=== PATIENT | female | born 1995 | race Caucasian/White ===

== ENCOUNTER 2018-03-23 11:48 | Emergency (ER) | payer BC ==
[2018-03-23] MEDS ORDERED: Sodium Chloride 0.9% 1,000 ML IV ONE (12:13)
[2018-03-23] MEDS ORDERED: Ondansetron 4 MG/2 ML SDV IVPUSH ONE (12:13)
[2018-03-23] MEDS ORDERED: Loperamide 2 MG Cap PO STA (12:13)
--- NOTE | 2018-03-23 12:15 | EDM.PDOC ---
ED HPI GENERAL MEDICAL PROBLEM - General Chief Complaint: Gastrointestinal Problem Stated Complaint: DIARRHEA/VOMITING Time Seen by Provider: 03/23/18 12:00 Source of Information: Reports: Patient, Family (Sister) History Limitations: Reports: No Limitations - History of Present Illness INITIAL COMMENTS - FREE TEXT/NARRATIVE: The patient states that she has had watery diarrhea since , 03/21/2018, had nausea with emesis since last night. No recent fever. She feels generally weak. She has had abdominal cramps. No urinary symptoms. No recent spoiled food, however, several family members had similar gastric intestinal symptoms last week. No recent antibiotics. No recent travel. The patient states that she took NyQuil, with no relief of her symptoms. The patient does not have a PCP. - Related Data Allergies Allergy/AdvReac Type Severity Reaction Status Date / Time Penicillins Allergy Hives Verified 03/23/18 12:01 Home Meds: Home Meds Albuterol [Ventolin HFA] 2 puff INH Q6H 03/23/18 [History] Ondansetron [Zofran ODT] 1 tab PO Q8H PRN #10 tab.dis 03/23/18 [Rx] Past Medical History Respiratory History: Reports: Asthma (possible - never tested) Endocrine/Metabolic History: Reports: Obesity/BMI 30+ - Past Surgical History HEENT Surgical History: Reports: Myringotomy w Tube(s) (bilateral), Tonsillectomy Social & Family History - Tobacco Use Smoking Status *Q: Never Smoker - Alcohol Use Alcohol Use History: Yes Alcohol Use Frequency: Rarely - Recreational Drug Use Recreational Drug Use: Yes Drug Use in Last 12 Months: Yes Recreational Drug Type: Reports: Marijuana/Hashish (smokes on occasion) - Living Situation & Occupation Living situation: Reports: Single, Alone Occupation: Employed ([employer]) ED ROS GENERAL - Review of Systems Review Of Systems: ROS reveals no pertinent complaints other than HPI. ED EXAM, GI/ABD - Physical Exam Exam: See Below Exam Limited By: No Limitations General Appearance: Alert, WD/WN, No Apparent Distress Eyes: Bilateral: Normal Appearance, EOMI Ears: Normal External Exam, Hearing Grossly Normal Nose: Normal Inspection, No Blood Throat/Mouth: Normal Inspection, Normal Lips, Normal Voice, No Airway Compromise Head: Atraumatic, Normocephalic Neck: Normal Inspection, Full Range of Motion Respiratory/Chest: No Respiratory Distress, Lungs Clear, Normal Breath Sounds, No Accessory Muscle Use Cardiovascular: Normal Peripheral Pulses, Regular Rate, Rhythm, No Gallop, No JVD, No Murmur, No Rub GI/Abdominal Exam: Normal Bowel Sounds, Soft, No Organomegaly, No Distention, No Abnormal Bruit, No Mass, Pelvis Stable, Tender (mild, epigastric. Minimal discomfort with palpation elsewhere.), Other (Obese) (Female) Exam: Deferred Rectal (Female) Exam: Deferred Back Exam: Normal Inspection, Full Range of Motion, NT Extremities: Normal Inspection, Normal Range of Motion, No Pedal Edema, Normal Capillary Refill Neurological: Alert, Oriented, Normal Cognition, No Motor/Sensory Deficits Psychiatric: Normal Affect Skin Exam: Warm, Dry, Intact, Normal Color, No Rash Course - Vital Signs Last Recorded V/S: Last Vital Signs Temp 36.7 C 03/23/18 11:57 Pulse 92 03/23/18 11:57 Resp 18 03/23/18 11:57 BP 141/94 H 03/23/18 11:57 Pulse Ox 97 03/23/18 11:57 Orthostatic Blood Pressure [ 127/77 Standing] Orthostatic Blood Pressure [ 131/105 Sitting] Orthostatic Blood Pressure [ 131/81 Supine] - Orders/Labs/Meds Orders: Active Orders 24 hr Category Date Time Status Orthostatic Vital Signs [RC] STAT Care 03/23/18 12:02 Active CULTURE STOOL + SHIGATOX [RM] Stat Lab 03/23/18 13:03 Ordered NOROVIRUS, RT-PCR Stat Lab 03/23/18 13:03 Received ROTAVIRUS DIRECT ANTIGEN STOOL [OP] Stat Lab 03/23/18 13:03 COMP WBC, STOOL [OP] Stat Lab 03/23/18 13:03 COMP Labs: Laboratory Tests 03/23/18 03/23/18 Range/Units 12:00 12:00 WBC 6.43 (3.98-10.04) K/mm3 RBC 4.99 (3.98-5.22) M/mm3 Hgb 13.1 (11.2-15.7) gm/L Hct 39.9 (34.1-44.9) % MCV 80.0 (79.4-94.8) fl MCH 26.3 (25.6-32.2) pg MCHC 32.8 (32.2-35.5) g/dl RDW Std Deviation 45.0 (36.4-46.3) fL Plt Count 222 (182-369) K/mm3 MPV 10.5 (9.4-12.3) fl Neutrophils % (Manual) 69 H (40-60) % Band Neutrophils % 0 (0-10) % Lymphocytes % (Manual) 24 (20-40) % Atypical Lymphs % 0 % Monocytes % (Manual) 3 (2-10) % Eosinophils % (Manual) 4 (0.7-5.8) % Basophils % (Manual) 0 L (0.1-1.2) Platelet Estimate Decreased RBC Morph Comment Normal Sodium 137 (136-145) mEq/L Potassium 3.6 (3.5-5.1) mEq/L Chloride 102 (98-107) mEq/L Carbon Dioxide 23 (21-32) mEq/L Anion Gap 15.6 H (5-15) BUN 9 (7-18) mg/dL Creatinine 0.9 (0.55-1.02) mg/dL Est Cr Clr Drug Dosing 94.54 mL/min Estimated GFR (MDRD) > 60 (>60) mL/min BUN/Creatinine Ratio 10.0 L (14-18) Glucose 109 H (74-106) mg/dL Calcium 9.4 (8.5-10.1) mg/dL Magnesium 2.2 (1.8-2.4) mg/dl Total Bilirubin 0.4 (0.2-1.0) mg/dL AST 31 (15-37) U/L ALT 28 (14-59) U/L Alkaline Phosphatase 65 (46-116) U/L Total Protein 8.3 H (6.4-8.2) g/dl Albumin 4.2 (3.4-5.0) g/dl Globulin 4.1 gm/dL Albumin/Globulin Ratio 1.0 (1-2) Lipase 52 L (73-393) U/L Meds: Medications Discontinued Medications Generic Name Dose Route Start Last Admin Trade Name Freq PRN Reason Stop Dose Admin Sodium Chloride 1,000 mls @ 999 mls/hr 03/23/18 12:13 03/23/18 12:28 Normal Saline IV 03/23/18 13:13 999 mls/hr ONETIME ONE Administration Loperamide HCl 4 mg 03/23/18 12:13 03/23/18 12:30 Imodium PO 03/23/18 12:14 4 mg ONETIME STA Administration Ondansetron HCl 4 mg 03/23/18 12:13 03/23/18 12:30 Zofran IVPUSH 03/23/18 12:14 4 mg ONETIME ONE Administration - Re-Assessments/Exams Free Text/Narrative Re-Assessment/Exam: 03/23/18 12:31 The patient is not orthostatic. 03/23/18 14:26 Test results discussed with the patient and her sister. The stool rotavirus has not returned, but the ED is very busy, and I don't suspect that it will return for several hours, and will not change the patient's management either way. Today's workup is consistent with the patient having viral gastroenteritis. She was started on Imodium and Zofran here in the ED, and I will discharge her home with a prescription for Zofran. I will refer her to the clinic for follow-up, if needed. Departure - Departure Time of Disposition: 14:27 Disposition: Home, Self-Care 01 Condition: Good Clinical Impression: Viral gastroenteritis - Discharge Information *PRESCRIPTION DRUG MONITORING PROGRAM REVIEWED*: Not Applicable *COPY OF PRESCRIPTION DRUG MONITORING REPORT IN PATIENT MARIBELL: Not Applicable Prescriptions: Ondansetron [Zofran ODT] 1 tab PO Q8H PRN #10 tab.dis PRN Reason: Nausea/Vomiting Instructions: Viral Gastroenteritis, Adult, [id number] Referrals: PCP,None [Primary Care Provider] - Bailey Yung, [employer] [ED Midlevel Provider] - Forms: ED Department Discharge Additional Instructions: You were seen in the emergency room for nausea, vomiting, and watery diarrhea. Workup in the ER included blood work, positional blood pressure checks, and several stool studies. You are MOST LIKELY suffering from viral gastroenteritis. Unfortunately, there are no medicines to get rid of the virus - it will have to run its course, however, there are medicines to help treat your symptoms. You have been started on the anti-nausea medicine Zofran. A prescription for Zofran has been sent to the [facility], [address] [facility], located just south and across the [address] from [facility]. Dissolve 1 tablet on your tongue up to every 8 hours, as needed for nausea/vomiting. You have been started on the anti-diarrhea medicine loperamide (Imodium). Take 1 tablet after each loose bowel movement, for total of 8 tablets within a 24- hour period. Be aware that you were given 2 tablets in the ER. Stay well hydrated. Gatorade or Powerade are best. Follow-up with Bailey Yung in the clinic, to establish a primary care provider. - My Orders Last 24 Hours: My Active Orders 03/23/18 12:02 Orthostatic Vital Signs [RC] STAT 03/23/18 13:03 CULTURE STOOL + SHIGATOX [RM] Stat NOROVIRUS, RT-PCR Stat ROTAVIRUS DIRECT ANTIGEN STOOL [OP] Stat WBC, STOOL [OP] Stat - Assessment/Plan Last 24 Hours: My Active Orders 03/23/18 12:02 Orthostatic Vital Signs [RC] STAT 03/23/18 13:03 CULTURE STOOL + SHIGATOX [RM] Stat NOROVIRUS, RT-PCR Stat ROTAVIRUS DIRECT ANTIGEN STOOL [OP] Stat WBC, STOOL [OP] Stat
== END 2018-03-23 14:45 | disposition home or self-care (01) ==
LOC: JD.ED 11:48
DX: A08.4 Viral intestinal infection, unspecified (principal); E66.9 Obesity, unspecified; Z88.0 Allergy status to penicillin
CPT/HCPCS: 36415; 80053; 83690; 83735; 85007; 85027; 87046; 87425; 87798; 89055; 96361; 96374; 99284; A9270; J2405; J7040; 87427

== ENCOUNTER 2018-12-12 11:12 | Emergency (ER) | payer BC | END 2018-12-12 12:41 | disposition left against medical advice (07) | LOC: JD.ED 11:12 | DX: Z53.21 Procedure and treatment not carried out due to patient leaving prior to being seen by health care provider (principal) ==

== ENCOUNTER 2018-12-14 09:01 | Emergency (ER) | payer BC ==
[2018-12-14] MEDS ORDERED: Metoclopramide 10 MG/2 ML SDV IVPUSH STA (09:33)
[2018-12-14] MEDS ORDERED: Sodium Chloride 0.9% 1,000 ML IV ONE (09:33)
[2018-12-14] MEDS ORDERED: Dicyclomine 20 MG/2 ML SDV IM ONE (09:50)
--- NOTE | 2018-12-14 09:50 | EDM.PDOC ---
ED HPI GENERAL MEDICAL PROBLEM - General Chief Complaint: Abdominal Pain Stated Complaint: VOMITTING/CHEST PAIN Time Seen by Provider: 12/14/18 09:20 Source of Information: Reports: Patient, RN Notes Reviewed History Limitations: Reports: No Limitations - History of Present Illness INITIAL COMMENTS - FREE TEXT/NARRATIVE: The patient presents for symptoms of nausea, vomiting, and watery diarrhea since 12/11/2018. Medical records indicates that the patient came to this ED on 12/12/2018, but left without being seen. The patient tells me that because of a long ER wait time, she instead went to [facility] ED. Medical records obtained from [facility] ED from 12/12/2018 indicate that the patient presented with a history of nausea, vomiting, diarrhea, and diffuse abdominal cramping that began 12/11/2018. She reported that she smoked marijuana rarely. On examination, her abdomen had mild diffuse tenderness to palpation. Workup included a CBC, CMP, lipase level, urinalysis, urine test, and influenza swab. Her blood glucose was found to be elevated at 148, and her bicarbonate level depressed at 20. The remainder of her workup was unremarkable. She was diagnosed with gastroenteritis and discharged home with prescriptions for Bentyl 20 mg and Reglan 10 mg. She now presents to our ED stating that her symptoms have persisted. She states that her symptoms improved after she was seen in [place], but that they recurred. She states that she has been taking the Reglan every 4 hours, as prescribed, with her most recent dose around 07:30 this morning. The patient denies eating any spoiled food recently. No recent antibiotics. No recent travel. No similarly ill close contacts. The patient states that she had similar symptoms in the past, from March 2018 through May 2018. Her symptoms at that time were thought related to her gallbladder, and, indeed, she has not had any symptoms since she underwent a cholecystectomy in June 2018. The patient states that she has never undergone an EGD or colonoscopy. The patient's PCP is Dr. Jayla Figueroa, in [place]. Left Upper Abdomen Pain Score (Numeric/FACES): 8 - Related Data Allergies Allergy/AdvReac Type Severity Reaction Status Date / Time cheese Allergy unknown Verified 12/17/18 18:24 gluten Allergy unknown Verified 12/17/18 18:24 mold Allergy unknown Verified 12/17/18 18:24 Penicillins Allergy Hives Verified 12/17/18 18:24 Home Meds: Home Meds . [No Known Home Meds] 12/12/18 [History] Past Medical History Respiratory History: Reports: Asthma (suspected, not tested) Endocrine/Metabolic History: Reports: Obesity/BMI 30+ - Infectious Disease History Infectious Disease History: Reports: Chicken Pox - Past Surgical History HEENT Surgical History: Reports: Adenoidectomy, Myringotomy w Tube(s) (bilateral ), Tonsillectomy GI Surgical History: Reports: Cholecystectomy (jun 2018) Social & Family History - Family History Family Medical History: Noncontributory - Tobacco Use Smoking Status *Q: Never Smoker - Caffeine Use Caffeine Use: Reports: None - Alcohol Use Alcohol Use History: Yes Alcohol Use Frequency: Rarely - Recreational Drug Use Recreational Drug Use: Yes Drug Use in Last 12 Months: Yes Recreational Drug Type: Reports: Marijuana/Hashish (last smoked late November 2018) - Living Situation & Occupation Living situation: Reports: Single, with Significant Other (Boyfriend) Occupation: Employed ([employer]) ED ROS GENERAL - Review of Systems Review Of Systems: ROS reveals no pertinent complaints other than HPI. ED EXAM, GI/ABD - Physical Exam Exam: See Below Exam Limited By: No Limitations General Appearance: Alert, WD/WN, No Apparent Distress Eyes: Bilateral: Normal Appearance, EOMI Ears: Normal External Exam, Hearing Grossly Normal Nose: Normal Inspection Throat/Mouth: Normal Inspection, Normal Lips, Normal Voice, No Airway Compromise Head: Atraumatic, Normocephalic Neck: Normal Inspection, Full Range of Motion Respiratory/Chest: No Respiratory Distress, Lungs Clear, Normal Breath Sounds, No Accessory Muscle Use Cardiovascular: Normal Peripheral Pulses, Regular Rate, Rhythm, No Gallop, No JVD, No Murmur, No Rub GI/Abdominal Exam: Normal Bowel Sounds, Soft, No Organomegaly, No Distention, No Abnormal Bruit, No Mass, Tender (mild, generalized, non-focal), Other (Obese) (Female) Exam: Deferred Rectal (Female) Exam: Deferred Back Exam: Normal Inspection, Full Range of Motion. No: CVA Tenderness (L), CVA Tenderness (R) Extremities: Normal Inspection, Normal Range of Motion, No Pedal Edema, Normal Capillary Refill Neurological: Alert, Oriented, Normal Cognition, No Motor/Sensory Deficits Psychiatric: Normal Affect Skin Exam: Warm, Dry, Intact, Normal Color, No Rash Course - Vital Signs Last Recorded V/S: Last Vital Signs Temp 36.3 C 12/14/18 09:12 Pulse 60 12/14/18 09:12 Resp 20 12/14/18 09:12 BP 146/107 H 12/14/18 09:12 Pulse Ox 100 12/14/18 09:12 - Orders/Labs/Meds Labs: Laboratory Tests 12/14/18 12/14/18 12/14/18 Range/Units 09:26 09:26 11:35 WBC 9.30 (3.98-10.04) K/mm3 RBC 4.72 (3.98-5.22) M/mm3 Hgb 13.1 D (11.2-15.7) gm/L Hct 37.9 (34.1-44.9) % MCV 80.3 (79.4-94.8) fl MCH 27.8 (25.6-32.2) pg MCHC 34.6 (32.2-35.5) g/dl RDW Std Deviation 43.2 (36.4-46.3) fL Plt Count 293 (182-369) K/mm3 MPV 10.5 (9.4-12.3) fl Neutrophils % (Manual) 74 H (40-60) % Band Neutrophils % 0 (0-10) % Lymphocytes % (Manual) 17 L (20-40) % Atypical Lymphs % 0 % Monocytes % (Manual) 6 (2-10) % Eosinophils % (Manual) 2 (0.7-5.8) % Basophils % (Manual) 1 (0.1-1.2) Platelet Estimate Adequate RBC Morph Comment Normal Sodium 139 (136-145) mEq/L Potassium 2.9 L (3.5-5.1) mEq/L Chloride 104 (98-107) mEq/L Carbon Dioxide 18 L (21-32) mEq/L Anion Gap 19.9 H (5-15) BUN 13 (7-18) mg/dL Creatinine 0.9 (0.55-1.02) mg/dL Est Cr Clr Drug Dosing 94.54 mL/min Estimated GFR (MDRD) > 60 (>60) mL/min BUN/Creatinine Ratio 14.4 (14-18) Glucose 115 H (74-106) mg/dL Calcium 9.0 (8.5-10.1) mg/dL Magnesium 1.9 (1.8-2.4) mg/dl Total Bilirubin 0.5 (0.2-1.0) mg/dL AST 15 (15-37) U/L ALT 21 (14-59) U/L Alkaline Phosphatase 61 (46-116) U/L Total Protein 7.6 (6.4-8.2) g/dl Albumin 4.0 (3.4-5.0) g/dl Globulin 3.6 gm/dL Albumin/Globulin Ratio 1.1 (1-2) Lipase 89 (73-393) U/L Urine Color Yellow (Yellow) Urine Appearance Clear (Clear) Urine pH 7.0 (5.0-8.0) Ur Specific [place] 1.025 (1.005-1.030) Urine Protein Negative (Negative) Urine Glucose (UA) Negative (Negative) Urine Ketones 1+ H (Negative) Urine Occult Blood Negative (Negative) Urine Nitrite Negative (Negative) Urine Bilirubin Negative (Negative) Urine Urobilinogen 0.2 (0.2-1.0) Ur Leukocyte Esterase Negative (Negative) Urine RBC 0-5 (0-5) /hpf Urine WBC 0-5 (0-5) /hpf Ur Epithelial Cells 0-5 (0-5) /hpf Urine Bacteria Few (FEW) /hpf Urine Mucus Few (FEW) /hpf Urine HCG, Qual (NEGATIVE) Urine Opiates Screen (AEDPUM=075) Ur Buprenorphine Scrn (CUTOFF=10) Ur Oxycodone Screen (WIS8KI=094) Urine Methadone Screen (HRSDIZ=119) Ur Propoxyphene Screen (PNSQKT=034) Ur Barbiturates Screen (CRSIYR=659) Ur Tricyclics Screen (LBCTUF=867) Ur Phencyclidine Scrn (CUTOFF=25) Ur Amphetamine Screen (BRGBKB=633) U Methamphetamines Scrn (ADSKUM=617) U Benzodiazepines Scrn (ICRXMY=820) U Cocaine Metab Screen (ONYHTJ=071) U Marijuana (THC) Screen (CUTOFF=50) 12/14/18 12/14/18 Range/Units 11:42 11:42 WBC (3.98-10.04) K/mm3 RBC (3.98-5.22) M/mm3 Hgb (11.2-15.7) gm/L Hct (34.1-44.9) % MCV (79.4-94.8) fl MCH (25.6-32.2) pg MCHC (32.2-35.5) g/dl RDW Std Deviation (36.4-46.3) fL Plt Count (182-369) K/mm3 MPV (9.4-12.3) fl Neutrophils % (Manual) (40-60) % Band Neutrophils % (0-10) % Lymphocytes % (Manual) (20-40) % Atypical Lymphs % % Monocytes % (Manual) (2-10) % Eosinophils % (Manual) (0.7-5.8) % Basophils % (Manual) (0.1-1.2) Platelet Estimate RBC Morph Comment Sodium (136-145) mEq/L Potassium (3.5-5.1) mEq/L Chloride (98-107) mEq/L Carbon Dioxide (21-32) mEq/L Anion Gap (5-15) BUN (7-18) mg/dL Creatinine (0.55-1.02) mg/dL Est Cr Clr Drug Dosing mL/min Estimated GFR (MDRD) (>60) mL/min BUN/Creatinine Ratio (14-18) Glucose (74-106) mg/dL Calcium (8.5-10.1) mg/dL Magnesium (1.8-2.4) mg/dl Total Bilirubin (0.2-1.0) mg/dL AST (15-37) U/L ALT (14-59) U/L Alkaline Phosphatase (46-116) U/L Total Protein (6.4-8.2) g/dl Albumin (3.4-5.0) g/dl Globulin gm/dL Albumin/Globulin Ratio (1-2) Lipase (73-393) U/L Urine Color (Yellow) Urine Appearance (Clear) Urine pH (5.0-8.0) Ur Specific [place] (1.005-1.030) Urine Protein (Negative) Urine Glucose (UA) (Negative) Urine Ketones (Negative) Urine Occult Blood (Negative) Urine Nitrite (Negative) Urine Bilirubin (Negative) Urine Urobilinogen (0.2-1.0) Ur Leukocyte Esterase (Negative) Urine RBC (0-5) /hpf Urine WBC (0-5) /hpf Ur Epithelial Cells (0-5) /hpf Urine Bacteria (FEW) /hpf Urine Mucus (FEW) /hpf Urine HCG, Qual Negative (NEGATIVE) Urine Opiates Screen Negative (NXVCPQ=179) Ur Buprenorphine Scrn Negative (CUTOFF=10) Ur Oxycodone Screen Negative (YGU2FM=290) Urine Methadone Screen Negative (RLQQFZ=449) Ur Propoxyphene Screen Negative (VZDOXL=093) Ur Barbiturates Screen Negative (NRZIFI=496) Ur Tricyclics Screen Negative (CUZQJJ=673) Ur Phencyclidine Scrn Negative (CUTOFF=25) Ur Amphetamine Screen Negative (CSRFNY=796) U Methamphetamines Scrn Negative (OIDHNB=720) U Benzodiazepines Scrn Negative (KJXENF=001) U Cocaine Metab Screen Negative (ODMCYH=736) U Marijuana (THC) Screen Presumptive positive H (CUTOFF=50) Meds: Medications Discontinued Medications Generic Name Dose Route Start Last Admin Trade Name Freq PRN Reason Stop Dose Admin Dicyclomine HCl 20 mg 12/14/18 09:50 12/14/18 09:58 Bentyl IM 12/14/18 09:51 20 mg ONETIME ONE Administration Sodium Chloride 1,000 mls @ 999 mls/hr 12/14/18 09:33 12/14/18 09:53 Normal Saline IV 12/14/18 10:33 999 mls/hr ONETIME ONE Administration Promethazine HCl 25 mg/ Sodium 51 mls @ 100 mls/hr 12/14/18 10:53 12/14/18 11 :22 Chloride IV 12/14/18 11:23 100 mls/hr ONETIME ONE Administration Ketorolac Tromethamine 30 mg 12/14/18 11:05 12/14/18 11:25 Toradol IVPUSH 12/14/18 11:06 30 mg ONETIME STA Administration Metoclopramide HCl 10 mg 12/14/18 09:33 12/14/18 09:54 Reglan IVPUSH 12/14/18 09:34 10 mg ONETIME STA Administration Potassium Chloride 40 meq 12/14/18 10:31 12/14/18 11:58 Potassium Chloride Solution PO 12/14/18 10:32 40 meq ONETIME STA Administration - Re-Assessments/Exams Free Text/Narrative Re-Assessment/Exam: 12/14/18 09:45 The etiology of the patient's recurrent nausea and vomiting is unclear, but I am concerned that she may be suffering from cannabis hyperemesis syndrome. I note that her urine drug screen was positive for opioids and THC on 05/15/2018 - the opiates were likely secondary to opiates that she had been given in the ED. A drug screen was not performed when she was seen at [facility] on 12/12/2018. 12/14/18 10:32 The patient's CBC is normal. The patient's CMP is remarkable for potassium depressed at 2.9 and a bicarbonate depressed at 18. Her blood glucose is slightly elevated at 115. The remainder of her CMP is unremarkable. The patient's magnesium level is within normal limits. The patient's lipase is within normal limits. The patient has not yet provided a urine sample. I have ordered 40 mEq of oral potassium solution. 12/14/18 11:05 Notified by Aliya BUENO that the patient has continued to have emesis. I ordered Phenergan 25 mg IVP, but the patient just asked Aliya BUENO if she could take a hot shower. This is highly suggestive of cannabis hyperemesis syndrome, which I know has been considered as the cause for the patient's recurrent emesis in the past. The patient told me (and the ED Physician at [facility] on 12/12/2018) that she rarely uses marijuana, with her last use about 2 weeks ago. If that is true , then her urine drug screen today should be negative. 12/14/18 12:08 The patient's urinalysis is normal, without suggestion of a UTI, and her urine test is negative. Her urine drug screen is positive for THC, indicating that she either uses marijuana rarely but in large quantity, frequently in small quantity, or frequently in large quantity. In any case, I suspect that the patient is suffering from cannabis hyperemesis syndrome. Unfortunately, there are no tests for this condition; it is solely based on the history. The only treatment for cannabis hyperemesis syndrome is to discontinue using cannabis altogether, for once one acquires the condition, even small quantities of marijuana can trigger emesis. 12/14/18 12:47 Test results discussed with the patient. As above, the patient was found to have modest hypokalemia, treated with oral potassium. As above, the patient's urine drug screen was positive for marijuana. I discussed this with the patient. She maintains that while she has not smoked marijuana for about 2 weeks , she acknowledged that she smoked heavily up until then. I explained that I suspect that she is suffering from cannabis hyperemesis syndrome, and the patient did not object to that assessment. I recommended that she discontinue smoking marijuana entirely, but that if her symptoms persist despite quitting marijuana, that she talk to her PCP in [place] about getting an EGD. Departure - Departure Time of Disposition: 12:49 Disposition: Home, Self-Care 01 Condition: Good Clinical Impression: Cannabis hyperemesis syndrome concurrent with and due to cannabis abuse - Discharge Information *PRESCRIPTION DRUG MONITORING PROGRAM REVIEWED*: Not Applicable *COPY OF PRESCRIPTION DRUG MONITORING REPORT IN PATIENT MARIBELL: Not Applicable Instructions: Cannabinoid Hyperemesis Syndrome Referrals: Jayla Figueroa MD [Consulting Physician] - Forms: ED Department Discharge Additional Instructions: You were seen in the emergency room for recurrent nausea, vomiting, and watery diarrhea since , 12/12/2018. Workup in the ER included blood work, a urinalysis, a urine test, and a urine drug screen. Your chemistry panel found your potassium to be modestly low at 2.9. You were given oral potassium as a replacement. Your urine drug screen was positive for marijuana, indicating that you smoked marijuana fairly recently. Based on your history, physical exam, and ER test, we suspect that you're suffering from a condition called cannabis hyperemesis syndrome, where people who smoke a lot of marijuana can develop recurrent nausea and vomiting. Once one has cannabis hyperemesis syndrome, even a small amount of marijuana can trigger vomiting. The only treatment for cannabis hyperemesis syndrome is to quit using marijuana entirely. You may take your previously prescribed Reglan as needed for nausea and vomiting. Stay adequately hydrated. If you continue to have symptoms despite not taking any marijuana, please follow -up with your PCP, Dr. Jayla Figueroa, to discuss undergoing an EGD (scope of your stomach). If any other problems, please do not hesitate to return to the ER.
[2018-12-14] MEDS ORDERED: Potassium Chloride 10% 20 MEQ/15 ML Soln 15 ML UD Cup PO STA (10:31)
[2018-12-14] MEDS ORDERED: Promethazine 25 MG in Sodium Chloride 0.9% 50 ML IV ONE (10:53)
[2018-12-14] MEDS ORDERED: Ketorolac 30 MG/ML SDV IVPUSH STA (11:05)
== END 2018-12-14 13:04 | disposition home or self-care (01) ==
LOC: JD.ED 09:01
DX: F12.188 Cannabis abuse with other cannabis-induced disorder (principal); Z88.0 Allergy status to penicillin; Z88.8 Allergy status to other drugs, medicaments and biological substances; E66.9 Obesity, unspecified; Z90.49 Acquired absence of other specified parts of digestive tract; Z96.22 Myringotomy tube(s) status; Z98.890 Other specified postprocedural states
CPT/HCPCS: 36415; 80053; 80306; 81001; 81025; 83690; 83735; 85007; 85027; 96361; 96365; 96372; 96375; 99284; A9270; J0500; J1885; J2550; J2765; J7040; J7050

== ENCOUNTER 2018-12-17 17:58 | Inpatient (IN) | payer BC ==
[2018-12-17] MEDS ORDERED: Sodium Chloride 0.9% 10 ML Syringe FLUSH PRN (19:06)
[2018-12-17] MEDS ORDERED: diphenhydrAMINE 50 MG/ML SDV IVPUSH ONE (19:06)
[2018-12-17] MEDS ORDERED: Lactated Ringers 1,000 ML IV ONE ×2 (19:06→21:21)
[2018-12-17] MEDS ORDERED: Promethazine 25 MG in Sodium Chloride 0.9% 50 ML IV ONE (19:06)
[2018-12-17] MEDS ORDERED: Famotidine 20 MG/2 ML SDV IVPUSH ONE (19:13)
[2018-12-17] MEDS ORDERED: Potassium Chloride 10 MEQ in Premix Bag 1 BAG IV SCH (20:30)
--- NOTE | 2018-12-17 20:58 | EDM.PDOC ---
ED HPI GENERAL MEDICAL PROBLEM - General Chief Complaint: Abdominal Pain Stated Complaint: VOMITING Time Seen by Provider: 12/17/18 19:52 Source of Information: Reports: Patient, Old Records History Limitations: Reports: No Limitations - History of Present Illness INITIAL COMMENTS - FREE TEXT/NARRATIVE: 23-year-old female presents for evaluation and treatment of vomiting, abdominal pain and chest pain. Patient reports that she's been experiencing symptoms for the last 5 days. This is her fourth visit to an ER for this. She is reporting fevers, reports her temperature at its highest was 99. She states that she has been chilled and nauseated. Reports that she is vomiting about every hour. She is not appreciated any blood in her emesis. She's not had any diarrhea. She reports her last bowel movement was 2 days ago. She has not appreciated any blood in her stool. Reports abdominal pain in the left upper quadrant and chest pain. She denies any shortness of breath. she denies any urinary problems. Last menstrual period started on Sunday. Patient was seen in our ER 2 days ago and diagnosed with marijuana induced hyperemesis. She states that she used to be a heavy marijuana user several times a day but quit 2 weeks ago, states that she continues to have symptoms. She did see her primary care provider for this yesterday. She states that she had a CT done at [facility] in [place]. She has been referred to cardiology. She's not had an EGD done but states that her primary care provider felt that would be a good next step. Duration: Day(s): (5) Left Upper Abdomen Pain Score (Numeric/FACES): 7 - Related Data Allergies Allergy/AdvReac Type Severity Reaction Status Date / Time cheese Allergy unknown Verified 12/17/18 18:24 gluten Allergy unknown Verified 12/17/18 18:24 mold Allergy unknown Verified 12/17/18 18:24 Penicillins Allergy Hives Verified 12/17/18 18:24 Home Meds: Home Meds . 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 Musculoskeletal History: Reports: Back Pain, Chronic Neurological History: Reports: None Psychiatric History: Reports: None Endocrine/Metabolic History: Reports: Obesity/BMI 30+ Hematologic History: Reports: None Immunologic History: Reports: None Oncologic (Cancer) History: Reports: None Dermatologic History: Reports: None - Infectious Disease History Infectious Disease History: Reports: Chicken Pox - Past Surgical History HEENT Surgical History: Reports: Adenoidectomy, Myringotomy w Tube(s), Tonsillectomy Social & Family History - Family History Family Medical History: Noncontributory - Tobacco Use Smoking Status *Q: Never Smoker Second Hand Smoke Exposure: No - Caffeine Use Caffeine Use: Reports: None - Recreational Drug Use Recreational Drug Use: Yes Drug Use in Last 12 Months: Yes Recreational Drug Type: Reports: Marijuana/Hashish - Living Situation & Occupation Living situation: Reports: Single, Alone Occupation: Employed ([employer] ED ROS GENERAL - Review of Systems Review Of Systems: See Below Constitutional: Reports: Chills, Decreased Appetite. Denies: Fever (reports a fever of "99") Respiratory: Denies: Shortness of Breath Cardiovascular: Reports: Chest Pain GI/Abdominal: Reports: Abdominal Pain (LUQ), Nausea, Vomiting. Denies: Diarrhea , Hematemesis, Hematochezia, Melena : Reports: No Symptoms. Denies: Dysuria ED EXAM, GI/ABD - Physical Exam Exam: See Below Exam Limited By: No Limitations General Appearance: Alert, WD/WN, No Apparent Distress, Obese Ears: Normal External Exam Nose: Normal Inspection Throat/Mouth: Normal Inspection, Normal Lips, Normal Oropharynx, Normal Voice, No Airway Compromise, Other (dry mucus membranes) Respiratory/Chest: No Respiratory Distress, Lungs Clear, Normal Breath Sounds Cardiovascular: Normal Peripheral Pulses, Regular Rate, Rhythm, No Murmur GI/Abdominal Exam: Normal Bowel Sounds, Soft, Tender (minor tenderness to palpation to the LUQ) Neurological: Alert, Oriented, Normal Cognition Psychiatric: Normal Affect, Normal Mood Skin Exam: Warm, Dry, Normal Color EKG INTERPRETATION EKG Date: 12/17/18 Time: 19:41 Rhythm: NSR Rate (Beats/Min): 68 [place]: Normal P-Wave: Present QRS: Normal ST-T: Normal QT: Prolonged (QTc is 585) EKG Interpretation Comments: NSR at 68 bpm. Borderline short p-r intercal. QTc is moderately prolonged with a QTc of 585. Tall ""R" wave I - suggest LVH, likely normal for age. Reviewed by myself and Dr. Mohr. Course - Vital Signs Last Recorded V/S: Last Vital Signs Temp 97.7 F 12/17/18 18:22 Pulse 65 12/17/18 18:22 Resp 16 12/17/18 18:22 BP 159/95 H 12/17/18 18:22 Pulse Ox 99 12/17/18 18:22 - Orders/Labs/Meds Orders: Active Orders 24 hr Category Date Time Status Cardiac Monitoring [RC] . DIRECTED Care 12/17/18 21:01 Active EKG 12 Lead [EKG Documentation Completion] [RC] STAT Care 12/17/18 19:12 Active Peripheral IV Care [RC] . DIRECTED Care 12/17/18 19:06 Active Chest 2V [CR] Stat Exams 12/17/18 19:12 Taken Lactated Ringers [Ringers, Lactated] 1,000 ml Med 12/17/18 21:21 Ordered IV .BOLUS Potassium Chloride [KCl 10 MEQ in Water 100 ML] 10 meq Med 12/17/18 20:30 Active Premix Bag 1 bag IV ASDIRECTED Sodium Chloride 0.9% [Saline Flush] Med 12/17/18 19:06 Active 10 ml FLUSH ASDIRECTED PRN Peripheral IV Insertion Adult [OM.PC] Routine Oth 12/17/18 19:06 Ordered Medication Orders Potassium Chloride 10 meq/ (Premix) 100 mls @ 100 mls/hr IV ASDIRECTED MARIBELL Last Admin: 12/17/18 20:39 Dose: 100 mls/hr Lactated Ringer's (Ringers, Lactated) 1,000 mls @ 999 mls/hr IV .BOLUS ONE Stop: 12/17/18 22:21 Sodium Chloride (Saline Flush) 10 ml FLUSH ASDIRECTED PRN PRN Reason: Keep Vein Open Last Admin: 12/17/18 19:23 Dose: 10 ml Labs: Laboratory Tests 12/17/18 12/17/18 12/17/18 Range/Units 19:23 19:23 19:32 WBC 10.94 H (3.98-10.04) K/mm3 RBC 5.18 (3.98-5.22) M/mm3 Hgb 13.9 (11.2-15.7) gm/L Hct 40.7 (34.1-44.9) % MCV 78.6 L (79.4-94.8) fl MCH 26.8 (25.6-32.2) pg MCHC 34.2 (32.2-35.5) g/dl RDW Std Deviation 40.6 (36.4-46.3) fL Plt Count 331 (182-369) K/mm3 MPV 10.4 (9.4-12.3) fl Neutrophils % (Manual) 70 H (40-60) % Band Neutrophils % 0 (0-10) % Lymphocytes % (Manual) 23 (20-40) % Atypical Lymphs % 0 % Monocytes % (Manual) 7 (2-10) % Eosinophils % (Manual) 0 L (0.7-5.8) % Basophils % (Manual) 0 L (0.1-1.2) Platelet Estimate Adequate RBC Morph Comment Normal Sodium 135 L (136-145) mEq/L Potassium 2.5 L (3.5-5.1) mEq/L Chloride 96 L (98-107) mEq/L Carbon Dioxide 23 (21-32) mEq/L Anion Gap 18.5 H (5-15) BUN 10 (7-18) mg/dL Creatinine 0.9 (0.55-1.02) mg/dL Est Cr Clr Drug Dosing 94.54 mL/min Estimated GFR (MDRD) > 60 (>60) mL/min BUN/Creatinine Ratio 11.1 L (14-18) Glucose 116 H (74-106) mg/dL Calcium 9.4 (8.5-10.1) mg/dL Magnesium 2.2 (1.8-2.4) mg/dl Total Bilirubin 0.8 (0.2-1.0) mg/dL AST 14 L (15-37) U/L ALT 23 (14-59) U/L Alkaline Phosphatase 61 (46-116) U/L C-Reactive Protein 0.2 (<1.0) mg/dL Total Protein 8.1 (6.4-8.2) g/dl Albumin 4.4 (3.4-5.0) g/dl Globulin 3.7 gm/dL Albumin/Globulin Ratio 1.2 (1-2) Lipase 70 L (73-393) U/L TSH 3rd Generation 0.811 (0.358-3.74) uIU/mL Urine Color Dark yellow (Yellow) Urine Appearance Clear (Clear) Urine pH 7.0 (5.0-8.0) Ur Specific Center 1.020 (1.005-1.030) Urine Protein 2+ H (Negative) Urine Glucose (UA) Negative (Negative) Urine Ketones 3+ H (Negative) Urine Occult Blood Negative (Negative) Urine Nitrite Negative (Negative) Urine Bilirubin 1+ H (Negative) Urine Urobilinogen 1.0 (0.2-1.0) Ur Leukocyte Esterase Negative (Negative) Urine RBC 0-5 (0-5) /hpf Urine WBC 0-5 (0-5) /hpf Ur Squamous Epith Cells 0-5 (0-5) /hpf Urine Bacteria Few (FEW) /hpf Urine Mucus Few (FEW) /hpf Urine Opiates Screen (USOCNT=553) Ur Buprenorphine Scrn (CUTOFF=10) Ur Oxycodone Screen (QBW1EP=286) Urine Methadone Screen (GUWAJY=261) Ur Propoxyphene Screen (SWGQHB=233) Ur Barbiturates Screen (MCLTUB=019) Ur Tricyclics Screen (YKDPDY=870) Ur Phencyclidine Scrn (CUTOFF=25) Ur Amphetamine Screen (RHMAOK=154) U Methamphetamines Scrn (QGQLCS=726) U Benzodiazepines Scrn (LLCPVK=121) U Cocaine Metab Screen (KNQYYA=402) U Marijuana (THC) Screen (CUTOFF=50) 12/17/18 Range/Units 19:32 WBC (3.98-10.04) K/mm3 RBC (3.98-5.22) M/mm3 Hgb (11.2-15.7) gm/L Hct (34.1-44.9) % MCV (79.4-94.8) fl MCH (25.6-32.2) pg MCHC (32.2-35.5) g/dl RDW Std Deviation (36.4-46.3) fL Plt Count (182-369) K/mm3 MPV (9.4-12.3) fl Neutrophils % (Manual) (40-60) % Band Neutrophils % (0-10) % Lymphocytes % (Manual) (20-40) % Atypical Lymphs % % Monocytes % (Manual) (2-10) % Eosinophils % (Manual) (0.7-5.8) % Basophils % (Manual) (0.1-1.2) Platelet Estimate RBC Morph Comment Sodium (136-145) mEq/L Potassium (3.5-5.1) mEq/L Chloride (98-107) mEq/L Carbon Dioxide (21-32) mEq/L Anion Gap (5-15) BUN (7-18) mg/dL Creatinine (0.55-1.02) mg/dL Est Cr Clr Drug Dosing mL/min Estimated GFR (MDRD) (>60) mL/min BUN/Creatinine Ratio (14-18) Glucose (74-106) mg/dL Calcium (8.5-10.1) mg/dL Magnesium (1.8-2.4) mg/dl Total Bilirubin (0.2-1.0) mg/dL AST (15-37) U/L ALT (14-59) U/L Alkaline Phosphatase (46-116) U/L C-Reactive Protein (<1.0) mg/dL Total Protein (6.4-8.2) g/dl Albumin (3.4-5.0) g/dl Globulin gm/dL Albumin/Globulin Ratio (1-2) Lipase (73-393) U/L TSH 3rd Generation (0.358-3.74) uIU/mL Urine Color (Yellow) Urine Appearance (Clear) Urine pH (5.0-8.0) Ur Specific Center (1.005-1.030) Urine Protein (Negative) Urine Glucose (UA) (Negative) Urine Ketones (Negative) Urine Occult Blood (Negative) Urine Nitrite (Negative) Urine Bilirubin (Negative) Urine Urobilinogen (0.2-1.0) Ur Leukocyte Esterase (Negative) Urine RBC (0-5) /hpf Urine WBC (0-5) /hpf Ur Squamous Epith Cells (0-5) /hpf Urine Bacteria (FEW) /hpf Urine Mucus (FEW) /hpf Urine Opiates Screen Negative (FSLSDC=211) Ur Buprenorphine Scrn Negative (CUTOFF=10) Ur Oxycodone Screen Negative (TMF2FE=443) Urine Methadone Screen Negative (XIQIFY=074) Ur Propoxyphene Screen Presumptive positive (VGWMLW=822) Ur Barbiturates Screen Negative (ZMPRCO=192) Ur Tricyclics Screen Negative (XTBLES=996) Ur Phencyclidine Scrn Negative (CUTOFF=25) Ur Amphetamine Screen Negative (SNNJTJ=218) U Methamphetamines Scrn Negative (HZYQBG=046) U Benzodiazepines Scrn Negative (BDZPGO=400) U Cocaine Metab Screen Negative (ODFGIJ=957) U Marijuana (THC) Screen Presumptive positive H (CUTOFF=50) Meds: Medications Generic Name Dose Route Start Last Admin Trade Name Freq PRN Reason Stop Dose Admin Potassium Chloride 10 meq/ 100 mls @ 100 mls/hr 12/17/18 20:30 12/17/18 20:39 Premix IV 100 mls/hr ASDIRECTED MARIBELL Administration Lactated Ringer's 1,000 mls @ 999 mls/hr 12/17/18 21:21 Ringers, Lactated IV 12/17/18 22:21 .BOLUS ONE Sodium Chloride 10 ml 12/17/18 19:06 12/17/18 19:23 Saline Flush FLUSH 10 ml ASDIRECTED PRN Administration Keep Vein Open Discontinued Medications Generic Name Dose Route Start Last Admin Trade Name Freq PRN Reason Stop Dose Admin Diphenhydramine HCl 50 mg 12/17/18 19:06 12/17/18 19:24 Benadryl IVPUSH 12/17/18 19:07 Not Given ONETIME ONE Famotidine 20 mg 12/17/18 19:13 12/17/18 19:23 Pepcid IVPUSH 12/17/18 19:14 20 mg ONETIME ONE Administration Lactated Ringer's 1,000 mls @ 999 mls/hr 12/17/18 19:06 12/17/18 19:20 Ringers, Lactated IV 12/17/18 20:06 999 mls/hr .BOLUS ONE Administration Promethazine HCl 25 mg/ Sodium 51 mls @ 100 mls/hr 12/17/18 19:06 12/17/18 19 :24 Chloride IV 12/17/18 19:36 100 mls/hr ONETIME ONE Administration - Radiology Interpretation Free Text/Narrative:: 2 view chest xray shows no acute intrathoracic process. formal radiology read pending. - Re-Assessments/Exams Free Text/Narrative Re-Assessment/Exam: 12/17/18 21:33 We were able to obtain the CT of the abdomen and pelvis report from [facility] in [place]. Impression is prior cholecystectomy. No acute CT findings abdomen and pelvis. Discussed lab results with the patient. I do feel this is likely hyperemesis induced by marijuana. However, with her potassium of 2.5 and her dehydration I do feel it would be a good idea he observed in the hospital overnight. Patient agrees. Discussed case with Dr. Fam. He agrees to the admission. Will put on telemetry with her low potassium and her long QT. She'll be admitted for observation. Departure - Departure Time of Disposition: 21:42 Disposition: Refer to Observation Condition: Fair Clinical Impression: Cannabis hyperemesis syndrome concurrent with and due to cannabis abuse Nausea and vomiting Qualifiers: Vomiting type: unspecified Vomiting Intractability: non-intractable Qualified Code(s): R11.2 - Nausea with vomiting, unspecified - Discharge Information *PRESCRIPTION DRUG MONITORING PROGRAM REVIEWED*: No *COPY OF PRESCRIPTION DRUG MONITORING REPORT IN PATIENT MARIBELL: No Referrals: Jayla Figueroa MD [Primary Care Provider] - Forms: ED Department Discharge Additional Instructions: Patient admitted for observation for hypokalemia and hyperemesis. - My Orders Last 24 Hours: My Active Orders 12/17/18 19:06 Peripheral IV Care [RC] . DIRECTED Sodium Chloride 0.9% [Saline Flush] 10 ml FLUSH ASDIRECTED PRN Peripheral IV Insertion Adult [OM.PC] Routine 12/17/18 19:12 EKG 12 Lead [EKG Documentation Completion] [RC] STAT Chest 2V [CR] Stat 12/17/18 20:30 Potassium Chloride [KCl 10 MEQ in Water 100 ML] 10 meq Premix Bag 1 bag IV ASDIRECTED 12/17/18 21:01 Cardiac Monitoring [RC] . DIRECTED 12/17/18 21:21 Lactated Ringers [Ringers, Lactated] 1,000 ml IV .BOLUS - Assessment/Plan Last 24 Hours: My Active Orders 12/17/18 19:06 Peripheral IV Care [RC] . DIRECTED Sodium Chloride 0.9% [Saline Flush] 10 ml FLUSH ASDIRECTED PRN Peripheral IV Insertion Adult [OM.PC] Routine 12/17/18 19:12 EKG 12 Lead [EKG Documentation Completion] [RC] STAT Chest 2V [CR] Stat 12/17/18 20:30 Potassium Chloride [KCl 10 MEQ in Water 100 ML] 10 meq Premix Bag 1 bag IV ASDIRECTED 12/17/18 21:01 Cardiac Monitoring [RC] . DIRECTED 12/17/18 21:21 Lactated Ringers [Ringers, Lactated] 1,000 ml IV .BOLUS
[2018-12-17] MEDS ORDERED: Metoclopramide 10 MG/2 ML SDV IVPUSH ONE (22:00)
[2018-12-17] MEDS ORDERED: Metoclopramide 10 MG/2 ML SDV IVPUSH PRN (23:24)
[2018-12-18] MEDS: Potassium Chloride 10 MEQ in Premix Bag 1 BAG IV SCH ×7 (00:03→15:39)
[2018-12-18] MEDS: Lactated Ringers 1,000 ML IV SCH ×3 (04:04→18:23)
[2018-12-18] MEDS ORDERED: Ondansetron 4 MG/2 ML SDV IVPUSH PRN ×2 (06:44→19:03)
[2018-12-18] MEDS ORDERED: Scopolamine 1.5 MG Transdermal Patch TRDERM PRN (06:44)
--- NOTE | 2018-12-18 06:53 | CR ---
Chest: Two views of the chest were obtained. Comparison: Prior [place] chest x-ray of 05/15/18. Heart size and mediastinum are normal. Lungs are clear. Bony structures appear within normal limits for the patient's age. Impression: 1. Nothing acute is appreciated on two-view chest x-ray. Diagnostic code #1
[2018-12-18] MEDS: Famotidine 20 MG/2 ML SDV IVPUSH SCH ×2 (08:31→21:14)
[2018-12-18] MEDS ORDERED: Ondansetron 4 MG/2 ML SDV IVPUSH SCH (10:15)
[2018-12-18] MEDS ORDERED: Dexamethasone 10 MG/ML SDV IVPUSH ONE (10:20)
[2018-12-18] MEDS: SODIUM CHLORIDE 0.9% IV SCH ×4 (10:57→22:29)
[2018-12-18] MEDS: ONDANSETRON IV SCH ×4 (10:57→22:29)
[2018-12-18] MEDS ORDERED: Potassium Chloride 10 MEQ/5 ML SDV IV ONE (11:30)
[2018-12-18] MEDS ORDERED: Potassium Chloride 10 MEQ in Premix Bag 1 BAG IV ONE (11:30)
--- NOTE | 2018-12-18 15:09 | PCM.HP ---
H&P History of Present Illness - General Date of Service: 12/18/18 Admit Problem/Dx: Admission Diagnosis/Problem Admission Diagnosis/Problem Hypokalemia 23 yo WF with frequent N/V, weight loss, poor PO intake since 12/12/18. States that similar symptoms 6 mo ago, underwent cholecystectomy. States that has been using THC for 4 years regularly. Quit using prior to onset of the latest bout of N/V. Similar presentation 6 mo ago. Restarted using THC after that. Admitted with hypokalemia for further treatment. Left Upper Abdomen Pain Score (Numeric/FACES): 5 - Related Data Allergies/Adverse Reactions: Allergies Allergy/AdvReac Type Severity Reaction Status Date / Time cheese Allergy unknown Verified 12/17/18 18:24 gluten Allergy unknown Verified 12/17/18 18:24 mold Allergy unknown Verified 12/17/18 18:24 Penicillins Allergy Hives Verified 12/17/18 18:24 Home Medications: Home Meds . [No Known Home Meds] 12/12/18 [History] Past Medical History - Past Health History Medical/Surgical History: Denies Medical/Surgical History HEENT History: Reports: None Cardiovascular History: Reports: None Respiratory History: Reports: Asthma Gastrointestinal History: Reports: None Genitourinary History: Reports: None SH[employer]CL[employer] INST[employer]ER History: Reports: None Musculoskeletal History: Reports: Back Pain, Chronic Neurological History: Reports: None Psychiatric History: Reports: None Endocrine/Metabolic History: Reports: Obesity/BMI 30+ Hematologic History: Reports: None Immunologic History: Reports: None Oncologic (Cancer) History: Reports: None Dermatologic History: Reports: None - Infectious Disease History Infectious Disease History: Reports: Chicken Pox - Past Surgical History HEENT Surgical History: Reports: Adenoidectomy, Myringotomy w Tube(s), Tonsillectomy Cardiovascular Surgical History: Reports: None Respiratory Surgical History: Reports: None GI Surgical History: Reports: None Endocrine Surgical History: Reports: None Musculoskeletal Surgical History: Reports: None Social & Family History - Family History Family Medical History: Noncontributory - Tobacco Use Smoking Status *Q: Never Smoker Second Hand Smoke Exposure: No - Caffeine Use Caffeine Use: Reports: Coffee - Recreational Drug Use Recreational Drug Use: Yes Drug Use in Last 12 Months: Yes Recreational Drug Type: Reports: Marijuana/Hashish Recreational Drug Use Frequency: Daily - Living Situation & Occupation Living situation: Reports: Single, Alone Occupation: Employed ([employer]) H&P Review of Systems - Review of Systems: Review Of Systems: See Below General: Reports: Fatigue, Weight Loss. Denies: Fever, Chills HEENT: Denies: Dysphasia, Sore Throat Pulmonary: Denies: Shortness of Breath, Wheezing, Cough Cardiovascular: Denies: Chest Pain, Palpitations, Dyspnea on Exertion Gastrointestinal: Reports: Nausea, Vomiting. Denies: Hematemesis, Hematochezia , Melena Genitourinary: Denies: Dysuria, Frequency Skin: Denies: Cyanosis, Jaundice Psychiatric: Denies: Depression, Anxiety, Suicidal Ideation Neurological: Denies: Confusion, Seizure, Syncope Hematologic/Lymphatic: Denies: Easy Bleeding, Easy Bruising Exam - Exam Exam: See Below - Vital Signs Vital Signs: Last Vital Signs Temp 97.9 F 12/18/18 12:38 Pulse 71 12/18/18 12:37 Resp 14 12/18/18 12:37 BP 128/80 12/18/18 12:37 Pulse Ox 99 12/18/18 12:37 Weight: 214 lb 4.8 oz - Exam General: Alert, Oriented, Cooperative HEENT: Conjunctiva Clear, Nares Patent Neck: Supple, Trachea Midline. No: Lymphadenopathy Lungs: Clear to Auscultation, Normal Respiratory Effort Cardiovascular: Regular Rate, Regular Rhythm, Normal S1, Normal S2 GI/Abdominal Exam: Normal Bowel Sounds, Soft, Non-Tender, No Organomegaly Extremities: No Pedal Edema, Normal Capillary Refill Peripheral Pulses: 2+: Dorsalis Pedis (L), Dorsalis Pedis (R) Skin: Warm, Dry, Intact Neurological: Cranial Nerves Intact, Reflexes Equal Bilateral, Strength Equal Bilateral, Normal Speech Neuro Extensive - Mental Status: Oriented x3, Memory Intact Psychiatric: No: Suicidal Ideation - Patient Data Lab Results Last 24 hrs: Laboratory Results - last 24 hr 12/17/18 12/17/18 12/17/18 Range/Units 19:23 19:23 19:32 WBC 10.94 H (3.98-10.04) K/mm3 RBC 5.18 (3.98-5.22) M/mm3 Hgb 13.9 (11.2-15.7) gm/L Hct 40.7 (34.1-44.9) % MCV 78.6 L (79.4-94.8) fl MCH 26.8 (25.6-32.2) pg MCHC 34.2 (32.2-35.5) g/dl RDW Std Deviation 40.6 (36.4-46.3) fL Plt Count 331 (182-369) K/mm3 MPV 10.4 (9.4-12.3) fl Neut % (Auto) (34.0-71.1) % Lymph % (Auto) (19.3-51.7) % [place] % (Auto) (4.7-12.5) % Eos % (Auto) (0.7-5.8) Baso % (Auto) (0.1-1.2) % Neut # (Auto) (1.56-6.13) K/mm3 Lymph # (Auto) (1.18-3.74) K/mm3 [place] # (Auto) (0.24-0.36) K/mm3 Eos # (Auto) (0.04-0.36) K/mm3 Baso # (Auto) (0.01-0.08) K/mm3 Neutrophils % (Manual) 70 H (40-60) % Band Neutrophils % 0 (0-10) % Lymphocytes % (Manual) 23 (20-40) % Atypical Lymphs % 0 % Monocytes % (Manual) 7 (2-10) % Eosinophils % (Manual) 0 L (0.7-5.8) % Basophils % (Manual) 0 L (0.1-1.2) Platelet Estimate Adequate RBC Morph Comment Normal Sodium 135 L (136-145) mEq/L Potassium 2.5 L (3.5-5.1) mEq/L Chloride 96 L (98-107) mEq/L Carbon Dioxide 23 (21-32) mEq/L Anion Gap 18.5 H (5-15) BUN 10 (7-18) mg/dL Creatinine 0.9 (0.55-1.02) mg/dL Est Cr Clr Drug Dosing 94.54 mL/min Estimated GFR (MDRD) > 60 (>60) mL/min BUN/Creatinine Ratio 11.1 L (14-18) Glucose 116 H (74-106) mg/dL Calcium 9.4 (8.5-10.1) mg/dL Magnesium 2.2 (1.8-2.4) mg/dl Total Bilirubin 0.8 (0.2-1.0) mg/dL AST 14 L (15-37) U/L ALT 23 (14-59) U/L Alkaline Phosphatase 61 (46-116) U/L C-Reactive Protein 0.2 (<1.0) mg/dL Total Protein 8.1 (6.4-8.2) g/dl Albumin 4.4 (3.4-5.0) g/dl Globulin 3.7 gm/dL Albumin/Globulin Ratio 1.2 (1-2) Lipase 70 L (73-393) U/L TSH 3rd Generation 0.811 (0.358-3.74) uIU/mL Urine Color Dark yellow (Yellow) Urine Appearance Clear (Clear) Urine pH 7.0 (5.0-8.0) Ur Specific [place] 1.020 (1.005-1.030) Urine Protein 2+ H (Negative) Urine Glucose (UA) Negative (Negative) Urine Ketones 3+ H (Negative) Urine Occult Blood Negative (Negative) Urine Nitrite Negative (Negative) Urine Bilirubin 1+ H (Negative) Urine Urobilinogen 1.0 (0.2-1.0) Ur Leukocyte Esterase Negative (Negative) Urine RBC 0-5 (0-5) /hpf Urine WBC 0-5 (0-5) /hpf Ur Squamous Epith Cells 0-5 (0-5) /hpf Urine Bacteria Few (FEW) /hpf Urine Mucus Few (FEW) /hpf Urine Opiates Screen (DVAASJ=698) Ur Buprenorphine Scrn (CUTOFF=10) Ur Oxycodone Screen (LOX3YT=507) Urine Methadone Screen (MCHXOE=208) Ur Propoxyphene Screen (BWRAYC=404) Ur Barbiturates Screen (WKEXNR=709) Ur Tricyclics Screen (OEWRFT=479) Ur Phencyclidine Scrn (CUTOFF=25) Ur Amphetamine Screen (KLGLHJ=401) U Methamphetamines Scrn (YNFAXR=489) U Benzodiazepines Scrn (UAIVBL=751) U Cocaine Metab Screen (IKPQCJ=323) U Marijuana (THC) Screen (CUTOFF=50) 12/17/18 12/18/18 12/18/18 Range/Units 19:32 08:40 08:40 WBC 9.48 (3.98-10.04) K/mm3 RBC 4.73 (3.98-5.22) M/mm3 Hgb 12.8 (11.2-15.7) gm/L Hct 38.1 (34.1-44.9) % MCV 80.5 (79.4-94.8) fl MCH 27.1 (25.6-32.2) pg MCHC 33.6 (32.2-35.5) g/dl RDW Std Deviation 41.7 (36.4-46.3) fL Plt Count 289 (182-369) K/mm3 MPV 10.4 (9.4-12.3) fl Neut % (Auto) 69.3 (34.0-71.1) % Lymph % (Auto) 21.2 (19.3-51.7) % [place] % (Auto) 8.9 (4.7-12.5) % Eos % (Auto) 0.3 L (0.7-5.8) Baso % (Auto) 0.1 (0.1-1.2) % Neut # (Auto) 6.57 H (1.56-6.13) K/mm3 Lymph # (Auto) 2.01 (1.18-3.74) K/mm3 [place] # (Auto) 0.84 H (0.24-0.36) K/mm3 Eos # (Auto) 0.03 L (0.04-0.36) K/mm3 Baso # (Auto) 0.01 (0.01-0.08) K/mm3 Neutrophils % (Manual) (40-60) % Band Neutrophils % (0-10) % Lymphocytes % (Manual) (20-40) % Atypical Lymphs % % Monocytes % (Manual) (2-10) % Eosinophils % (Manual) (0.7-5.8) % Basophils % (Manual) (0.1-1.2) Platelet Estimate RBC Morph Comment Sodium 136 (136-145) mEq/L Potassium 3.0 L (3.5-5.1) mEq/L Chloride 101 (98-107) mEq/L Carbon Dioxide 23 (21-32) mEq/L Anion Gap 15.0 (5-15) BUN 8 (7-18) mg/dL Creatinine 0.8 (0.55-1.02) mg/dL Est Cr Clr Drug Dosing 106.36 mL/min Estimated GFR (MDRD) > 60 (>60) mL/min BUN/Creatinine Ratio 10.0 L (14-18) Glucose 112 H (74-106) mg/dL Calcium 8.9 (8.5-10.1) mg/dL Magnesium 2.1 (1.8-2.4) mg/dl Total Bilirubin (0.2-1.0) mg/dL AST (15-37) U/L ALT (14-59) U/L Alkaline Phosphatase (46-116) U/L C-Reactive Protein (<1.0) mg/dL Total Protein (6.4-8.2) g/dl Albumin (3.4-5.0) g/dl Globulin gm/dL Albumin/Globulin Ratio (1-2) Lipase (73-393) U/L TSH 3rd Generation (0.358-3.74) uIU/mL Urine Color (Yellow) Urine Appearance (Clear) Urine pH (5.0-8.0) Ur Specific [place] (1.005-1.030) Urine Protein (Negative) Urine Glucose (UA) (Negative) Urine Ketones (Negative) Urine Occult Blood (Negative) Urine Nitrite (Negative) Urine Bilirubin (Negative) Urine Urobilinogen (0.2-1.0) Ur Leukocyte Esterase (Negative) Urine RBC (0-5) /hpf Urine WBC (0-5) /hpf Ur Squamous Epith Cells (0-5) /hpf Urine Bacteria (FEW) /hpf Urine Mucus (FEW) /hpf Urine Opiates Screen Negative (ERKNBL=335) Ur Buprenorphine Scrn Negative (CUTOFF=10) Ur Oxycodone Screen Negative (XXV7WN=254) Urine Methadone Screen Negative (XIXZHG=544) Ur Propoxyphene Screen Presumptive positive (XYFZND=285) Ur Barbiturates Screen Negative (RKGQDQ=322) Ur Tricyclics Screen Negative (BJRQCE=935) Ur Phencyclidine Scrn Negative (CUTOFF=25) Ur Amphetamine Screen Negative (ZGSYTE=512) U Methamphetamines Scrn Negative (DHTDHZ=772) U Benzodiazepines Scrn Negative (WHMHNR=573) U Cocaine Metab Screen Negative (JQEHHQ=548) U Marijuana (THC) Screen Presumptive positive H (CUTOFF=50) Result Diagrams: 12/18/18 08:40 12/18/18 08:40 - Problem List (1) Cannabis hyperemesis syndrome concurrent with and due to cannabis abuse SNOMED Code(s): 58811148914148241 ICD Code: F12.188 - CANNABIS ABUSE WITH OTHER CANNABIS-INDUCED DISORDER Status: Acute Priority: High Current Visit: Yes (2) Nausea and vomiting SNOMED Code(s): 41880834 ICD Code: R11.2 - NAUSEA WITH VOMITING, UNSPECIFIED Status: Acute Priority: High Current Visit: Yes Qualifiers: Vomiting type: unspecified Vomiting Intractability: non-intractable Qualified Code(s): R11.2 - Nausea with vomiting, unspecified (3) Hypokalemia SNOMED Code(s): 85770260 ICD Code: E87.6 - HYPOKALEMIA Status: Acute Priority: High Current Visit: Yes (4) Abdominal pain SNOMED Code(s): 45311072 ICD Code: R10.9 - UNSPECIFIED ABDOMINAL PAIN Status: Acute Priority: High Current Visit: No Qualifiers: Abdominal location: left upper quadrant Qualified Code(s): R10.12 - Left upper quadrant pain Problem List Initiated/Reviewed/Updated: Yes Orders Last 24hrs: Active Orders 24 hr Category Date Time Status Patient Status [ADT] Routine ADT 12/17/18 22:26 Active Cardiac Monitoring [RC] . DIRECTED Care 12/17/18 21:01 Active Communication Order [RC] DAILY Care 12/17/18 23:25 Active EKG 12 Lead [EKG Documentation Completion] [RC] STAT Care 12/17/18 19:12 Active Notify Provider Consults [RC] ASDIRECTED Care 12/18/18 11:14 Active Up ad Marisa [RC] BID Care 12/17/18 23:24 Active NPO [Nothing Per Oral Diet] [DIET] Diet 12/18/18 Breakfast Active Famotidine [Pepcid] Med 12/18/18 09:00 Active 20 mg IVPUSH BID Lactated Ringers [Ringers, Lactated] 1,000 ml Med 12/17/18 23:30 Active IV ASDIRECTED Ondansetron [Zofran] Med 12/18/18 06:44 Active 4 mg IVPUSH Q4H PRN Ondansetron [Zofran] 6 mg Med 12/18/18 10:30 Active Sodium Chloride 0.9% [Normal Saline] 50 ml IV Q4H Potassium Chloride [KCl 10 MEQ in Water 100 ML] 10 meq Med 12/18/18 12:45 Active Premix Bag 1 bag IV Q1H Remove Patch Med 12/21/18 07:00 Active 1 ea TRDERM Q72H Sodium Chloride 0.9% [Saline Flush] Med 12/17/18 19:06 Active 10 ml FLUSH ASDIRECTED PRN Peripheral IV Insertion Adult [OM.PC] Routine Oth 12/17/18 19:06 Ordered Resuscitation Status Routine Resus Stat 12/17/18 22:53 Ordered Medication Orders Famotidine (Pepcid) 20 mg IVPUSH BID MARIBELL Last Admin: 12/18/18 08:31 Dose: 20 mg Lactated Ringer's (Ringers, Lactated) 1,000 mls @ 150 mls/hr IV ASDIRECTED MARIBELL Last Admin: 12/18/18 11:24 Dose: 150 mls/hr Infusion: 12/18/18 10:45 Dose: 150 mls/hr Admin: 12/18/18 04:04 Dose: 150 mls/hr Ondansetron HCl 6 mg/ Sodium (Chloride) 53 mls @ 212 mls/hr IV Q4H MARIBELL Last Admin: 12/18/18 14:20 Dose: 212 mls/hr Infusion: 12/18/18 11:12 Dose: 212 mls/hr Admin: 12/18/18 10:57 Dose: 212 mls/hr Potassium Chloride 10 meq/ (Premix) 100 mls @ 100 mls/hr IV Q1H MARIBELL Stop: 12/18/18 15:44 Last Admin: 12/18/18 14:17 Dose: 100 mls/hr Infusion: 12/18/18 13:42 Dose: 100 mls/hr Admin: 12/18/18 12:42 Dose: 100 mls/hr Miscellaneous Information (Remove Patch) 1 ea TRDERM Q72H MARIBELL Ondansetron HCl (Zofran) 4 mg IVPUSH Q4H PRN PRN Reason: Nausea/Vomiting Last Admin: 12/18/18 06:52 Dose: 4 mg Sodium Chloride (Saline Flush) 10 ml FLUSH ASDIRECTED PRN PRN Reason: Keep Vein Open Last Admin: 12/17/18 19:23 Dose: 10 ml Assessment/Plan Comment:: 1. will increase ondansetron, will add Decadron. Likely related to withdrawal after prolonged use of THC. Discussed in details. 2. replace electrolytes. 3. pain most likely due to intractable vomiting, involved surgery for possible EGD, at mother's requets.
--- NOTE | 2018-12-18 15:30 | PCM.CONS ---
H&P History of Present Illness - General Date of Service: 12/18/18 Admit Problem/Dx: Admission Diagnosis/Problem Admission Diagnosis/Problem abdominal pain, nausea/emesis Source of Information: Patient, Family History Limitations: Reports: No Limitations - History of Present Illness Initial Comments - Free Text/Narative: 23 yo female, admitted to the hospitalist service last night due to abdominal pain, nausea/emesis, that has persisted for the past 6 days. The patient had 3 ER visits and an outpatient visit with her PCM in [place] for these recent complaints. Work-up included a CT scan, which was obtained two days ago in [place], and was reportedly normal. She was told by her PCM that she had an abnormal EKG, for which she is awaiting cardiology outpatient evaluation. Denies CP with exertion, and denies palpitations. Patient used to smoke marijuana, but denies use in the past two weeks. Denies relationship between symptoms and marijuana use. The patient does have a history of similar symptoms in Jul 2018, which eventually led to a laparoscopic cholecystectomy, performed in [place]. Her symptoms improved since surgery, until about 6 days ago. Denies headaches, visual changes, diarrhea, constipation, urinary symptoms, abnormal vaginal discharge. LMP was a week ago, normal. Left Upper Abdomen Pain Score (Numeric/FACES): 5 - Related Data Allergies/Adverse Reactions: Allergies Allergy/AdvReac Type Severity Reaction Status Date / Time cheese Allergy unknown Verified 12/17/18 18:24 gluten Allergy unknown Verified 12/17/18 18:24 mold Allergy unknown Verified 12/17/18 18:24 Penicillins Allergy Hives Verified 12/17/18 18:24 Home Medications: Home Meds . 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 Musculoskeletal History: Reports: Back Pain, Chronic Neurological History: Reports: None Psychiatric History: Reports: None Endocrine/Metabolic History: Reports: Obesity/BMI 30+ Hematologic History: Reports: None Immunologic History: Reports: None Oncologic (Cancer) History: Reports: None Dermatologic History: Reports: None - Infectious Disease History Infectious Disease History: Reports: Chicken Pox - Past Surgical History HEENT Surgical History: Reports: Adenoidectomy, Myringotomy w Tube(s), Tonsillectomy Cardiovascular Surgical History: Reports: None Respiratory Surgical History: Reports: None GI Surgical History: Reports: Cholecystectomy (Lap oh (Jul 2018).) Endocrine Surgical History: Reports: None Musculoskeletal Surgical History: Reports: None Social & Family History - Family History Family Medical History: Noncontributory - Tobacco Use Smoking Status *Q: Never Smoker Second Hand Smoke Exposure: No - Caffeine Use Caffeine Use: Reports: Coffee - Recreational Drug Use Recreational Drug Use: Yes Drug Use in Last 12 Months: Yes Recreational Drug Type: Reports: Marijuana/Hashish (Quit use 2 weeks ago.) Recreational Drug Use Frequency: Daily - Living Situation & Occupation Living situation: Reports: Single, Alone Occupation: Employed ([employer]) H&P Review of Systems - Review of Systems: Review Of Systems: ROS reveals no pertinent complaints other than HPI. Exam - Exam Exam: See Below - Vital Signs Vital Signs: Last Vital Signs Temp 36.6 C 12/18/18 12:38 Pulse 71 12/18/18 12:37 Resp 14 12/18/18 12:37 BP 128/80 12/18/18 12:37 Pulse Ox 99 12/18/18 12:37 Weight: 97.205 kg - Exam General: Alert, Oriented, Cooperative HEENT: Conjunctiva Clear. No: Scleral Icterus Neck: Supple, Trachea Midline GI/Abdominal Exam: Soft, No Distention, Tender (Tender to the epigastric region) , Other (Obese. well-healed laparoscopic surgical scars.) Extremities: Normal Inspection Neuro Extensive - Mental Status: Alert, Oriented x3, Normal Mood/Affect, Normal Cognition, Memory Intact Psychiatric: Alert, Normal Affect, Normal Mood - Patient Data Lab Results Last 24 hrs: Laboratory Results - last 24 hr 12/17/18 12/17/18 12/17/18 Range/Units 19:23 19:23 19:32 WBC 10.94 H (3.98-10.04) K/mm3 RBC 5.18 (3.98-5.22) M/mm3 Hgb 13.9 (11.2-15.7) gm/L Hct 40.7 (34.1-44.9) % MCV 78.6 L (79.4-94.8) fl MCH 26.8 (25.6-32.2) pg MCHC 34.2 (32.2-35.5) g/dl RDW Std Deviation 40.6 (36.4-46.3) fL Plt Count 331 (182-369) K/mm3 MPV 10.4 (9.4-12.3) fl Neut % (Auto) (34.0-71.1) % Lymph % (Auto) (19.3-51.7) % Kendall % (Auto) (4.7-12.5) % Eos % (Auto) (0.7-5.8) Baso % (Auto) (0.1-1.2) % Neut # (Auto) (1.56-6.13) K/mm3 Lymph # (Auto) (1.18-3.74) K/mm3 Kendall # (Auto) (0.24-0.36) K/mm3 Eos # (Auto) (0.04-0.36) K/mm3 Baso # (Auto) (0.01-0.08) K/mm3 Neutrophils % (Manual) 70 H (40-60) % Band Neutrophils % 0 (0-10) % Lymphocytes % (Manual) 23 (20-40) % Atypical Lymphs % 0 % Monocytes % (Manual) 7 (2-10) % Eosinophils % (Manual) 0 L (0.7-5.8) % Basophils % (Manual) 0 L (0.1-1.2) Platelet Estimate Adequate RBC Morph Comment Normal Sodium 135 L (136-145) mEq/L Potassium 2.5 L (3.5-5.1) mEq/L Chloride 96 L (98-107) mEq/L Carbon Dioxide 23 (21-32) mEq/L Anion Gap 18.5 H (5-15) BUN 10 (7-18) mg/dL Creatinine 0.9 (0.55-1.02) mg/dL Est Cr Clr Drug Dosing 94.54 mL/min Estimated GFR (MDRD) > 60 (>60) mL/min BUN/Creatinine Ratio 11.1 L (14-18) Glucose 116 H (74-106) mg/dL Calcium 9.4 (8.5-10.1) mg/dL Magnesium 2.2 (1.8-2.4) mg/dl Total Bilirubin 0.8 (0.2-1.0) mg/dL AST 14 L (15-37) U/L ALT 23 (14-59) U/L Alkaline Phosphatase 61 (46-116) U/L C-Reactive Protein 0.2 (<1.0) mg/dL Total Protein 8.1 (6.4-8.2) g/dl Albumin 4.4 (3.4-5.0) g/dl Globulin 3.7 gm/dL Albumin/Globulin Ratio 1.2 (1-2) Lipase 70 L (73-393) U/L TSH 3rd Generation 0.811 (0.358-3.74) uIU/mL Urine Color Dark yellow (Yellow) Urine Appearance Clear (Clear) Urine pH 7.0 (5.0-8.0) Ur Specific [place] 1.020 (1.005-1.030) Urine Protein 2+ H (Negative) Urine Glucose (UA) Negative (Negative) Urine Ketones 3+ H (Negative) Urine Occult Blood Negative (Negative) Urine Nitrite Negative (Negative) Urine Bilirubin 1+ H (Negative) Urine Urobilinogen 1.0 (0.2-1.0) Ur Leukocyte Esterase Negative (Negative) Urine RBC 0-5 (0-5) /hpf Urine WBC 0-5 (0-5) /hpf Ur Squamous Epith Cells 0-5 (0-5) /hpf Urine Bacteria Few (FEW) /hpf Urine Mucus Few (FEW) /hpf Urine Opiates Screen (CTJVPT=246) Ur Buprenorphine Scrn (CUTOFF=10) Ur Oxycodone Screen (DVH8RQ=800) Urine Methadone Screen (WPQAEJ=158) Ur Propoxyphene Screen (AIAZJB=614) Ur Barbiturates Screen (ZGYSKW=470) Ur Tricyclics Screen (XMKKZG=254) Ur Phencyclidine Scrn (CUTOFF=25) Ur Amphetamine Screen (TMGZOY=019) U Methamphetamines Scrn (JOGPOQ=899) U Benzodiazepines Scrn (XTEHXM=639) U Cocaine Metab Screen (FTPGIL=118) U Marijuana (THC) Screen (CUTOFF=50) 12/17/18 12/18/18 12/18/18 Range/Units 19:32 08:40 08:40 WBC 9.48 (3.98-10.04) K/mm3 RBC 4.73 (3.98-5.22) M/mm3 Hgb 12.8 (11.2-15.7) gm/L Hct 38.1 (34.1-44.9) % MCV 80.5 (79.4-94.8) fl MCH 27.1 (25.6-32.2) pg MCHC 33.6 (32.2-35.5) g/dl RDW Std Deviation 41.7 (36.4-46.3) fL Plt Count 289 (182-369) K/mm3 MPV 10.4 (9.4-12.3) fl Neut % (Auto) 69.3 (34.0-71.1) % Lymph % (Auto) 21.2 (19.3-51.7) % Kendall % (Auto) 8.9 (4.7-12.5) % Eos % (Auto) 0.3 L (0.7-5.8) Baso % (Auto) 0.1 (0.1-1.2) % Neut # (Auto) 6.57 H (1.56-6.13) K/mm3 Lymph # (Auto) 2.01 (1.18-3.74) K/mm3 Kendall # (Auto) 0.84 H (0.24-0.36) K/mm3 Eos # (Auto) 0.03 L (0.04-0.36) K/mm3 Baso # (Auto) 0.01 (0.01-0.08) K/mm3 Neutrophils % (Manual) (40-60) % Band Neutrophils % (0-10) % Lymphocytes % (Manual) (20-40) % Atypical Lymphs % % Monocytes % (Manual) (2-10) % Eosinophils % (Manual) (0.7-5.8) % Basophils % (Manual) (0.1-1.2) Platelet Estimate RBC Morph Comment Sodium 136 (136-145) mEq/L Potassium 3.0 L (3.5-5.1) mEq/L Chloride 101 (98-107) mEq/L Carbon Dioxide 23 (21-32) mEq/L Anion Gap 15.0 (5-15) BUN 8 (7-18) mg/dL Creatinine 0.8 (0.55-1.02) mg/dL Est Cr Clr Drug Dosing 106.36 mL/min Estimated GFR (MDRD) > 60 (>60) mL/min BUN/Creatinine Ratio 10.0 L (14-18) Glucose 112 H (74-106) mg/dL Calcium 8.9 (8.5-10.1) mg/dL Magnesium 2.1 (1.8-2.4) mg/dl Total Bilirubin (0.2-1.0) mg/dL AST (15-37) U/L ALT (14-59) U/L Alkaline Phosphatase (46-116) U/L C-Reactive Protein (<1.0) mg/dL Total Protein (6.4-8.2) g/dl Albumin (3.4-5.0) g/dl Globulin gm/dL Albumin/Globulin Ratio (1-2) Lipase (73-393) U/L TSH 3rd Generation (0.358-3.74) uIU/mL Urine Color (Yellow) Urine Appearance (Clear) Urine pH (5.0-8.0) Ur Specific [place] (1.005-1.030) Urine Protein (Negative) Urine Glucose (UA) (Negative) Urine Ketones (Negative) Urine Occult Blood (Negative) Urine Nitrite (Negative) Urine Bilirubin (Negative) Urine Urobilinogen (0.2-1.0) Ur Leukocyte Esterase (Negative) Urine RBC (0-5) /hpf Urine WBC (0-5) /hpf Ur Squamous Epith Cells (0-5) /hpf Urine Bacteria (FEW) /hpf Urine Mucus (FEW) /hpf Urine Opiates Screen Negative (EMZIPI=809) Ur Buprenorphine Scrn Negative (CUTOFF=10) Ur Oxycodone Screen Negative (GPF0TB=499) Urine Methadone Screen Negative (NUILKA=248) Ur Propoxyphene Screen Presumptive positive (KVNGQR=567) Ur Barbiturates Screen Negative (DBPSRC=178) Ur Tricyclics Screen Negative (VZTNPH=004) Ur Phencyclidine Scrn Negative (CUTOFF=25) Ur Amphetamine Screen Negative (IXWBKE=159) U Methamphetamines Scrn Negative (FMMETH=316) U Benzodiazepines Scrn Negative (KLCWMM=831) U Cocaine Metab Screen Negative (RDKXLK=826) U Marijuana (THC) Screen Presumptive positive H (CUTOFF=50) Result Diagrams: 12/18/18 08:40 12/18/18 08:40 Imaging Impressions Last 24 hrs: Chest: Two views of the chest were obtained. Comparison: Prior [place] chest x-ray of 05/15/18. Heart size and mediastinum are normal. Lungs are clear. Bony structures appear within normal limits for the patient's age. Impression: 1. Nothing acute is appreciated on two-view chest x-ray. Diagnostic code #1 Dictated by: Ruiz Pride MD 12/18/18 at 0650 Consult PN Assessment/Plan Procedures: Procedures ASSAY OF LIPASE (05/13/18) ASSAY OF MAGNESIUM (03/23/18) BL SMEAR W/DIFF WBC COUNT (03/23/18) COMPLETE CBC AUTOMATED (03/23/18) COMPLETE CBC W/AUTO DIFF WBC (05/13/18) COMPREHEN METABOLIC PANEL (05/13/18) CT ABD & PELV W/CONTRAST (05/13/18) DETECT AGENT NOS DNA AMP (03/23/18) EMERGENCY DEPT VISIT (05/13/18) EMERGENCY DEPT VISIT (03/23/18) HPYLORI STOOL IA (05/22/18) HYDRATE IV INFUSION ADD-ON (05/13/18) LEUKOCYTE ASSESSMENT FECAL (03/23/18) ROTAVIRUS AG IA (03/23/18) ROUTINE VENIPUNCTURE (05/13/18) STOOL CULTR AEROBIC BACT EA (03/23/18) THER/PROPH/DIAG INJ IV PUSH (03/23/18) THER/PROPH/DIAG INJ SC/IM (05/13/18) THER/PROPH/DIAG IV INF INIT (05/13/18) TX/PRO/DX INJ NEW DRUG ADDON (05/13/18) TX/PRO/DX INJ SAME DRUG DIRECTOR OF DONOR RELATIONS (05/13/18) URINALYSIS AUTO W/SCOPE (05/13/18) URINE TEST (05/13/18) X-RAY EXAM ABDOMEN 1 VIEW (05/13/18) (1) Nausea and vomiting SNOMED Code(s): 26807442 Code(s): R11.2 - NAUSEA WITH VOMITING, UNSPECIFIED Priority: High Current Visit: Yes Qualifiers: Vomiting type: unspecified Vomiting Intractability: non-intractable Qualified Code(s): R11.2 - Nausea with vomiting, unspecified (2) Abdominal pain SNOMED Code(s): 62797855 Code(s): R10.9 - UNSPECIFIED ABDOMINAL PAIN Priority: High Current Visit : No Qualifiers: Abdominal location: epigastric Qualified Code(s): R10.13 - Epigastric pain Problem List Initiated/Reviewed/Updated: Yes My Orders Last 24 Hours: My Active Orders 12/19/18 09:30 Schedule Procedure [COMM] Routine Plan: 23 yo female, s/p prior lap cholecystectomy, presents with persistent abdominal pain, nausea/emesis, with recent work-up performed at [facility]. No concern for surgical abdomen. WBC normal. - Will obtain records from [facility] to further clarify previously performed work-up, including CT abdomen/pelvis. - Patient was consented for EGD with possible biopsy, which will be performed tomorrow. Indications, risks, and benefits were discussed. Risks including bleeding, infection, damage to the GI tract, and need for additional procedures. - Explained to patient that this procedure will help rule out certain disease process, but may not be able to definitively identify the source of her symptoms. - Agree with continued NPO and IV fluids, anti-emetics, and H2 teresita. Surgery will continue to follow. Grady Rooney M.D (Siri)., F.A.C.S. General Surgery
[2018-12-18] MEDS: Promethazine 25 MG in Sodium Chloride 0.9% 50 ML IV PRN (21:14)
[2018-12-19] MEDS: Promethazine 25 MG in Sodium Chloride 0.9% 50 ML IV PRN ×2 (00:55→08:17)
[2018-12-19] MEDS: Lactated Ringers 1,000 ML IV SCH ×2 (01:30→08:23)
[2018-12-19] MEDS: ONDANSETRON IV SCH ×4 (02:41→15:41)
[2018-12-19] MEDS: SODIUM CHLORIDE 0.9% IV SCH ×4 (02:41→15:41)
[2018-12-19] MEDS: Famotidine 20 MG/2 ML SDV IVPUSH SCH (08:17)
--- NOTE | 2018-12-19 09:26 | PCM.PREANE ---
Preanesthetic Assessment - Anesthesia/Transfusion/Family Hx Anesthesia History: Prior Anesthesia Without Reaction Family History of Anesthesia Reaction: No Transfusion History: No Prior Transfusion(s) - Review of Systems General: Fatigue, Other (nausea under the weather) Pulmonary: No Symptoms Cardiovascular: Chest Pain, Dyspnea on Exertion Gastrointestinal: Abdominal Pain, Diarrhea, Nausea, Vomiting Neurological: No Symptoms Other: Reports: None - Physical Assessment NPO Status Date: 12/18/18 NPO Status Time: 00:00 Pulse: 68 O2 Sat by Pulse Oximetry: 100 Respiratory Rate: 15 Blood Pressure: 169/100 Temperature: 36.6 C Vital Signs: Last Vital Signs Temp 36.6 C 12/19/18 07:45 Pulse 68 12/19/18 07:45 Resp 15 12/19/18 07:45 BP 169/100 H 12/19/18 07:45 Pulse Ox 100 12/19/18 07:45 Height: 1.7 m Weight: 97.069 kg ASA Class: 2 Mental Status: Alert & Oriented x3 Airway Class: Mallampati = 1 Dentition: Reports: Normal Dentition Thyro-Mental Finger Breadths: 3 Mouth Opening Finger Breadths: 3 ROM/Head Extension: Full Lungs: Clear to Auscultation, Normal Respiratory Effort Cardiovascular: Regular Rate, Regular Rhythm - Lab Values: Laboratory Last Values WBC 12.70 K/mm3 (3.98-10.04) H 12/19/18 04:40 RBC 4.86 M/mm3 (3.98-5.22) 12/19/18 04:40 Hgb 13.3 gm/L (11.2-15.7) 12/19/18 04:40 Hct 39.8 % (34.1-44.9) 12/19/18 04:40 MCV 81.9 fl (79.4-94.8) 12/19/18 04:40 MCH 27.4 pg (25.6-32.2) 12/19/18 04:40 MCHC 33.4 g/dl (32.2-35.5) 12/19/18 04:40 RDW Std Deviation 42.8 fL (36.4-46.3) 12/19/18 04:40 Plt Count 267 K/mm3 (182-369) 12/19/18 04:40 MPV 10.6 fl (9.4-12.3) 12/19/18 04:40 Neut % (Auto) 68.6 % (34.0-71.1) 12/19/18 04:40 Lymph % (Auto) 22.0 % (19.3-51.7) 12/19/18 04:40 Bonner % (Auto) 8.8 % (4.7-12.5) 12/19/18 04:40 Eos % (Auto) 0.2 (0.7-5.8) L 12/19/18 04:40 Baso % (Auto) 0.1 % (0.1-1.2) 12/19/18 04:40 Neut # (Auto) 8.70 K/mm3 (1.56-6.13) H 12/19/18 04:40 Lymph # (Auto) 2.80 K/mm3 (1.18-3.74) 12/19/18 04:40 Bonner # (Auto) 1.12 K/mm3 (0.24-0.36) H 12/19/18 04:40 Eos # (Auto) 0.03 K/mm3 (0.04-0.36) L 12/19/18 04:40 Baso # (Auto) 0.01 K/mm3 (0.01-0.08) 12/19/18 04:40 Neutrophils % (Manual) 70 % (40-60) H 12/17/18 19:23 Band Neutrophils % 0 % (0-10) 12/17/18 19:23 Lymphocytes % (Manual) 23 % (20-40) 12/17/18 19:23 Atypical Lymphs % 0 % 12/17/18 19:23 Monocytes % (Manual) 7 % (2-10) 12/17/18 19:23 Eosinophils % (Manual) 0 % (0.7-5.8) L 12/17/18 19:23 Basophils % (Manual) 0 (0.1-1.2) L 12/17/18 19:23 Platelet Estimate Adequate 12/17/18 19:23 RBC Morph Comment Normal 12/17/18 19:23 Sodium 136 mEq/L (136-145) 12/19/18 04:40 Potassium 3.7 mEq/L (3.5-5.1) 12/19/18 04:40 Chloride 99 mEq/L (98-107) 12/19/18 04:40 Carbon Dioxide 25 mEq/L (21-32) 12/19/18 04:40 Anion Gap 15.7 (5-15) H 12/19/18 04:40 BUN 8 mg/dL (7-18) 12/19/18 04:40 Creatinine 0.9 mg/dL (0.55-1.02) 12/19/18 04:40 Est Cr Clr Drug Dosing 94.54 mL/min 12/19/18 04:40 Estimated GFR (MDRD) > 60 mL/min (>60) 12/19/18 04:40 BUN/Creatinine Ratio 8.9 (14-18) L 12/19/18 04:40 Glucose 93 mg/dL (74-106) 12/19/18 04:40 Calcium 9.2 mg/dL (8.5-10.1) 12/19/18 04:40 Phosphorus 4.3 mg/dL (2.6-4.7) 12/19/18 04:40 Magnesium 2.1 mg/dl (1.8-2.4) 12/19/18 04:40 Total Bilirubin 0.6 mg/dL (0.2-1.0) 12/19/18 04:40 AST 13 U/L (15-37) L 12/19/18 04:40 ALT 21 U/L (14-59) 12/19/18 04:40 Alkaline Phosphatase 56 U/L (46-116) 12/19/18 04:40 C-Reactive Protein 0.2 mg/dL (<1.0) 12/17/18 19:23 Total Protein 7.8 g/dl (6.4-8.2) 12/19/18 04:40 Albumin 4.1 g/dl (3.4-5.0) 12/19/18 04:40 Globulin 3.7 gm/dL 12/19/18 04:40 Albumin/Globulin Ratio 1.1 (1-2) 12/19/18 04:40 Lipase 120 U/L (73-393) 12/19/18 04:40 TSH 3rd Generation 0.811 uIU/mL (0.358-3.74) 12/17/18 19:23 Urine Color Dark yellow (Yellow) 12/17/18 19:32 Urine Appearance Clear (Clear) 12/17/18 19:32 Urine pH 7.0 (5.0-8.0) 12/17/18 19:32 Ur Specific [place] 1.020 (1.005-1.030) 12/17/18 19:32 Urine Protein 2+ (Negative) H 12/17/18 19:32 Urine Glucose (UA) Negative (Negative) 12/17/18 19:32 Urine Ketones 3+ (Negative) H 12/17/18 19:32 Urine Occult Blood Negative (Negative) 12/17/18 19: Urine Nitrite Negative (Negative) 12/17/18 19:32 Urine Bilirubin 1+ (Negative) H 12/17/18 19:32 Urine Urobilinogen 1.0 (0.2-1.0) 12/17/18 19:32 Ur Leukocyte Esterase Negative (Negative) 12/17/18 19:32 Urine RBC 0-5 /hpf (0-5) 12/17/18 19:32 Urine WBC 0-5 /hpf (0-5) 12/17/18 19:32 Ur Squamous Epith Cells 0-5 /hpf (0-5) 12/17/18 19:32 Urine Bacteria Few /hpf (FEW) 12/17/18 19:32 Urine Mucus Few /hpf (FEW) 12/17/18 19:32 Urine Opiates Screen Negative (EJJBJN=811) 12/17/18 19:32 Ur Buprenorphine Scrn Negative (CUTOFF=10) 12/17/18 19:32 Ur Oxycodone Screen Negative (KDB0BW=971) 12/17/18 19:32 Urine Methadone Screen Negative (XPPNZB=335) 12/17/18 19:32 Ur Propoxyphene Screen Presumptive positive (EVGXYP=905) 12/17/18 19:32 Ur Barbiturates Screen Negative (ZVGSDX=121) 12/17/18 19:32 Ur Tricyclics Screen Negative (JZYVBI=740) 12/17/18 19:32 Ur Phencyclidine Scrn Negative (CUTOFF=25) 12/17/18 19:32 Ur Amphetamine Screen Negative (PXLCFG=964) 12/17/18 19:32 U Methamphetamines Scrn Negative (YQGBXP=686) 12/17/18 19:32 U Benzodiazepines Scrn Negative (AFTIZV=980) 12/17/18 19:32 U Cocaine Metab Screen Negative (LLAAMQ=410) 12/17/18 19:32 U Marijuana (THC) Screen Presumptive positive (CUTOFF=50) H 12/17/18 19:32 - Imaging/EKG Impressions: on chart - Allergies Allergies/Adverse Reactions: Allergies Allergy/AdvReac Type Severity Reaction Status Date / Time cheese Allergy unknown Verified 12/17/18 18:24 gluten Allergy unknown Verified 12/17/18 18:24 mold Allergy unknown Verified 12/17/18 18:24 Penicillins Allergy Hives Verified 12/17/18 18:24 - Blood Blood Available: No Product(s) Available: None - Anesthesia Plan Pre-Op Medication Ordered: None - Acknowledgements Anesthesia Type Planned: MAC Pt an Appropriate Candidate for the Planned Anesthesia: Yes Alternatives and Risks of Anesthesia Discussed w Pt/Guardian: Yes Pt/Guardian Understands and Agrees with Anesthesia Plan: Yes PreAnesthesia Questionnaire - Past Health History Medical/Surgical History: Denies Medical/Surgical History HEENT History: Reports: None Cardiovascular History: Reports: None Respiratory History: Reports: Asthma Gastrointestinal History: Reports: None Genitourinary History: Reports: None WARD NURSE History: Reports: None Musculoskeletal History: Reports: Back Pain, Chronic Neurological History: Reports: None Psychiatric History: Reports: None Endocrine/Metabolic History: Reports: Obesity/BMI 30+ Hematologic History: Reports: None Immunologic History: Reports: None Oncologic (Cancer) History: Reports: None Dermatologic History: Reports: None - Infectious Disease History Infectious Disease History: Reports: Chicken Pox - Past Surgical History HEENT Surgical History: Reports: Adenoidectomy, Myringotomy w Tube(s), Tonsillectomy Cardiovascular Surgical History: Reports: None Respiratory Surgical History: Reports: None GI Surgical History: Reports: Cholecystectomy (Lap oh (Jul 2018).) Endocrine Surgical History: Reports: None Musculoskeletal Surgical History: Reports: None - SUBSTANCE USE Smoking Status *Q: Never Smoker Tobacco Use Within Last Twelve Months: No Second Hand Smoke Exposure: No Days Per Week of Alcohol Use: 0 Number of Drinks Per Day: 0 Total Drinks Per Week: 0 Recreational Drug Use History: Yes Recreational Drug Type: Reports: Marijuana/Hashish (Quit use 2 weeks ago.) - HOME MEDS Home Medications: Home Meds . [No Known Home Meds] 12/12/18 [History] - CURRENT (IN HOUSE) MEDS Current Meds: Current Medications Famotidine (Pepcid) 20 mg IVPUSH BID [facility] Last Admin: 12/19/18 08:17 Dose: 20 mg Lactated Ringer's (Ringers, Lactated) 1,000 mls @ 150 mls/hr IV ASDIRECTED MARIBELL Last Admin: 12/19/18 08:23 Dose: 150 mls/hr Ondansetron HCl 6 mg/ Sodium (Chloride) 53 mls @ 212 mls/hr IV Q4H [facility] Last Admin: 12/19/18 06:34 Dose: 212 mls/hr Promethazine HCl 25 mg/ Sodium (Chloride) 51 mls @ 100 mls/hr IV Q4H PRN PRN Reason: Nausea/Vomiting Last Admin: 12/19/18 08:17 Dose: 100 mls/hr Miscellaneous Information (Remove Patch) 1 ea TRDERM Q72H [facility] Ondansetron HCl (Zofran) 4 mg IVPUSH Q2HR PRN PRN Reason: Nausea/Vomiting Last Admin: 12/18/18 19:21 Dose: 4 mg Sodium Chloride (Saline Flush) 10 ml FLUSH ASDIRECTED PRN PRN Reason: Keep Vein Open Last Admin: 12/17/18 19:23 Dose: 10 ml Discontinued Medications Dexamethasone (Dexamethasone) 10 mg IVPUSH ONETIME ONE Stop: 12/18/18 10:21 Last Admin: 12/18/18 10:51 Dose: 10 mg Diphenhydramine HCl (Benadryl) 50 mg IVPUSH ONETIME ONE Stop: 12/17/18 19:07 Last Admin: 12/17/18 19:24 Dose: Not Given Famotidine (Pepcid) 20 mg IVPUSH ONETIME ONE Stop: 12/17/18 19:14 Last Admin: 12/17/18 19:23 Dose: 20 mg Lactated Ringer's (Ringers, Lactated) 1,000 mls @ 999 mls/hr IV .BOLUS ONE Stop: 12/17/18 20:06 Last Admin: 12/17/18 19:20 Dose: 999 mls/hr Promethazine HCl 25 mg/ Sodium (Chloride) 51 mls @ 100 mls/hr IV ONETIME ONE Stop: 12/17/18 19:36 Last Admin: 12/17/18 19:24 Dose: 100 mls/hr Potassium Chloride 10 meq/ (Premix) 100 mls @ 100 mls/hr IV ASDIRECTED [facility] Last Admin: 12/17/18 20:39 Dose: 100 mls/hr Lactated Ringer's (Ringers, Lactated) 1,000 mls @ 999 mls/hr IV .BOLUS ONE Stop: 12/17/18 22:21 Last Admin: 12/17/18 21:40 Dose: 999 mls/hr Potassium Chloride 10 meq/ (Premix) 100 mls @ 100 mls/hr IV Q2H [facility] Stop: 12/18/18 04:59 Last Admin: 12/18/18 04:03 Dose: Not Given Potassium Chloride 10 meq/ (Premix) 100 mls @ 100 mls/hr IV ONETIME ONE Stop: 12/18/18 12:29 Last Admin: 12/18/18 11:27 Dose: 100 mls/hr Potassium Chloride 10 meq/ (Premix) 100 mls @ 100 mls/hr IV Q1H [facility] Stop: 12/18/18 15:44 Last Admin: 12/18/18 15:39 Dose: 75 mls/hr Metoclopramide HCl (Reglan) 7.5 mg IVPUSH ONETIME ONE Stop: 12/17/18 22:01 Last Admin: 12/17/18 22:04 Dose: 7.5 mg Metoclopramide HCl (Reglan) 7.5 mg IVPUSH Q6H PRN PRN Reason: Nausea/Vomiting Last Admin: 12/18/18 04:03 Dose: 7.5 mg Ondansetron HCl (Zofran) 4 mg IVPUSH Q4H PRN PRN Reason: Nausea/Vomiting Last Admin: 12/18/18 06:52 Dose: 4 mg Ondansetron HCl (Zofran) 4 mg IVPUSH Q4H [facility] Last Admin: 12/18/18 11:26 Dose: Not Given Potassium Chloride (Potassium Chloride) 40 meq IV ONETIME ONE Stop: 12/18/18 11:31 Scopolamine (Transderm-Scop) 1.5 mg TRDERM Q72H PRN PRN Reason: Nausea/Vomiting Last Admin: 12/18/18 06:50 Dose: 1.5 mg
[2018-12-19] MEDS ORDERED: Lactated Ringers 1,000 ML ONE (09:37)
[2018-12-19] MEDS ORDERED: Propofol 200 MG/20 ML SDV ONE ×2 (09:38→09:46)
[2018-12-19] MEDS ORDERED: Lidocaine 1% 4 ML ONE (09:38)
[2018-12-19] MEDS ORDERED: Midazolam 1 MG/ML 2 ML SDV ONE (09:38)
--- NOTE | 2018-12-19 10:19 | PCM.CONSN ---
- General Info Date of Service: 12/19/18 Admission Dx/Problem (Free Text): Admission Diagnosis/Problem Admission Diagnosis/Problem abdominal pain, nausea/emesis Subjective Update: Patient continues to have abdominal pain, nausea/emesis. Symptoms not changed from yesterday. - Patient Data Vitals - Most Recent: Last Vital Signs Temp 36.6 C 12/19/18 09:26 Pulse 68 12/19/18 09:26 Resp 15 12/19/18 09:26 BP 169/100 H 12/19/18 09:26 Pulse Ox 100 12/19/18 09:26 Weight - Most Recent: 97.069 kg I&O - Last 24 Hours: Intake & Output 12/18/18 12/19/18 12/19/18 22:59 06:59 14:59 Intake Total 833 1821 Output Total 1700 1600 Balance -867 221 Lab Results Last 24 Hours: Laboratory Results - last 24 hr 12/19/18 12/19/18 12/19/18 Range/Units 04:40 04:40 04:40 WBC 12.70 H (3.98-10.04) K/mm3 RBC 4.86 (3.98-5.22) M/mm3 Hgb 13.3 (11.2-15.7) gm/L Hct 39.8 (34.1-44.9) % MCV 81.9 (79.4-94.8) fl MCH 27.4 (25.6-32.2) pg MCHC 33.4 (32.2-35.5) g/dl RDW Std Deviation 42.8 (36.4-46.3) fL Plt Count 267 (182-369) K/mm3 MPV 10.6 (9.4-12.3) fl Neut % (Auto) 68.6 (34.0-71.1) % Lymph % (Auto) 22.0 (19.3-51.7) % [place] % (Auto) 8.8 (4.7-12.5) % Eos % (Auto) 0.2 L (0.7-5.8) Baso % (Auto) 0.1 (0.1-1.2) % Neut # (Auto) 8.70 H (1.56-6.13) K/mm3 Lymph # (Auto) 2.80 (1.18-3.74) K/mm3 [place] # (Auto) 1.12 H (0.24-0.36) K/mm3 Eos # (Auto) 0.03 L (0.04-0.36) K/mm3 Baso # (Auto) 0.01 (0.01-0.08) K/mm3 Sodium 136 (136-145) mEq/L Potassium 3.7 (3.5-5.1) mEq/L Chloride 99 (98-107) mEq/L Carbon Dioxide 25 (21-32) mEq/L Anion Gap 15.7 H (5-15) BUN 8 (7-18) mg/dL Creatinine 0.9 (0.55-1.02) mg/dL Est Cr Clr Drug Dosing 94.54 mL/min Estimated GFR (MDRD) > 60 (>60) mL/min BUN/Creatinine Ratio 8.9 L (14-18) Glucose 93 (74-106) mg/dL Calcium 9.2 (8.5-10.1) mg/dL Phosphorus 4.3 (2.6-4.7) mg/dL Magnesium 2.1 (1.8-2.4) mg/dl Total Bilirubin 0.6 (0.2-1.0) mg/dL AST 13 L (15-37) U/L ALT 21 (14-59) U/L Alkaline Phosphatase 56 (46-116) U/L Total Protein 7.8 (6.4-8.2) g/dl Albumin 4.1 (3.4-5.0) g/dl Globulin 3.7 gm/dL Albumin/Globulin Ratio 1.1 (1-2) Lipase 120 (73-393) U/L Med Orders - Current: Current Medications Famotidine (Pepcid) 20 mg IVPUSH BID [facility] Last Admin: 12/19/18 08:17 Dose: 20 mg Lactated Ringer's (Ringers, Lactated) 1,000 mls @ 150 mls/hr IV ASDIRECTED [facility] Last Admin: 12/19/18 08:23 Dose: 150 mls/hr Ondansetron HCl 6 mg/ Sodium (Chloride) 53 mls @ 212 mls/hr IV Q4H [facility] Last Admin: 12/19/18 06:34 Dose: 212 mls/hr Promethazine HCl 25 mg/ Sodium (Chloride) 51 mls @ 100 mls/hr IV Q4H PRN PRN Reason: Nausea/Vomiting Last Admin: 12/19/18 08:17 Dose: 100 mls/hr Miscellaneous Information (Remove Patch) 1 ea TRDERM Q72H [facility] Ondansetron HCl (Zofran) 4 mg IVPUSH Q2HR PRN PRN Reason: Nausea/Vomiting Last Admin: 12/18/18 19:21 Dose: 4 mg Sodium Chloride (Saline Flush) 10 ml FLUSH ASDIRECTED PRN PRN Reason: Keep Vein Open Last Admin: 12/17/18 19:23 Dose: 10 ml Discontinued Medications Dexamethasone (Dexamethasone) 10 mg IVPUSH ONETIME ONE Stop: 12/18/18 10:21 Last Admin: 12/18/18 10:51 Dose: 10 mg Diphenhydramine HCl (Benadryl) 50 mg IVPUSH ONETIME ONE Stop: 12/17/18 19:07 Last Admin: 12/17/18 19:24 Dose: Not Given Famotidine (Pepcid) 20 mg IVPUSH ONETIME ONE Stop: 12/17/18 19:14 Last Admin: 12/17/18 19:23 Dose: 20 mg Lactated Ringer's (Ringers, Lactated) 1,000 mls @ 999 mls/hr IV .BOLUS ONE Stop: 12/17/18 20:06 Last Admin: 12/17/18 19:20 Dose: 999 mls/hr Promethazine HCl 25 mg/ Sodium (Chloride) 51 mls @ 100 mls/hr IV ONETIME ONE Stop: 12/17/18 19:36 Last Admin: 12/17/18 19:24 Dose: 100 mls/hr Potassium Chloride 10 meq/ (Premix) 100 mls @ 100 mls/hr IV ASDIRECTED [facility] Last Admin: 12/17/18 20:39 Dose: 100 mls/hr Lactated Ringer's (Ringers, Lactated) 1,000 mls @ 999 mls/hr IV .BOLUS ONE Stop: 12/17/18 22:21 Last Admin: 12/17/18 21:40 Dose: 999 mls/hr Potassium Chloride 10 meq/ (Premix) 100 mls @ 100 mls/hr IV Q2H [facility] Stop: 12/18/18 04:59 Last Admin: 12/18/18 04:03 Dose: Not Given Potassium Chloride 10 meq/ (Premix) 100 mls @ 100 mls/hr IV ONETIME ONE Stop: 12/18/18 12:29 Last Admin: 12/18/18 11:27 Dose: 100 mls/hr Potassium Chloride 10 meq/ (Premix) 100 mls @ 100 mls/hr IV Q1H [facility] Stop: 12/18/18 15:44 Last Admin: 12/18/18 15:39 Dose: 75 mls/hr Lactated Ringer's (Ringers, Lactated) Confirm Administered Dose 1,000 mls @ as directed .ROUTE .STK-MED ONE Stop: 12/19/18 09:38 Lidocaine HCl (Xylocaine-Mpf 1%) Confirm Administered Dose 4 mls @ as directed .ROUTE .STK-MED ONE Stop: 12/19/18 09:39 Metoclopramide HCl (Reglan) 7.5 mg IVPUSH ONETIME ONE Stop: 12/17/18 22:01 Last Admin: 12/17/18 22:04 Dose: 7.5 mg Metoclopramide HCl (Reglan) 7.5 mg IVPUSH Q6H PRN PRN Reason: Nausea/Vomiting Last Admin: 12/18/18 04:03 Dose: 7.5 mg Midazolam HCl (Versed 1 Mg/Ml) Confirm Administered Dose 2 mg .ROUTE .STK-MED ONE Stop: 12/19/18 09:39 Ondansetron HCl (Zofran) 4 mg IVPUSH Q4H PRN PRN Reason: Nausea/Vomiting Last Admin: 12/18/18 06:52 Dose: 4 mg Ondansetron HCl (Zofran) 4 mg IVPUSH Q4H [facility] Last Admin: 12/18/18 11:26 Dose: Not Given Potassium Chloride (Potassium Chloride) 40 meq IV ONETIME ONE Stop: 12/18/18 11:31 Propofol (Diprivan 20 Ml) Confirm Administered Dose 200 mg .ROUTE .STK-MED ONE Stop: 12/19/18 09:39 Propofol (Diprivan 20 Ml) Confirm Administered Dose 200 mg .ROUTE .STK-MED ONE Stop: 12/19/18 09:47 Scopolamine (Transderm-Scop) 1.5 mg TRDERM Q72H PRN PRN Reason: Nausea/Vomiting Last Admin: 12/18/18 06:50 Dose: 1.5 mg - Exam General: Alert, Oriented, Cooperative Consult PN Assessment/Plan Procedures: Procedures ASSAY OF LIPASE (12/14/18) ASSAY OF MAGNESIUM (12/14/18) BL SMEAR W/DIFF WBC COUNT (12/14/18) COMPLETE CBC AUTOMATED (12/14/18) COMPLETE CBC W/AUTO DIFF WBC (05/13/18) COMPREHEN METABOLIC PANEL (12/14/18) CT ABD & PELV W/CONTRAST (05/13/18) DETECT AGENT NOS DNA AMP (03/23/18) DRUG TEST PRSMV INSTRMNT (12/14/18) EMERGENCY DEPT VISIT (12/14/18) EMERGENCY DEPT VISIT (05/13/18) EMERGENCY DEPT VISIT (03/23/18) HPYLORI STOOL IA (05/22/18) HYDRATE IV INFUSION ADD-ON (12/14/18) LEUKOCYTE ASSESSMENT FECAL (03/23/18) ROTAVIRUS AG IA (03/23/18) ROUTINE VENIPUNCTURE (12/14/18) STOOL CULTR AEROBIC BACT EA (03/23/18) THER/PROPH/DIAG INJ IV PUSH (03/23/18) THER/PROPH/DIAG INJ SC/IM (12/14/18) THER/PROPH/DIAG IV INF INIT (12/14/18) TX/PRO/DX INJ NEW DRUG ADDON (12/14/18) TX/PRO/DX INJ SAME DRUG SOFTWARE DEVELOPER CONSULTANT (05/13/18) URINALYSIS AUTO W/SCOPE (12/14/18) URINE TEST (12/14/18) X-RAY EXAM ABDOMEN 1 VIEW (05/13/18) (1) Nausea and vomiting SNOMED Code(s): 95111459 Code(s): R11.2 - NAUSEA WITH VOMITING, UNSPECIFIED Priority: High Current Visit: Yes Qualifiers: Vomiting type: unspecified Vomiting Intractability: non-intractable Qualified Code(s): R11.2 - Nausea with vomiting, unspecified (2) Abdominal pain SNOMED Code(s): 68674005 Code(s): R10.9 - UNSPECIFIED ABDOMINAL PAIN Priority: High Current Visit : No Qualifiers: Abdominal location: epigastric Qualified Code(s): R10.13 - Epigastric pain Problem List Initiated/Reviewed/Updated: Yes My Orders Last 24 Hours: My Active Orders 12/19/18 09:30 Schedule Procedure [COMM] Routine Plan: 23 yo female, s/p prior lap cholecystectomy, admitted HD#2 with persistent abdominal pain, nausea/emesis. - Plan for EGD with possible biopsy today. Consent obtained. - See procedure note for details. Grady Rooney M.D (Siri)., F.A.C.S. General Surgery
--- NOTE | 2018-12-19 10:21 | PCM.OPNOTE ---
- General Post-Op/Procedure Note Date of Surgery/Procedure: 12/19/18 Operative Procedure(s): esophagogastroduodenoscopy with biopsy Findings: 1) inflammation of the proximal stomach (proximal lesser curvature and fundus) 2) inflammation around the GE junction 3) Biopsies obtained of the antrum, areas of inflammation, and GE junction Primary Surgeon: Grady Rooney Anesthesia Provider: Ish Eason Pathology: 1) antrum 2) fundus 3) proximal lesser curvature 4) GE junction Complications: None Condition: Good Free Text/Narrative:: Indications for surgery: The patient is a 23 yo female, with persistent abdominal pain, nausea, and emesis. As part of her work-up, the patient was consented for esophagogastroduodenoscopy with possible biopsy. Indications, risks, and benefits were discussed. Description of procedure: After surgical consent was verified, the patient was brought to the endoscopy suite. Anesthesia inducted monitored anesthesia care. A procedural time-out was performed to verify proper patient and proper procedure. Appropriate padding and straps were placed. A bite block was placed. An endoscope was inserted through the mouth and advanced down the esophagus, into the stomach, through the pylorus, and into the 2nd portion of the duodenum. The scope was then withdrawn into the stomach. Retroflexed views of the GE junction were obtained. The scope was withdrawn through the GE junction, and the esophagus was inspected. There was evidence of mucosal inflammation, with erythema, around the proximal stomach, including the fundus and proximal lesser curvature, as well as inflammation of the GE junction. Biopsy of the gastric antrum was performed. Biopsies of the area of inflammation at the fundus and proximal lesser curvature were performed. Biopsy of the GE junction was also performed. The patient tolerated the procedure well, was brought out of anesthesia, and transported to the PACU in stable condition. I was present and scrubbed for the entirety of the case. Grady Rooney M.D., F.A.C.S. General Surgery
[2018-12-19] MEDS ORDERED: Haloperidol Lactate 5 MG/ML SDV IVPUSH ONE (10:48)
[2018-12-19] MEDS ORDERED: Lactated Ringers 1,000 ML IV SCH (11:00)
[2018-12-19] MEDS ORDERED: Citalopram 10 MG Tab PO SCH (11:45)
[2018-12-19] MEDS ORDERED: LORazepam 2 MG/ML SDV IVPUSH PRN (13:00)
[2018-12-19] MEDS: Dextrose 5%-Lactated Ringers 1,000 ML IV SCH (13:50)
[2018-12-19] MEDS: Pantoprazole 40 MG Vial IVPUSH SCH (13:50)
--- NOTE | 2018-12-19 15:32 | PCM.PN ---
- General Info Date of Service: 12/19/18 Admission Dx/Problem (Free Text): Admission Diagnosis/Problem Admission Diagnosis/Problem abdominal pain, nausea/emesis 23 yo WF with frequent N/V, weight loss, poor PO intake since 12/12/18. States that similar symptoms 6 mo ago, underwent cholecystectomy. States that has been using THC for 4 years regularly. Quit using prior to onset of the latest bout of N/V. Similar presentation 6 mo ago. Restarted using THC after that. Admitted with hypokalemia for further treatment. Left Upper Abdomen 12/19/2018, nausea marginally better, will try haloperidol and lorazepam combination. Underwent EGD: fundal and GE junction gastritis, started PPI, H.pylori serology pending. - Review of Systems Systems Review Comment:: General: Reports: Fatigue, Weight Loss. Denies: Fever, Chills HEENT: Denies: Dysphasia, Sore Throat Pulmonary: Denies: Shortness of Breath, Wheezing, Cough Cardiovascular: Denies: Chest Pain, Palpitations, Dyspnea on Exertion Gastrointestinal: Reports: Nausea, Vomiting. Denies: Hematemesis, Hematochezia , Melena Genitourinary: Denies: Dysuria, Frequency Skin: Denies: Cyanosis, Jaundice Psychiatric: Denies: Depression, Anxiety, Suicidal Ideation Neurological: Denies: Confusion, Seizure, Syncope Hematologic/Lymphatic: Denies: Easy Bleeding, Easy Bruising - Patient Data Vitals - Most Recent: Last Vital Signs Temp 98.4 F 12/19/18 11:21 Pulse 65 12/19/18 11:21 Resp 16 12/19/18 11:21 BP 149/88 H 12/19/18 11:21 Pulse Ox 100 12/19/18 11:21 Weight - Most Recent: 214 lb I&O - Last 24 Hours: Intake & Output 12/19/18 12/19/18 12/19/18 03:59 11:59 19:59 Intake Total 1821 Output Total 1600 Balance 221 Lab Results Last 24 Hours: Laboratory Results - last 24 hr 12/19/18 12/19/18 12/19/18 Range/Units 04:40 04:40 04:40 WBC 12.70 H (3.98-10.04) K/mm3 RBC 4.86 (3.98-5.22) M/mm3 Hgb 13.3 (11.2-15.7) gm/L Hct 39.8 (34.1-44.9) % MCV 81.9 (79.4-94.8) fl MCH 27.4 (25.6-32.2) pg MCHC 33.4 (32.2-35.5) g/dl RDW Std Deviation 42.8 (36.4-46.3) fL Plt Count 267 (182-369) K/mm3 MPV 10.6 (9.4-12.3) fl Neut % (Auto) 68.6 (34.0-71.1) % Lymph % (Auto) 22.0 (19.3-51.7) % [place] % (Auto) 8.8 (4.7-12.5) % Eos % (Auto) 0.2 L (0.7-5.8) Baso % (Auto) 0.1 (0.1-1.2) % Neut # (Auto) 8.70 H (1.56-6.13) K/mm3 Lymph # (Auto) 2.80 (1.18-3.74) K/mm3 [place] # (Auto) 1.12 H (0.24-0.36) K/mm3 Eos # (Auto) 0.03 L (0.04-0.36) K/mm3 Baso # (Auto) 0.01 (0.01-0.08) K/mm3 Sodium 136 (136-145) mEq/L Potassium 3.7 (3.5-5.1) mEq/L Chloride 99 (98-107) mEq/L Carbon Dioxide 25 (21-32) mEq/L Anion Gap 15.7 H (5-15) BUN 8 (7-18) mg/dL Creatinine 0.9 (0.55-1.02) mg/dL Est Cr Clr Drug Dosing 94.54 mL/min Estimated GFR (MDRD) > 60 (>60) mL/min BUN/Creatinine Ratio 8.9 L (14-18) Glucose 93 (74-106) mg/dL Calcium 9.2 (8.5-10.1) mg/dL Phosphorus 4.3 (2.6-4.7) mg/dL Magnesium 2.1 (1.8-2.4) mg/dl Total Bilirubin 0.6 (0.2-1.0) mg/dL AST 13 L (15-37) U/L ALT 21 (14-59) U/L Alkaline Phosphatase 56 (46-116) U/L Total Protein 7.8 (6.4-8.2) g/dl Albumin 4.1 (3.4-5.0) g/dl Globulin 3.7 gm/dL Albumin/Globulin Ratio 1.1 (1-2) Lipase 120 (73-393) U/L HCG, Qual (NEGATIVE) H. pylori IgG Antibody (NEGATIVE) 12/19/18 12/19/18 Range/Units 04:40 04:40 WBC (3.98-10.04) K/mm3 RBC (3.98-5.22) M/mm3 Hgb (11.2-15.7) gm/L Hct (34.1-44.9) % MCV (79.4-94.8) fl MCH (25.6-32.2) pg MCHC (32.2-35.5) g/dl RDW Std Deviation (36.4-46.3) fL Plt Count (182-369) K/mm3 MPV (9.4-12.3) fl Neut % (Auto) (34.0-71.1) % Lymph % (Auto) (19.3-51.7) % [place] % (Auto) (4.7-12.5) % Eos % (Auto) (0.7-5.8) Baso % (Auto) (0.1-1.2) % Neut # (Auto) (1.56-6.13) K/mm3 Lymph # (Auto) (1.18-3.74) K/mm3 [place] # (Auto) (0.24-0.36) K/mm3 Eos # (Auto) (0.04-0.36) K/mm3 Baso # (Auto) (0.01-0.08) K/mm3 Sodium (136-145) mEq/L Potassium (3.5-5.1) mEq/L Chloride (98-107) mEq/L Carbon Dioxide (21-32) mEq/L Anion Gap (5-15) BUN (7-18) mg/dL Creatinine (0.55-1.02) mg/dL Est Cr Clr Drug Dosing mL/min Estimated GFR (MDRD) (>60) mL/min BUN/Creatinine Ratio (14-18) Glucose (74-106) mg/dL Calcium (8.5-10.1) mg/dL Phosphorus (2.6-4.7) mg/dL Magnesium (1.8-2.4) mg/dl Total Bilirubin (0.2-1.0) mg/dL AST (15-37) U/L ALT (14-59) U/L Alkaline Phosphatase (46-116) U/L Total Protein (6.4-8.2) g/dl Albumin (3.4-5.0) g/dl Globulin gm/dL Albumin/Globulin Ratio (1-2) Lipase (73-393) U/L HCG, Qual Negative (NEGATIVE) H. pylori IgG Antibody Negative (NEGATIVE) Med Orders - Current: Current Medications Ondansetron HCl 6 mg/ Sodium (Chloride) 53 mls @ 212 mls/hr IV Q4H [facility] Last Admin: 12/19/18 11:19 Dose: Not Given Promethazine HCl 25 mg/ Sodium (Chloride) 51 mls @ 100 mls/hr IV Q4H PRN PRN Reason: Nausea/Vomiting Last Admin: 12/19/18 08:17 Dose: 100 mls/hr Dextrose/Lactated Ringer's (Dextrose 5%-Lactated Ringers) 1,000 mls @ 75 mls/ hr IV ASDIRECTED [facility] Last Admin: 12/19/18 13:50 Dose: 75 mls/hr Lorazepam (Ativan) 1 mg IVPUSH Q4H PRN PRN Reason: Anxiety Miscellaneous Information (Remove Patch) 1 ea TRDERM Q72H [facility] Ondansetron HCl (Zofran) 4 mg IVPUSH Q2HR PRN PRN Reason: Nausea/Vomiting Last Admin: 12/18/18 19:21 Dose: 4 mg Pantoprazole Sodium (Protonix Iv) 40 mg IVPUSH Q12H [facility] Last Admin: 12/19/18 13:50 Dose: 40 mg Sodium Chloride (Saline Flush) 10 ml FLUSH ASDIRECTED PRN PRN Reason: Keep Vein Open Last Admin: 12/17/18 19:23 Dose: 10 ml Discontinued Medications Citalopram Hydrobromide (Celexa) 10 mg PO DAILY [facility] Dexamethasone (Dexamethasone) 10 mg IVPUSH ONETIME ONE Stop: 12/18/18 10:21 Last Admin: 12/18/18 10:51 Dose: 10 mg Diphenhydramine HCl (Benadryl) 50 mg IVPUSH ONETIME ONE Stop: 12/17/18 19:07 Last Admin: 12/17/18 19:24 Dose: Not Given Famotidine (Pepcid) 20 mg IVPUSH ONETIME ONE Stop: 12/17/18 19:14 Last Admin: 12/17/18 19:23 Dose: 20 mg Famotidine (Pepcid) 20 mg IVPUSH BID [facility] Last Admin: 12/19/18 08:17 Dose: 20 mg Haloperidol Lactate (Haldol) 1 mg IVPUSH ONETIME ONE Stop: 12/19/18 10:49 Last Admin: 12/19/18 11:19 Dose: 1 mg Lactated Ringer's (Ringers, Lactated) 1,000 mls @ 999 mls/hr IV .BOLUS ONE Stop: 12/17/18 20:06 Last Admin: 12/17/18 19:20 Dose: 999 mls/hr Promethazine HCl 25 mg/ Sodium (Chloride) 51 mls @ 100 mls/hr IV ONETIME ONE Stop: 12/17/18 19:36 Last Admin: 12/17/18 19:24 Dose: 100 mls/hr Potassium Chloride 10 meq/ (Premix) 100 mls @ 100 mls/hr IV ASDIRECTED [facility] Last Admin: 12/17/18 20:39 Dose: 100 mls/hr Lactated Ringer's (Ringers, Lactated) 1,000 mls @ 999 mls/hr IV .BOLUS ONE Stop: 12/17/18 22:21 Last Admin: 12/17/18 21:40 Dose: 999 mls/hr Lactated Ringer's (Ringers, Lactated) 1,000 mls @ 150 mls/hr IV ASDIRECTED [facility] Last Admin: 12/19/18 08:23 Dose: 150 mls/hr Potassium Chloride 10 meq/ (Premix) 100 mls @ 100 mls/hr IV Q2H [facility] Stop: 12/18/18 04:59 Last Admin: 12/18/18 04:03 Dose: Not Given Potassium Chloride 10 meq/ (Premix) 100 mls @ 100 mls/hr IV ONETIME ONE Stop: 12/18/18 12:29 Last Admin: 12/18/18 11:27 Dose: 100 mls/hr Potassium Chloride 10 meq/ (Premix) 100 mls @ 100 mls/hr IV Q1H [facility] Stop: 12/18/18 15:44 Last Admin: 12/18/18 15:39 Dose: 75 mls/hr Lactated Ringer's (Ringers, Lactated) Confirm Administered Dose 1,000 mls @ as directed .ROUTE .STK-MED ONE Stop: 12/19/18 09:38 Lidocaine HCl (Xylocaine-Mpf 1%) Confirm Administered Dose 4 mls @ as directed .ROUTE .STK-MED ONE Stop: 12/19/18 09:39 Lactated Ringer's (Ringers, Lactated) 1,000 mls @ 75 mls/hr IV ASDIRECTED [facility] Metoclopramide HCl (Reglan) 7.5 mg IVPUSH ONETIME ONE Stop: 12/17/18 22:01 Last Admin: 12/17/18 22:04 Dose: 7.5 mg Metoclopramide HCl (Reglan) 7.5 mg IVPUSH Q6H PRN PRN Reason: Nausea/Vomiting Last Admin: 12/18/18 04:03 Dose: 7.5 mg Midazolam HCl (Versed 1 Mg/Ml) Confirm Administered Dose 2 mg .ROUTE .STK-MED ONE Stop: 12/19/18 09:39 Ondansetron HCl (Zofran) 4 mg IVPUSH Q4H PRN PRN Reason: Nausea/Vomiting Last Admin: 12/18/18 06:52 Dose: 4 mg Ondansetron HCl (Zofran) 4 mg IVPUSH Q4H [facility] Last Admin: 12/18/18 11:26 Dose: Not Given Potassium Chloride (Potassium Chloride) 40 meq IV ONETIME ONE Stop: 12/18/18 11:31 Propofol (Diprivan 20 Ml) Confirm Administered Dose 200 mg .ROUTE .STK-MED ONE Stop: 12/19/18 09:39 Propofol (Diprivan 20 Ml) Confirm Administered Dose 200 mg .ROUTE .STK-MED ONE Stop: 12/19/18 09:47 Scopolamine (Transderm-Scop) 1.5 mg TRDERM Q72H PRN PRN Reason: Nausea/Vomiting Last Admin: 12/18/18 06:50 Dose: 1.5 mg - Exam Physical Findings Comments:: General: Alert, Oriented, Cooperative HEENT: Conjunctiva Clear, Nares Patent Neck: Supple, Trachea Midline. No: Lymphadenopathy Lungs: Clear to Auscultation, Normal Respiratory Effort Cardiovascular: Regular Rate, Regular Rhythm, Normal S1, Normal S2 GI/Abdominal Exam: Normal Bowel Sounds, Soft, Non-Tender, No Organomegaly Extremities: No Pedal Edema, Normal Capillary Refill Peripheral Pulses: 2+: Dorsalis Pedis (L), Dorsalis Pedis (R) Skin: Warm, Dry, Intact Neurological: Cranial Nerves Intact, Reflexes Equal Bilateral, Strength Equal Bilateral, Normal Speech Neuro Extensive - Mental Status: Oriented x3, Memory Intact Psychiatric: No: Suicidal Ideation - Problem List & Annotations (1) Cannabis hyperemesis syndrome concurrent with and due to cannabis abuse SNOMED Code(s): 55099613304793874 Code(s): F12.188 - CANNABIS ABUSE WITH OTHER CANNABIS-INDUCED DISORDER Status: Acute Priority: High Current Visit: Yes (2) Nausea and vomiting SNOMED Code(s): 79361577 Code(s): R11.2 - NAUSEA WITH VOMITING, UNSPECIFIED Status: Acute Priority : High Current Visit: Yes Qualifiers: Vomiting type: unspecified Vomiting Intractability: non-intractable Qualified Code(s): R11.2 - Nausea with vomiting, unspecified (3) Hypokalemia SNOMED Code(s): 91352167 Code(s): E87.6 - HYPOKALEMIA Status: Acute Priority: High Current Visit : Yes (4) Abdominal pain SNOMED Code(s): 19964234 Code(s): R10.9 - UNSPECIFIED ABDOMINAL PAIN Status: Acute Priority: High Current Visit: No Qualifiers: Abdominal location: epigastric Qualified Code(s): R10.13 - Epigastric pain - Problem List Review Problem List Initiated/Reviewed/Updated: Yes - My Orders Last 24 Hours: My Active Orders 12/18/18 19:03 Ondansetron [Zofran] 4 mg IVPUSH Q2HR PRN 12/18/18 20:39 Promethazine [Phenergan] 25 mg Sodium Chloride 0.9% [Normal Saline] 50 ml IV Q4H 12/19/18 10:51 Consult to Physician [CONS] Routine 12/19/18 10:52 Notify Provider Consults [RC] ASDIRECTED 12/19/18 11:30 Pantoprazole [ProTONIX IV] 40 mg IVPUSH Q12H 12/19/18 11:34 Admission Status [Patient Status] [ADT] Routine 12/19/18 12:15 Dextrose 5%-Lactated Ringers 1,000 ml IV ASDIRECTED 12/19/18 13:00 LORazepam [Ativan] 1 mg IVPUSH Q4H PRN - Plan Plan:: 1. Trial of haloperidol and lorazepam. 2. replace electrolytes. 3. EGD: as described, started PPI, H.pylori serology pending.
[2018-12-19] MEDS ORDERED: Haloperidol Lactate 5 MG/ML SDV IVPUSH PRN (16:37)
[2018-12-19] MEDS: LORazepam 2 MG/ML SDV IVPUSH SCH ×2 (17:05→20:49)
[2018-12-20] MEDS: LORazepam 2 MG/ML SDV IVPUSH SCH ×4 (00:54→11:46)
[2018-12-20] MEDS: Dextrose 5%-Lactated Ringers 1,000 ML IV SCH ×2 (00:55→14:10)
[2018-12-20] MEDS: Pantoprazole 40 MG Vial IVPUSH SCH (00:55)
[2018-12-20] MEDS ORDERED: Potassium Chloride 20 MEQ Tab.ER PO ONE (11:30)
[2018-12-20] MEDS: Pantoprazole 40 MG Tab.CR PO SCH ×2 (11:47→21:17)
[2018-12-20] MEDS: Citalopram 20 MG Tab PO SCH (12:16)
[2018-12-20] MEDS: ClonazePAM 0.5 MG Tab PO SCH ×3 (12:16→21:17)
--- NOTE | 2018-12-20 13:13 | PCM.PN ---
- General Info Date of Service: 12/20/18 Admission Dx/Problem (Free Text): 23 yo WF with frequent N/V, weight loss, poor PO intake since 12/12/18. States that similar symptoms 6 mo ago, underwent cholecystectomy. States that has been using THC for 4 years regularly. Quit using prior to onset of the latest bout of N/V. Similar presentation 6 mo ago. Restarted using THC after that. Admitted with hypokalemia for further treatment. 12/19/2018, nausea marginally better, will try haloperidol and lorazepam combination. Underwent EGD: fundal and GE junction gastritis, started PPI, H.pylori serology pending. 12/20/18, nausea resolved with anxiolytic, started full liquid diet, will add citalopram and clonazepam for generalized anxiety. - Review of Systems Systems Review Comment:: General: Reports: Fatigue, Weight Loss. Denies: Fever, Chills HEENT: Denies: Dysphasia, Sore Throat Pulmonary: Denies: Shortness of Breath, Wheezing, Cough Cardiovascular: Denies: Chest Pain, Palpitations, Dyspnea on Exertion Gastrointestinal: Reports: Nausea, Vomiting. Denies: Hematemesis, Hematochezia , Melena Genitourinary: Denies: Dysuria, Frequency Skin: Denies: Cyanosis, Jaundice Psychiatric: Denies: Depression, Anxiety, Suicidal Ideation Neurological: Denies: Confusion, Seizure, Syncope Hematologic/Lymphatic: Denies: Easy Bleeding, Easy Bruising - Patient Data Vitals - Most Recent: Last Vital Signs Temp 98.1 F 12/20/18 07:55 Pulse 66 12/20/18 07:55 Resp 15 12/20/18 07:55 BP 136/97 H 12/20/18 07:55 Pulse Ox 100 12/20/18 07:55 Weight - Most Recent: 213 lb 6.4 oz I&O - Last 24 Hours: Intake & Output 12/20/18 12/20/18 12/20/18 03:59 11:59 19:59 Intake Total 1254 Output Total 1100 Balance 154 Lab Results Last 24 Hours: Laboratory Results - last 24 hr 12/20/18 12/20/18 12/20/18 Range/Units 05:34 05:34 05:34 WBC 7.02 (3.98-10.04) K/mm3 RBC 4.44 (3.98-5.22) M/mm3 Hgb 12.1 (11.2-15.7) gm/L Hct 36.8 (34.1-44.9) % MCV 82.9 (79.4-94.8) fl MCH 27.3 (25.6-32.2) pg MCHC 32.9 (32.2-35.5) g/dl RDW Std Deviation 42.5 (36.4-46.3) fL Plt Count 210 (182-369) K/mm3 MPV 10.8 (9.4-12.3) fl Neut % (Auto) 63.3 (34.0-71.1) % Lymph % (Auto) 26.6 (19.3-51.7) % [place] % (Auto) 9.0 (4.7-12.5) % Eos % (Auto) 0.9 (0.7-5.8) Baso % (Auto) 0.1 (0.1-1.2) % Neut # (Auto) 4.44 (1.56-6.13) K/mm3 Lymph # (Auto) 1.87 (1.18-3.74) K/mm3 [place] # (Auto) 0.63 H (0.24-0.36) K/mm3 Eos # (Auto) 0.06 (0.04-0.36) K/mm3 Baso # (Auto) 0.01 (0.01-0.08) K/mm3 Manual Slide Review Not Reportable Sodium 132 L (136-145) mEq/L Potassium 3.2 L (3.5-5.1) mEq/L Chloride 96 L (98-107) mEq/L Carbon Dioxide 25 (21-32) mEq/L Anion Gap 14.2 (5-15) BUN 10 (7-18) mg/dL Creatinine 0.8 (0.55-1.02) mg/dL Est Cr Clr Drug Dosing 106.36 mL/min Estimated GFR (MDRD) > 60 (>60) mL/min BUN/Creatinine Ratio 12.5 L (14-18) Glucose 107 H (74-106) mg/dL Calcium 8.4 L (8.5-10.1) mg/dL Magnesium 2.1 (1.8-2.4) mg/dl Med Orders - Current: Current Medications Citalopram Hydrobromide (Celexa) 20 mg PO DAILY [facility] Last Admin: 12/20/18 12:16 Dose: 20 mg Clonazepam (Klonopin) 0.5 mg PO TID [facility] Last Admin: 12/20/18 12:16 Dose: 0.5 mg Haloperidol Lactate (Haldol) 1 mg IVPUSH Q6HR PRN PRN Reason: severe nausea Dextrose/Lactated Ringer's (Dextrose 5%-Lactated Ringers) 1,000 mls @ 75 mls/ hr IV ASDIRECTED [facility] Last Admin: 12/20/18 00:55 Dose: 75 mls/hr Miscellaneous Information (Remove Patch) 1 ea TRDERM ONETIME ONE Stop: 12/21/18 07:01 Ondansetron HCl (Zofran) 4 mg IVPUSH Q8H PRN PRN Reason: Nausea Pantoprazole Sodium (Protonix) 40 mg PO Q12HR [facility] Last Admin: 12/20/18 11:47 Dose: 40 mg Sodium Chloride (Saline Flush) 10 ml FLUSH ASDIRECTED PRN PRN Reason: Keep Vein Open Last Admin: 12/17/18 19:23 Dose: 10 ml Discontinued Medications Citalopram Hydrobromide (Celexa) 10 mg PO DAILY [facility] Dexamethasone (Dexamethasone) 10 mg IVPUSH ONETIME ONE Stop: 12/18/18 10:21 Last Admin: 12/18/18 10:51 Dose: 10 mg Diphenhydramine HCl (Benadryl) 50 mg IVPUSH ONETIME ONE Stop: 12/17/18 19:07 Last Admin: 12/17/18 19:24 Dose: Not Given Famotidine (Pepcid) 20 mg IVPUSH ONETIME ONE Stop: 12/17/18 19:14 Last Admin: 12/17/18 19:23 Dose: 20 mg Famotidine (Pepcid) 20 mg IVPUSH BID [facility] Last Admin: 12/19/18 08:17 Dose: 20 mg Haloperidol Lactate (Haldol) 1 mg IVPUSH ONETIME ONE Stop: 12/19/18 10:49 Last Admin: 12/19/18 11:19 Dose: 1 mg Lactated Ringer's (Ringers, Lactated) 1,000 mls @ 999 mls/hr IV .BOLUS ONE Stop: 12/17/18 20:06 Last Admin: 12/17/18 19:20 Dose: 999 mls/hr Promethazine HCl 25 mg/ Sodium (Chloride) 51 mls @ 100 mls/hr IV ONETIME ONE Stop: 12/17/18 19:36 Last Admin: 12/17/18 19:24 Dose: 100 mls/hr Potassium Chloride 10 meq/ (Premix) 100 mls @ 100 mls/hr IV ASDIRECTED [facility] Last Admin: 12/17/18 20:39 Dose: 100 mls/hr Lactated Ringer's (Ringers, Lactated) 1,000 mls @ 999 mls/hr IV .BOLUS ONE Stop: 12/17/18 22:21 Last Admin: 12/17/18 21:40 Dose: 999 mls/hr Lactated Ringer's (Ringers, Lactated) 1,000 mls @ 150 mls/hr IV ASDIRECTED [facility] Last Admin: 12/19/18 08:23 Dose: 150 mls/hr Potassium Chloride 10 meq/ (Premix) 100 mls @ 100 mls/hr IV Q2H [facility] Stop: 12/18/18 04:59 Last Admin: 12/18/18 04:03 Dose: Not Given Ondansetron HCl 6 mg/ Sodium (Chloride) 53 mls @ 212 mls/hr IV Q4H [facility] Last Admin: 12/19/18 15:41 Dose: Not Given Potassium Chloride 10 meq/ (Premix) 100 mls @ 100 mls/hr IV ONETIME ONE Stop: 12/18/18 12:29 Last Admin: 12/18/18 11:27 Dose: 100 mls/hr Potassium Chloride 10 meq/ (Premix) 100 mls @ 100 mls/hr IV Q1H [facility] Stop: 12/18/18 15:44 Last Admin: 12/18/18 15:39 Dose: 75 mls/hr Promethazine HCl 25 mg/ Sodium (Chloride) 51 mls @ 100 mls/hr IV Q4H PRN PRN Reason: Nausea/Vomiting Last Admin: 12/19/18 08:17 Dose: 100 mls/hr Lactated Ringer's (Ringers, Lactated) Confirm Administered Dose 1,000 mls @ as directed .ROUTE .STK-MED ONE Stop: 12/19/18 09:38 Lidocaine HCl (Xylocaine-Mpf 1%) Confirm Administered Dose 4 mls @ as directed .ROUTE .STK-MED ONE Stop: 12/19/18 09:39 Lactated Ringer's (Ringers, Lactated) 1,000 mls @ 75 mls/hr IV ASDIRECTED [facility] Lorazepam (Ativan) 1 mg IVPUSH Q4H PRN PRN Reason: Anxiety Lorazepam (Ativan) 1 mg IVPUSH Q4H [facility] Last Admin: 12/20/18 11:46 Dose: 1 mg Metoclopramide HCl (Reglan) 7.5 mg IVPUSH ONETIME ONE Stop: 12/17/18 22:01 Last Admin: 12/17/18 22:04 Dose: 7.5 mg Metoclopramide HCl (Reglan) 7.5 mg IVPUSH Q6H PRN PRN Reason: Nausea/Vomiting Last Admin: 12/18/18 04:03 Dose: 7.5 mg Midazolam HCl (Versed 1 Mg/Ml) Confirm Administered Dose 2 mg .ROUTE .STK-MED ONE Stop: 12/19/18 09:39 Ondansetron HCl (Zofran) 4 mg IVPUSH Q4H PRN PRN Reason: Nausea/Vomiting Last Admin: 12/18/18 06:52 Dose: 4 mg Ondansetron HCl (Zofran) 4 mg IVPUSH Q4H [facility] Last Admin: 12/18/18 11:26 Dose: Not Given Ondansetron HCl (Zofran) 4 mg IVPUSH Q2HR PRN PRN Reason: Nausea/Vomiting Last Admin: 12/18/18 19:21 Dose: 4 mg Pantoprazole Sodium (Protonix Iv) 40 mg IVPUSH Q12H [facility] Last Admin: 12/20/18 00:55 Dose: 40 mg Potassium Chloride (Potassium Chloride) 40 meq IV ONETIME ONE Stop: 12/18/18 11:31 Potassium Chloride (Klor-Con M20) 60 meq PO ONETIME ONE Stop: 12/20/18 11:31 Last Admin: 12/20/18 11:46 Dose: 60 meq Propofol (Diprivan 20 Ml) Confirm Administered Dose 200 mg .ROUTE .STK-MED ONE Stop: 12/19/18 09:39 Propofol (Diprivan 20 Ml) Confirm Administered Dose 200 mg .ROUTE .STK-MED ONE Stop: 12/19/18 09:47 Scopolamine (Transderm-Scop) 1.5 mg TRDERM Q72H PRN PRN Reason: Nausea/Vomiting Last Admin: 12/18/18 06:50 Dose: 1.5 mg - Exam Physical Findings Comments:: General: Alert, Oriented, Cooperative HEENT: Conjunctiva Clear, Nares Patent Neck: Supple, Trachea Midline. No: Lymphadenopathy Lungs: Clear to Auscultation, Normal Respiratory Effort Cardiovascular: Regular Rate, Regular Rhythm, Normal S1, Normal S2 GI/Abdominal Exam: Normal Bowel Sounds, Soft, Non-Tender, No Organomegaly Extremities: No Pedal Edema, Normal Capillary Refill Peripheral Pulses: 2+: Dorsalis Pedis (L), Dorsalis Pedis (R) Skin: Warm, Dry, Intact Neurological: Cranial Nerves Intact, Reflexes Equal Bilateral, Strength Equal Bilateral, Normal Speech Neuro Extensive - Mental Status: Oriented x3, Memory Intact Psychiatric: No: Suicidal Ideation - Problem List & Annotations (1) Cannabis hyperemesis syndrome concurrent with and due to cannabis abuse SNOMED Code(s): 75136735463763807 Code(s): F12.188 - CANNABIS ABUSE WITH OTHER CANNABIS-INDUCED DISORDER Status: Acute Priority: High Current Visit: Yes (2) Nausea and vomiting SNOMED Code(s): 47788804 Code(s): R11.2 - NAUSEA WITH VOMITING, UNSPECIFIED Status: Acute Priority : High Current Visit: Yes Qualifiers: Vomiting type: unspecified Vomiting Intractability: non-intractable Qualified Code(s): R11.2 - Nausea with vomiting, unspecified (3) Hypokalemia SNOMED Code(s): 17569606 Code(s): E87.6 - HYPOKALEMIA Status: Acute Priority: High Current Visit : Yes (4) Abdominal pain SNOMED Code(s): 07542261 Code(s): R10.9 - UNSPECIFIED ABDOMINAL PAIN Status: Acute Priority: High Current Visit: No Qualifiers: Abdominal location: epigastric Qualified Code(s): R10.13 - Epigastric pain - Problem List Review Problem List Initiated/Reviewed/Updated: Yes - My Orders Last 24 Hours: My Active Orders 12/19/18 12:15 Dextrose 5%-Lactated Ringers 1,000 ml IV ASDIRECTED 12/19/18 15:38 Ondansetron [Zofran] 4 mg IVPUSH Q8H PRN 12/19/18 16:37 Haloperidol Lactate [Haldol] 1 mg IVPUSH Q6HR PRN 12/20/18 11:30 Pantoprazole [ProTONIX] 40 mg PO Q12HR 12/20/18 11:53 ClonazePAM [KlonoPIN] 0.5 mg PO TID 12/20/18 12:00 Citalopram [Celexa] 20 mg PO DAILY 12/20/18 15:00 Vital Signs [RC] Q6H 12/20/18 Lunch Full Liquid Diet [DIET] - Plan Plan:: 1. Responding to benzos, will change to clonazepam, add citalopram, started full liquid diet. 2. replace electrolytes. 3. EGD: as described, started PPI, H.pylori serology negative.
[2018-12-20] MEDS: Ondansetron 4 MG/2 ML SDV IVPUSH PRN (21:18)
[2018-12-21] MEDS: Dextrose 5%-Lactated Ringers 1,000 ML IV SCH (01:24)
[2018-12-21] MEDS: Ondansetron 4 MG/2 ML SDV IVPUSH PRN (06:44)
[2018-12-21] MEDS: Citalopram 20 MG Tab PO SCH (08:40)
[2018-12-21] MEDS: Pantoprazole 40 MG Tab.CR PO SCH (08:40)
[2018-12-21] MEDS: ClonazePAM 0.5 MG Tab PO SCH ×2 (08:40→14:41)
--- NOTE | 2018-12-21 11:32 | PCM.PN ---
- General Info Date of Service: 12/21/18 Admission Dx/Problem (Free Text): 23 yo WF with frequent N/V, weight loss, poor PO intake since 12/12/18. States that similar symptoms 6 mo ago, underwent cholecystectomy. States that has been using THC for 4 years regularly. Quit using prior to onset of the latest bout of N/V. Similar presentation 6 mo ago. Restarted using THC after that. Admitted with hypokalemia for further treatment. 12/19/2018, nausea marginally better, will try haloperidol and lorazepam combination. Underwent EGD: fundal and GE junction gastritis, started PPI, H.pylori serology pending. 12/20/18, nausea resolved with anxiolytic, started full liquid diet, will add citalopram and clonazepam for generalized anxiety. 12/21/18, nausea gradually improves, advance diet to full liquids. - Review of Systems Systems Review Comment:: General: Reports: Fatigue, Weight Loss. Denies: Fever, Chills HEENT: Denies: Dysphasia, Sore Throat Pulmonary: Denies: Shortness of Breath, Wheezing, Cough Cardiovascular: Denies: Chest Pain, Palpitations, Dyspnea on Exertion Gastrointestinal: Reports: Nausea, Vomiting. Denies: Hematemesis, Hematochezia , Melena Genitourinary: Denies: Dysuria, Frequency Skin: Denies: Cyanosis, Jaundice Psychiatric: Denies: Depression, Anxiety, Suicidal Ideation Neurological: Denies: Confusion, Seizure, Syncope Hematologic/Lymphatic: Denies: Easy Bleeding, Easy Bruising - Patient Data Vitals - Most Recent: Last Vital Signs Temp 98.4 F 12/21/18 08:41 Pulse 81 12/21/18 10:04 Resp 16 12/21/18 08:41 BP 128/73 12/21/18 10:04 Pulse Ox 100 12/21/18 10:04 Weight - Most Recent: 211 lb 8 oz I&O - Last 24 Hours: Intake & Output 12/20/18 12/21/18 12/21/18 19:59 03:59 11:59 Intake Total 2380 2306 Output Total 9536 912 1661 Balance 1180 -200 306 Lab Results Last 24 Hours: Laboratory Results - last 24 hr 12/21/18 12/21/18 Range/Units 06:00 06:00 Sodium 135 L (136-145) mEq/L Potassium 4.0 (3.5-5.1) mEq/L Chloride 101 (98-107) mEq/L Carbon Dioxide 25 (21-32) mEq/L Anion Gap 13.0 (5-15) BUN 6 L (7-18) mg/dL Creatinine 0.8 (0.55-1.02) mg/dL Est Cr Clr Drug Dosing 106.36 mL/min Estimated GFR (MDRD) > 60 (>60) mL/min BUN/Creatinine Ratio 7.5 L (14-18) Glucose 114 H (74-106) mg/dL Calcium 8.8 (8.5-10.1) mg/dL Phosphorus 4.6 (2.6-4.7) mg/dL Magnesium 2.0 (1.8-2.4) mg/dl Med Orders - Current: Current Medications Citalopram Hydrobromide (Celexa) 20 mg PO DAILY [facility] Last Admin: 12/21/18 08:40 Dose: 20 mg Clonazepam (Klonopin) 0.5 mg PO TID [facility] Last Admin: 12/21/18 08:40 Dose: 0.5 mg Haloperidol Lactate (Haldol) 1 mg IVPUSH Q6HR PRN PRN Reason: severe nausea Last Admin: 12/21/18 10:48 Dose: 1 mg Dextrose/Lactated Ringer's (Dextrose 5%-Lactated Ringers) 1,000 mls @ 75 mls/ hr IV ASDIRECTED [facility] Last Admin: 12/21/18 01:24 Dose: 75 mls/hr Ondansetron HCl (Zofran) 4 mg IVPUSH Q8H PRN PRN Reason: Nausea Last Admin: 12/21/18 06:44 Dose: 4 mg Pantoprazole Sodium (Protonix) 40 mg PO Q12HR [facility] Last Admin: 12/21/18 08:40 Dose: 40 mg Sodium Chloride (Saline Flush) 10 ml FLUSH ASDIRECTED PRN PRN Reason: Keep Vein Open Last Admin: 12/17/18 19:23 Dose: 10 ml Discontinued Medications Citalopram Hydrobromide (Celexa) 10 mg PO DAILY [facility] Dexamethasone (Dexamethasone) 10 mg IVPUSH ONETIME ONE Stop: 12/18/18 10:21 Last Admin: 12/18/18 10:51 Dose: 10 mg Diphenhydramine HCl (Benadryl) 50 mg IVPUSH ONETIME ONE Stop: 12/17/18 19:07 Last Admin: 12/17/18 19:24 Dose: Not Given Famotidine (Pepcid) 20 mg IVPUSH ONETIME ONE Stop: 12/17/18 19:14 Last Admin: 12/17/18 19:23 Dose: 20 mg Famotidine (Pepcid) 20 mg IVPUSH BID [facility] Last Admin: 12/19/18 08:17 Dose: 20 mg Haloperidol Lactate (Haldol) 1 mg IVPUSH ONETIME ONE Stop: 12/19/18 10:49 Last Admin: 12/19/18 11:19 Dose: 1 mg Lactated Ringer's (Ringers, Lactated) 1,000 mls @ 999 mls/hr IV .BOLUS ONE Stop: 12/17/18 20:06 Last Admin: 12/17/18 19:20 Dose: 999 mls/hr Promethazine HCl 25 mg/ Sodium (Chloride) 51 mls @ 100 mls/hr IV ONETIME ONE Stop: 12/17/18 19:36 Last Admin: 12/17/18 19:24 Dose: 100 mls/hr Potassium Chloride 10 meq/ (Premix) 100 mls @ 100 mls/hr IV ASDIRECTED [facility] Last Admin: 12/17/18 20:39 Dose: 100 mls/hr Lactated Ringer's (Ringers, Lactated) 1,000 mls @ 999 mls/hr IV .BOLUS ONE Stop: 12/17/18 22:21 Last Admin: 12/17/18 21:40 Dose: 999 mls/hr Lactated Ringer's (Ringers, Lactated) 1,000 mls @ 150 mls/hr IV ASDIRECTED [facility] Last Admin: 12/19/18 08:23 Dose: 150 mls/hr Potassium Chloride 10 meq/ (Premix) 100 mls @ 100 mls/hr IV Q2H [facility] Stop: 12/18/18 04:59 Last Admin: 12/18/18 04:03 Dose: Not Given Ondansetron HCl 6 mg/ Sodium (Chloride) 53 mls @ 212 mls/hr IV Q4H [facility] Last Admin: 12/19/18 15:41 Dose: Not Given Potassium Chloride 10 meq/ (Premix) 100 mls @ 100 mls/hr IV ONETIME ONE Stop: 12/18/18 12:29 Last Admin: 12/18/18 11:27 Dose: 100 mls/hr Potassium Chloride 10 meq/ (Premix) 100 mls @ 100 mls/hr IV Q1H [facility] Stop: 12/18/18 15:44 Last Admin: 12/18/18 15:39 Dose: 75 mls/hr Promethazine HCl 25 mg/ Sodium (Chloride) 51 mls @ 100 mls/hr IV Q4H PRN PRN Reason: Nausea/Vomiting Last Admin: 12/19/18 08:17 Dose: 100 mls/hr Lactated Ringer's (Ringers, Lactated) Confirm Administered Dose 1,000 mls @ as directed .ROUTE .STK-MED ONE Stop: 12/19/18 09:38 Lidocaine HCl (Xylocaine-Mpf 1%) Confirm Administered Dose 4 mls @ as directed .ROUTE .STK-MED ONE Stop: 12/19/18 09:39 Lactated Ringer's (Ringers, Lactated) 1,000 mls @ 75 mls/hr IV ASDIRECTED [facility] Lorazepam (Ativan) 1 mg IVPUSH Q4H PRN PRN Reason: Anxiety Lorazepam (Ativan) 1 mg IVPUSH Q4H [facility] Last Admin: 12/20/18 11:46 Dose: 1 mg Metoclopramide HCl (Reglan) 7.5 mg IVPUSH ONETIME ONE Stop: 12/17/18 22:01 Last Admin: 12/17/18 22:04 Dose: 7.5 mg Metoclopramide HCl (Reglan) 7.5 mg IVPUSH Q6H PRN PRN Reason: Nausea/Vomiting Last Admin: 12/18/18 04:03 Dose: 7.5 mg Midazolam HCl (Versed 1 Mg/Ml) Confirm Administered Dose 2 mg .ROUTE .STK-MED ONE Stop: 12/19/18 09:39 Miscellaneous Information (Remove Patch) 1 ea TRDERM ONETIME ONE Stop: 12/21/18 07:01 Last Admin: 12/21/18 06:49 Dose: Not Given Ondansetron HCl (Zofran) 4 mg IVPUSH Q4H PRN PRN Reason: Nausea/Vomiting Last Admin: 12/18/18 06:52 Dose: 4 mg Ondansetron HCl (Zofran) 4 mg IVPUSH Q4H [facility] Last Admin: 12/18/18 11:26 Dose: Not Given Ondansetron HCl (Zofran) 4 mg IVPUSH Q2HR PRN PRN Reason: Nausea/Vomiting Last Admin: 12/18/18 19:21 Dose: 4 mg Pantoprazole Sodium (Protonix Iv) 40 mg IVPUSH Q12H [facility] Last Admin: 12/20/18 00:55 Dose: 40 mg Potassium Chloride (Potassium Chloride) 40 meq IV ONETIME ONE Stop: 12/18/18 11:31 Potassium Chloride (Klor-Con M20) 60 meq PO ONETIME ONE Stop: 12/20/18 11:31 Last Admin: 12/20/18 11:46 Dose: 60 meq Propofol (Diprivan 20 Ml) Confirm Administered Dose 200 mg .ROUTE .STK-MED ONE Stop: 12/19/18 09:39 Propofol (Diprivan 20 Ml) Confirm Administered Dose 200 mg .ROUTE .STK-MED ONE Stop: 12/19/18 09:47 Scopolamine (Transderm-Scop) 1.5 mg TRDERM Q72H PRN PRN Reason: Nausea/Vomiting Last Admin: 12/18/18 06:50 Dose: 1.5 mg - Exam Physical Findings Comments:: General: Alert, Oriented, Cooperative HEENT: Conjunctiva Clear, Nares Patent Neck: Supple, Trachea Midline. No: Lymphadenopathy Lungs: Clear to Auscultation, Normal Respiratory Effort Cardiovascular: Regular Rate, Regular Rhythm, Normal S1, Normal S2 GI/Abdominal Exam: Normal Bowel Sounds, Soft, Non-Tender, No Organomegaly Extremities: No Pedal Edema, Normal Capillary Refill Peripheral Pulses: 2+: Dorsalis Pedis (L), Dorsalis Pedis (R) Skin: Warm, Dry, Intact Neurological: Cranial Nerves Intact, Reflexes Equal Bilateral, Strength Equal Bilateral, Normal Speech Neuro Extensive - Mental Status: Oriented x3, Memory Intact Psychiatric: No: Suicidal Ideation - Problem List & Annotations (1) Cannabis hyperemesis syndrome concurrent with and due to cannabis abuse SNOMED Code(s): 52625087279476125 Code(s): F12.188 - CANNABIS ABUSE WITH OTHER CANNABIS-INDUCED DISORDER Status: Acute Priority: High Current Visit: Yes (2) Nausea and vomiting SNOMED Code(s): 84907357 Code(s): R11.2 - NAUSEA WITH VOMITING, UNSPECIFIED Status: Acute Priority : High Current Visit: Yes Qualifiers: Vomiting type: unspecified Vomiting Intractability: non-intractable Qualified Code(s): R11.2 - Nausea with vomiting, unspecified (3) Hypokalemia SNOMED Code(s): 72473436 Code(s): E87.6 - HYPOKALEMIA Status: Acute Priority: High Current Visit : Yes (4) Abdominal pain SNOMED Code(s): 92250258 Code(s): R10.9 - UNSPECIFIED ABDOMINAL PAIN Status: Acute Priority: High Current Visit: No Qualifiers: Abdominal location: epigastric Qualified Code(s): R10.13 - Epigastric pain - Problem List Review Problem List Initiated/Reviewed/Updated: Yes - My Orders Last 24 Hours: My Active Orders 12/20/18 11:30 Pantoprazole [ProTONIX] 40 mg PO Q12HR 12/20/18 11:53 ClonazePAM [KlonoPIN] 0.5 mg PO TID 12/20/18 12:00 Citalopram [Celexa] 20 mg PO DAILY 12/20/18 15:00 Vital Signs [RC] Q6H 12/21/18 Lunch Regular Diet [DIET] - Plan Plan:: 1. Responding to benzos, will change to clonazepam, add citalopram, started full liquid diet. 2. replace electrolytes. 3. EGD: as described, started PPI, H.pylori serology negative.
--- NOTE | 2018-12-21 14:57 | PCM.DCSUM1 ---
Discharge Summary - Hospital Course Free Text/Narrative:: 23 yo WF with frequent N/V, weight loss, poor PO intake since 12/12/18. States that similar symptoms 6 mo ago, underwent cholecystectomy. States that has been using THC for 4 years regularly. Quit using prior to onset of the latest bout of N/V. Similar presentation 6 mo ago. Restarted using THC after that. Admitted with hypokalemia for further treatment. 12/19/2018, nausea marginally better, will try haloperidol and lorazepam combination. Underwent EGD: fundal and GE junction gastritis, started PPI, H.pylori serology pending. 12/20/18, nausea resolved with anxiolytic, started full liquid diet, will add citalopram and clonazepam for generalized anxiety. 12/21/18, nausea gradually improves, advance diet to full liquids.Discharged to self care with recommendations: -avoid THC -primary f/u within 1 week. Diagnosis: Stroke: No - Discharge Data Discharge Date: 12/21/18 Discharge Disposition: Home, Self-Care 01 Condition: Good - Discharge Diagnosis/Problem(s) (1) Cannabis hyperemesis syndrome concurrent with and due to cannabis abuse SNOMED Code(s): 14851659741692053 ICD Code: F12.188 - CANNABIS ABUSE WITH OTHER CANNABIS-INDUCED DISORDER Status: Acute Priority: High Current Visit: Yes (2) Nausea and vomiting SNOMED Code(s): 55195320 ICD Code: R11.2 - NAUSEA WITH VOMITING, UNSPECIFIED Status: Acute Priority: High Current Visit: Yes Qualifiers: Vomiting type: unspecified Vomiting Intractability: non-intractable Qualified Code(s): R11.2 - Nausea with vomiting, unspecified (3) Hypokalemia SNOMED Code(s): 99898977 ICD Code: E87.6 - HYPOKALEMIA Status: Acute Priority: High Current Visit: Yes (4) Abdominal pain SNOMED Code(s): 21020048 ICD Code: R10.9 - UNSPECIFIED ABDOMINAL PAIN Status: Acute Priority: High Current Visit: No Qualifiers: Abdominal location: epigastric Qualified Code(s): R10.13 - Epigastric pain - Patient Summary/Data Operative Procedure(s) Performed: esophagogastroduodenoscopy with biopsy Consults: Consultations 12/19/18 10:51 Consult to Physician [CONS] Routine - Discharge Plan *PRESCRIPTION DRUG MONITORING PROGRAM REVIEWED*: No *COPY OF PRESCRIPTION DRUG MONITORING REPORT IN PATIENT [facility]: No Prescriptions/Med Rec: Citalopram [Citalopram HBr] 20 mg PO DAILY #30 tablet ClonazePAM [KlonoPIN] 0.5 mg PO BID #60 tablet Pantoprazole [ProTONIX] 40 mg PO DAILY #30 tab.cr Home Medications: Home Meds Citalopram [Citalopram HBr] 20 mg PO DAILY #30 tablet 12/21/18 [Rx] ClonazePAM [KlonoPIN] 0.5 mg PO BID #60 tablet 12/21/18 [Rx] Pantoprazole [ProTONIX] 40 mg PO DAILY #30 tab.cr 12/21/18 [Rx] Patient Handouts: Cannabis Use Disorder, Supporting Someone With Substance Use Disorder, Cannabinoid Hyperemesis Syndrome Forms: ED Department Discharge Referrals: Jayla Figueroa MD [Primary Care Provider] - - Discharge Summary/Plan Comment DC Time >30 min.: No - General Info Date of Service: 12/21/18 - Review of Systems Systems Review Comment: General: Alert, Oriented, Cooperative HEENT: Conjunctiva Clear, Nares Patent Neck: Supple, Trachea Midline. No: Lymphadenopathy Lungs: Clear to Auscultation, Normal Respiratory Effort Cardiovascular: Regular Rate, Regular Rhythm, Normal S1, Normal S2 GI/Abdominal Exam: Normal Bowel Sounds, Soft, Non-Tender, No Organomegaly Extremities: No Pedal Edema, Normal Capillary Refill Peripheral Pulses: 2+: Dorsalis Pedis (L), Dorsalis Pedis (R) Skin: Warm, Dry, Intact Neurological: Cranial Nerves Intact, Reflexes Equal Bilateral, Strength Equal Bilateral, Normal Speech Neuro Extensive - Mental Status: Oriented x3, Memory Intact Psychiatric: No: Suicidal Ideation - Patient Data Vitals - Most Recent: Last Vital Signs Temp 98.4 F 12/21/18 08:41 Pulse 81 12/21/18 10:04 Resp 16 12/21/18 08:41 BP 128/73 12/21/18 10:04 Pulse Ox 100 12/21/18 10:04 Weight - Most Recent: 211 lb 8 oz I&O - Last 24 hours: Intake & Output 12/21/18 12/21/18 12/21/18 03:59 11:59 19:59 Intake Total 2306 60 Output Total 200 2000 Balance -200 306 60 Lab Results - Last 24 hrs: Laboratory Results - last 24 hr 12/21/18 12/21/18 Range/Units 06:00 06:00 Sodium 135 L (136-145) mEq/L Potassium 4.0 (3.5-5.1) mEq/L Chloride 101 (98-107) mEq/L Carbon Dioxide 25 (21-32) mEq/L Anion Gap 13.0 (5-15) BUN 6 L (7-18) mg/dL Creatinine 0.8 (0.55-1.02) mg/dL Est Cr Clr Drug Dosing 106.36 mL/min Estimated GFR (MDRD) > 60 (>60) mL/min BUN/Creatinine Ratio 7.5 L (14-18) Glucose 114 H (74-106) mg/dL Calcium 8.8 (8.5-10.1) mg/dL Phosphorus 4.6 (2.6-4.7) mg/dL Magnesium 2.0 (1.8-2.4) mg/dl Med Orders - Current: Current Medications Citalopram Hydrobromide (Celexa) 20 mg PO DAILY [facility] Last Admin: 12/21/18 08:40 Dose: 20 mg Clonazepam (Klonopin) 0.5 mg PO TID [facility] Last Admin: 12/21/18 14:41 Dose: 0.5 mg Haloperidol Lactate (Haldol) 1 mg IVPUSH Q6HR PRN PRN Reason: severe nausea Last Admin: 12/21/18 10:48 Dose: 1 mg Dextrose/Lactated Ringer's (Dextrose 5%-Lactated Ringers) 1,000 mls @ 75 mls/ hr IV ASDIRECTED [facility] Last Admin: 12/21/18 01:24 Dose: 75 mls/hr Ondansetron HCl (Zofran) 4 mg IVPUSH Q8H PRN PRN Reason: Nausea Last Admin: 12/21/18 06:44 Dose: 4 mg Pantoprazole Sodium (Protonix) 40 mg PO Q12HR [facility] Last Admin: 12/21/18 08:40 Dose: 40 mg Sodium Chloride (Saline Flush) 10 ml FLUSH ASDIRECTED PRN PRN Reason: Keep Vein Open Last Admin: 12/17/18 19:23 Dose: 10 ml Discontinued Medications Citalopram Hydrobromide (Celexa) 10 mg PO DAILY [facility] Dexamethasone (Dexamethasone) 10 mg IVPUSH ONETIME ONE Stop: 12/18/18 10:21 Last Admin: 12/18/18 10:51 Dose: 10 mg Diphenhydramine HCl (Benadryl) 50 mg IVPUSH ONETIME ONE Stop: 12/17/18 19:07 Last Admin: 12/17/18 19:24 Dose: Not Given Famotidine (Pepcid) 20 mg IVPUSH ONETIME ONE Stop: 12/17/18 19:14 Last Admin: 12/17/18 19:23 Dose: 20 mg Famotidine (Pepcid) 20 mg IVPUSH BID [facility] Last Admin: 12/19/18 08:17 Dose: 20 mg Haloperidol Lactate (Haldol) 1 mg IVPUSH ONETIME ONE Stop: 12/19/18 10:49 Last Admin: 12/19/18 11:19 Dose: 1 mg Lactated Ringer's (Ringers, Lactated) 1,000 mls @ 999 mls/hr IV .BOLUS ONE Stop: 12/17/18 20:06 Last Admin: 12/17/18 19:20 Dose: 999 mls/hr Promethazine HCl 25 mg/ Sodium (Chloride) 51 mls @ 100 mls/hr IV ONETIME ONE Stop: 12/17/18 19:36 Last Admin: 12/17/18 19:24 Dose: 100 mls/hr Potassium Chloride 10 meq/ (Premix) 100 mls @ 100 mls/hr IV ASDIRECTED [facility] Last Admin: 12/17/18 20:39 Dose: 100 mls/hr Lactated Ringer's (Ringers, Lactated) 1,000 mls @ 999 mls/hr IV .BOLUS ONE Stop: 12/17/18 22:21 Last Admin: 12/17/18 21:40 Dose: 999 mls/hr Lactated Ringer's (Ringers, Lactated) 1,000 mls @ 150 mls/hr IV ASDIRECTED [facility] Last Admin: 12/19/18 08:23 Dose: 150 mls/hr Potassium Chloride 10 meq/ (Premix) 100 mls @ 100 mls/hr IV Q2H [facility] Stop: 12/18/18 04:59 Last Admin: 12/18/18 04:03 Dose: Not Given Ondansetron HCl 6 mg/ Sodium (Chloride) 53 mls @ 212 mls/hr IV Q4H [facility] Last Admin: 12/19/18 15:41 Dose: Not Given Potassium Chloride 10 meq/ (Premix) 100 mls @ 100 mls/hr IV ONETIME ONE Stop: 12/18/18 12:29 Last Admin: 12/18/18 11:27 Dose: 100 mls/hr Potassium Chloride 10 meq/ (Premix) 100 mls @ 100 mls/hr IV Q1H [facility] Stop: 12/18/18 15:44 Last Admin: 12/18/18 15:39 Dose: 75 mls/hr Promethazine HCl 25 mg/ Sodium (Chloride) 51 mls @ 100 mls/hr IV Q4H PRN PRN Reason: Nausea/Vomiting Last Admin: 12/19/18 08:17 Dose: 100 mls/hr Lactated Ringer's (Ringers, Lactated) Confirm Administered Dose 1,000 mls @ as directed .ROUTE .STK-MED ONE Stop: 12/19/18 09:38 Lidocaine HCl (Xylocaine-Mpf 1%) Confirm Administered Dose 4 mls @ as directed .ROUTE .STK-MED ONE Stop: 12/19/18 09:39 Lactated Ringer's (Ringers, Lactated) 1,000 mls @ 75 mls/hr IV ASDIRECTED [facility] Lorazepam (Ativan) 1 mg IVPUSH Q4H PRN PRN Reason: Anxiety Lorazepam (Ativan) 1 mg IVPUSH Q4H [facility] Last Admin: 12/20/18 11:46 Dose: 1 mg Metoclopramide HCl (Reglan) 7.5 mg IVPUSH ONETIME ONE Stop: 12/17/18 22:01 Last Admin: 12/17/18 22:04 Dose: 7.5 mg Metoclopramide HCl (Reglan) 7.5 mg IVPUSH Q6H PRN PRN Reason: Nausea/Vomiting Last Admin: 12/18/18 04:03 Dose: 7.5 mg Midazolam HCl (Versed 1 Mg/Ml) Confirm Administered Dose 2 mg .ROUTE .STK-MED ONE Stop: 12/19/18 09:39 Miscellaneous Information (Remove Patch) 1 ea TRDERM ONETIME ONE Stop: 12/21/18 07:01 Last Admin: 12/21/18 06:49 Dose: Not Given Ondansetron HCl (Zofran) 4 mg IVPUSH Q4H PRN PRN Reason: Nausea/Vomiting Last Admin: 12/18/18 06:52 Dose: 4 mg Ondansetron HCl (Zofran) 4 mg IVPUSH Q4H [facility] Last Admin: 12/18/18 11:26 Dose: Not Given Ondansetron HCl (Zofran) 4 mg IVPUSH Q2HR PRN PRN Reason: Nausea/Vomiting Last Admin: 12/18/18 19:21 Dose: 4 mg Pantoprazole Sodium (Protonix Iv) 40 mg IVPUSH Q12H [facility] Last Admin: 12/20/18 00:55 Dose: 40 mg Potassium Chloride (Potassium Chloride) 40 meq IV ONETIME ONE Stop: 12/18/18 11:31 Potassium Chloride (Klor-Con M20) 60 meq PO ONETIME ONE Stop: 12/20/18 11:31 Last Admin: 12/20/18 11:46 Dose: 60 meq Propofol (Diprivan 20 Ml) Confirm Administered Dose 200 mg .ROUTE .STK-MED ONE Stop: 12/19/18 09:39 Propofol (Diprivan 20 Ml) Confirm Administered Dose 200 mg .ROUTE .STK-MED ONE Stop: 12/19/18 09:47 Scopolamine (Transderm-Scop) 1.5 mg TRDERM Q72H PRN PRN Reason: Nausea/Vomiting Last Admin: 12/18/18 06:50 Dose: 1.5 mg
== END 2018-12-21 15:30 | disposition home or self-care (01) | DRG 425 ==
LOC: JD.ED 17:58 → JD.MS 22:29 → INTOOBSV 22:30 → OBSVTOIN 22:30 → JD.MS 22:48 → OBSVTOIN 12-19 11:34
PROVIDERS: ADMIT Family Medicine; ATTEND Family Medicine
PROC: 0DB78ZX Excision of Stomach, Pylorus, Via Natural or Artificial Opening Endoscopic, Diagnostic (ICD-10-PCS; principal; 2018-12-19)
PROC: 0DB48ZX Excision of Esophagogastric Junction, Via Natural or Artificial Opening Endoscopic, Diagnostic (ICD-10-PCS; principal; 2018-12-19)
PROC: 0DB68ZX Excision of Stomach, Via Natural or Artificial Opening Endoscopic, Diagnostic (ICD-10-PCS; principal; 2018-12-19)
DX: E87.6 Hypokalemia (principal); K29.70 Gastritis, unspecified, without bleeding; F12.188 Cannabis abuse with other cannabis-induced disorder; F41.1 Generalized anxiety disorder; R11.2 Nausea with vomiting, unspecified; J45.909 Unspecified asthma, uncomplicated; K21.0 Gastro-esophageal reflux disease with esophagitis; E66.9 Obesity, unspecified; M54.9 Dorsalgia, unspecified; G89.29 Other chronic pain; Z68.31 Body mass index [BMI] 31.0-31.9, adult; Z90.49 Acquired absence of other specified parts of digestive tract; Z88.0 Allergy status to penicillin; Z91.018 Allergy to other foods; Z91.048 Other nonmedicinal substance allergy status
CPT/HCPCS: 00731; 36415; 71046; 71046-26; 80048; 80053; 80306; 81001; 83690; 83735; 84100; 84443; 84703; 85007; 85025; 85027; 86140; 86677; 93005; 93010; 96361; 96365; 96366; 96367; 96368; 96375; 96376; 99284; 99285-25; A9270-GY; C9113; G0378; J1100; J1630; J2001; J2060; J2250; J2405; J2550; J2704; J2765; J3480; J3490; J7042; J7050; J7120

== ENCOUNTER 2018-12-22 09:09 | Emergency (ER) | payer BC ==
[2018-12-22] MEDS ORDERED: LORazepam 2 MG/ML SDV IM ONE (09:50)
[2018-12-22] MEDS ORDERED: Alum Hydrox/Mag Hydrox/Simeth 30 ML, Lidocaine 2% 15 ML PO ONE ×2 (09:50)
[2018-12-22] MEDS ORDERED: Metoclopramide 10 MG/2 ML SDV IM ONE (09:50)
[2018-12-22] MEDS ORDERED: Pantoprazole 40 MG Tab.CR PO ONE (09:51)
--- NOTE | 2018-12-22 09:52 | EDM.PDOC ---
ED HPI GENERAL MEDICAL PROBLEM - General Chief Complaint: Abdominal Pain Stated Complaint: ABDOMINAL PAIN AND NAUSEA Time Seen by Provider: 12/22/18 09:24 Source of Information: Reports: Patient History Limitations: Reports: No Limitations - History of Present Illness INITIAL COMMENTS - FREE TEXT/NARRATIVE: Patient is a 23-year-old female who presents the ED complaining of epigastric discomfort with nausea vomiting. Symptoms started approximately 6:30 this morning. Patient took a clonazepam and also Zantac. The Zantac was vomited up. She was discharged from the hospital yesterday and had been treated for similar complaints. In addition was found to be low on potassium. She had EGD performed which found that she had gastritis of the GE junction. She was supposed to start taking Protonix 40 mg every day to which she has not taken today. Nor has she filled her prescription for citalopram. States her pharmacy was not open. Pain is mild to moderate intensity worsen with vomiting. She complains of some acid reflux. She has not used any marijuana since being discharged.Patient states she last used 2 weeks ago. H. pylori serology were negative. Prior to discharge patient's potassium was 4.0. Magnesium 2.0. Patient denies any short of breath, chest pain, dizziness, syncopal episodes, fever diarrhea, bloody stool, dark tarry stool, dysuria, hematuria, and/or additional complaints. Abdominal Pain Score (Numeric/FACES): 7 - Related Data Allergies Allergy/AdvReac Type Severity Reaction Status Date / Time cheese Allergy unknown Verified 12/22/18 09:27 gluten Allergy unknown Verified 12/22/18 09:27 mold Allergy unknown Verified 12/22/18 09:27 Penicillins Allergy Hives Verified 12/22/18 09:27 Home Meds: Home Meds Citalopram [Citalopram HBr] 20 mg PO DAILY #30 tablet 12/21/18 [Rx] ClonazePAM [KlonoPIN] 0.5 mg PO BID #60 tablet 12/21/18 [Rx] Pantoprazole [ProTONIX] 40 mg PO DAILY #30 tab.cr 12/21/18 [Rx] Ondansetron [Zofran ODT] 4 mg PO Q8H PRN #12 tab.dis 12/22/18 [Rx] Past Medical History - Past Health History Medical/Surgical History: Denies Medical/Surgical History HEENT History: Reports: None Cardiovascular History: Reports: None Respiratory History: Reports: Asthma Gastrointestinal History: Reports: None Genitourinary History: Reports: None 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 Musculoskeletal History: Reports: Back Pain, Chronic Neurological History: Reports: None Psychiatric History: Reports: None Endocrine/Metabolic History: Reports: Obesity/BMI 30+ Hematologic History: Reports: None Immunologic History: Reports: None Oncologic (Cancer) History: Reports: None Dermatologic History: Reports: None - Infectious Disease History Infectious Disease History: Reports: Chicken Pox - Past Surgical History HEENT Surgical History: Reports: Adenoidectomy, Myringotomy w Tube(s), Tonsillectomy Cardiovascular Surgical History: Reports: None Respiratory Surgical History: Reports: None GI Surgical History: Reports: Cholecystectomy Endocrine Surgical History: Reports: None Musculoskeletal Surgical History: Reports: None Social & Family History - Family History Family Medical History: Noncontributory - Tobacco Use Smoking Status *Q: Never Smoker - Caffeine Use Caffeine Use: Reports: Coffee - Recreational Drug Use Recreational Drug Use: Yes - Living Situation & Occupation Living situation: Reports: Single, Alone Occupation: Employed ([employer]) ED ROS GENERAL - Review of Systems Review Of Systems: ROS reveals no pertinent complaints other than HPI. ED EXAM, GI/ABD - Physical Exam Exam: See Below Exam Limited By: No Limitations General Appearance: Alert, WD/WN, Mild Distress Eyes: Bilateral: Normal Appearance Ears: Hearing Grossly Normal Nose: Normal Inspection Throat/Mouth: Normal Inspection, Normal Oropharynx, Normal Voice, No Airway Compromise, Other (moist oral mucosa) Neck: Normal Inspection, Supple Respiratory/Chest: No Respiratory Distress, Lungs Clear, Normal Breath Sounds, No Accessory Muscle Use, Chest Non-Tender Cardiovascular: Normal Peripheral Pulses, Regular Rate, Rhythm, No Murmur GI/Abdominal Exam: Normal Bowel Sounds, Soft, No Organomegaly, No Distention, Tender (epigastric region) Back Exam: Normal Inspection. No: CVA Tenderness (L), CVA Tenderness (R) Extremities: Normal Inspection, Non-Tender, No Pedal Edema Neurological: Alert, Oriented, CN II-XII Intact, Normal Cognition, No Motor/ Sensory Deficits Psychiatric: Normal Affect, Normal Mood Skin Exam: Warm, Dry, Intact, Normal Color, No Rash Course - Vital Signs Last Recorded V/S: Last Vital Signs Temp 97.7 F 05/19/19 09:20 Pulse 70 12/22/18 09:20 Resp 16 12/22/18 09:20 BP 171/106 H 12/22/18 09:20 Pulse Ox 100 12/22/18 09:20 - Orders/Labs/Meds Orders: Active Orders 24 hr Category Date Time Status EKG 12 Lead [EKG Documentation Completion] [RC] STAT Care 12/22/18 10:25 Active Labs: Laboratory Tests 12/22/18 12/22/18 Range/Units 10:40 10:40 WBC 10.48 H (3.98-10.04) K/mm3 RBC 4.97 (3.98-5.22) M/mm3 Hgb 13.5 (11.2-15.7) gm/L Hct 40.4 (34.1-44.9) % MCV 81.3 (79.4-94.8) fl MCH 27.2 (25.6-32.2) pg MCHC 33.4 (32.2-35.5) g/dl RDW Std Deviation 41.8 (36.4-46.3) fL Plt Count 225 (182-369) K/mm3 MPV 10.5 (9.4-12.3) fl Neut % (Auto) 76.8 H (34.0-71.1) % Lymph % (Auto) 15.0 L (19.3-51.7) % [place] % (Auto) 6.8 (4.7-12.5) % Eos % (Auto) 1.0 (0.7-5.8) Baso % (Auto) 0.1 (0.1-1.2) % Neut # (Auto) 8.06 H (1.56-6.13) K/mm3 Lymph # (Auto) 1.57 (1.18-3.74) K/mm3 [place] # (Auto) 0.71 H (0.24-0.36) K/mm3 Eos # (Auto) 0.10 (0.04-0.36) K/mm3 Baso # (Auto) 0.01 (0.01-0.08) K/mm3 Sodium 134 L (136-145) mEq/L Potassium 3.8 (3.5-5.1) mEq/L Chloride 99 (98-107) mEq/L Carbon Dioxide 24 (21-32) mEq/L Anion Gap 14.8 (5-15) BUN 10 (7-18) mg/dL Creatinine 0.9 (0.55-1.02) mg/dL Est Cr Clr Drug Dosing 94.54 mL/min Estimated GFR (MDRD) > 60 (>60) mL/min BUN/Creatinine Ratio 11.1 L (14-18) Glucose 112 H (74-106) mg/dL Calcium 9.2 (8.5-10.1) mg/dL Total Bilirubin 0.5 (0.2-1.0) mg/dL AST 17 (15-37) U/L ALT 31 (14-59) U/L Alkaline Phosphatase 59 (46-116) U/L Total Protein 7.4 (6.4-8.2) g/dl Albumin 4.1 (3.4-5.0) g/dl Globulin 3.3 gm/dL Albumin/Globulin Ratio 1.2 (1-2) Lipase 110 (73-393) U/L Meds: Medications Discontinued Medications Generic Name Dose Route Start Last Admin Trade Name Freq PRN Reason Stop Dose Admin Al Hydroxide/Mg Hydroxide 30 0 ml 12/22/18 09:50 12/22/18 10:01 ml/ Lidocaine HCl 15 ml PO 12/22/18 09:51 45 ml ONETIME ONE Administration Lorazepam 1 mg 12/22/18 09:50 12/22/18 09:59 Ativan IM 12/22/18 09:51 1 mg ONETIME ONE Administration Metoclopramide HCl 10 mg 12/22/18 09:50 12/22/18 09:59 Reglan IM 12/22/18 09:51 10 mg ONETIME ONE Administration Pantoprazole Sodium 40 mg 12/22/18 09:51 12/22/18 10:01 Protonix PO 12/22/18 09:52 40 mg ONETIME ONE Administration - Re-Assessments/Exams Free Text/Narrative Re-Assessment/Exam: Vital signs are stable. Oral mucosa is moist with mild pain to the epigastric region. She has no dizziness, presyncope/stable episode with standing. No labwork will be obtained. [id number]- I ordered Ativan 1 mg IM, Reglan 10 mg IM, Protonix 40 mg by mouth, and also GI cocktail. 12/22/18 1040 Reassessment, patient is feeling a little better after the ativan and reglan. I did opt to order EKG with history of QTC prolongation. EKG revealed sinus rhythm at a rate of 69 with QTC of 434. Labs have been ordered as well. 12/22/18 11:06 Reassessment, patient is feeling much better after the GI cocktail. Once labs have resulted I will look and discharge the patient home. She was not discharged home with any antinausea meds and will do so for her. 12/22/18 11:23 CBC indicated White blood cell count 10.48, neutrophil percent is 76.8, neutrophil number of a 8.06. Hemoglobin and platelet normal. CMP: Sodium 134. Potassium 3.8. Crit 0.9. Glucose 112. AST ALT within normal limits. Lipase normal. Patient will be discharged home. Return precautions were discussed with patient and mother. She had no further questions or concerns. Discharge instructions as documented. Departure - Departure Time of Disposition: 11:11 Disposition: Home, Self-Care 01 Condition: Good Clinical Impression: Gastritis Qualifiers: Gastritis type: unspecified gastritis Chronicity: acute Gastritis bleeding: without bleeding Qualified Code(s): K29.00 - Acute gastritis without bleeding Nausea & vomiting Qualifiers: Vomiting type: unspecified Vomiting Intractability: non-intractable Qualified Code(s): R11.2 - Nausea with vomiting, unspecified - Discharge Information Prescriptions: Ondansetron [Zofran ODT] 4 mg PO Q8H PRN #12 tab.dis PRN Reason: Nausea/Vomiting Instructions: Gastritis, Adult, [id number], Nausea and Vomiting, Adult Referrals: Jayla Figueroa MD [Primary Care Provider] - Forms: ED Department Discharge Additional Instructions: Take the Zofran as prescribed for nausea and vomiting. Do not take this medication in excess. Stick with a liquid diet over the next 24-48 hours. Advance to bland diet thereafter. Follow-up with PCP for reevaluation. Return to the ED if you develop any new or worsening symptoms. Continue to take all the medications prescribed on discharge from the hospital. - My Orders Last 24 Hours: My Active Orders 12/22/18 10:25 EKG 12 Lead [EKG Documentation Completion] [RC] STAT - Assessment/Plan Last 24 Hours: My Active Orders 12/22/18 10:25 EKG 12 Lead [EKG Documentation Completion] [RC] STAT
== END 2018-12-22 11:35 | disposition home or self-care (01) ==
LOC: JD.ED 09:09
DX: K29.00 Acute gastritis without bleeding (principal); J45.909 Unspecified asthma, uncomplicated; Z79.899 Other long term (current) drug therapy; Z91.018 Allergy to other foods; Z88.0 Allergy status to penicillin
CPT/HCPCS: 36415; 80053; 83690; 85025; 93005; 96372; 99284; A9270; J2060; J2765; 99283

== ENCOUNTER 2018-12-24 11:03 | Emergency (ER) | payer BC ==
[2018-12-24] MEDS ORDERED: Sodium Chloride 0.9% 10 ML Syringe FLUSH PRN (11:20)
[2018-12-24] MEDS ORDERED: Promethazine 25 MG/ML SDV IM ONE (11:21)
[2018-12-24] MEDS ORDERED: Hyoscyamine 0.125 MG Tab.SL SL ONE (11:27)
[2018-12-24] MEDS ORDERED: Sodium Chloride 0.9% 1,000 ML IV SCH (11:30)
--- NOTE | 2018-12-24 11:52 | EDM.PDOC ---
ED HPI GENERAL MEDICAL PROBLEM - General Chief Complaint: Gastrointestinal Problem Stated Complaint: CONSTANTLY VOMITING Time Seen by Provider: 12/24/18 11:07 Source of Information: Reports: Patient History Limitations: Reports: No Limitations - History of Present Illness INITIAL COMMENTS - FREE TEXT/NARRATIVE: 23 y/o female presents to ER with cc abdominal pain, nausea and vomiting for the past 7 days. This is her 5th visit to the ER since 12/11/18 for the same symptoms. She states she recently had a EDG that showed she had gastritis. She denies fever, chills, dizziness, syncope, chest pain, bloody stools, dysuria and or additional complaints. She did not get her Reglan filled and is not taking her Zofran because " they don't work." She reports she vomited 5 times today. She states nothing makes it better, it worse when she eats. She denies any illicit drugs, states she smoked pot 2 weeks ago. She is accompanied by her friend. Her PCP is Dr. Jayla Figueroa in [place]. Onset Date: 12/11/18 Onset Time: 09:00 Duration: Getting Worse, Intermittent Location: Reports: Abdomen Severity: Mild Improves with: Reports: None Worsens with: Reports: Eating Associated Symptoms: Denies: Chest Pain, Cough, Diaphoresis, Fever/Chills, Nausea/Vomiting, Shortness of Breath, Syncope, Weakness Left Upper Abdomen Pain Score (Numeric/FACES): 8 - Related Data Allergies Allergy/AdvReac Type Severity Reaction Status Date / Time cheese Allergy unknown Verified 12/24/18 11:08 gluten Allergy unknown Verified 12/24/18 11:08 mold Allergy unknown Verified 12/24/18 11:08 Penicillins Allergy Hives Verified 12/24/18 11:08 Home Meds: Home Meds Citalopram [Citalopram HBr] 20 mg PO DAILY #30 tablet 12/21/18 [Rx] ClonazePAM [KlonoPIN] 0.5 mg PO BID #60 tablet 12/21/18 [Rx] Pantoprazole [ProTONIX] 40 mg PO DAILY #30 tab.cr 12/21/18 [Rx] Promethazine HCl [Phenergan] 25 mg RC Q6HR PRN 3 Days #6 supp.rect 12/24/18 [Rx] Past Medical History - Past Health History Medical/Surgical History: Denies Medical/Surgical History HEENT History: Reports: None Cardiovascular History: Reports: None Respiratory History: Reports: Asthma Gastrointestinal History: Reports: None Genitourinary History: Reports: None 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 Musculoskeletal History: Reports: Back Pain, Chronic Neurological History: Reports: None Psychiatric History: Reports: Anxiety Endocrine/Metabolic History: Reports: Obesity/BMI 30+ Hematologic History: Reports: None Immunologic History: Reports: None Oncologic (Cancer) History: Reports: None Dermatologic History: Reports: None - Infectious Disease History Infectious Disease History: Reports: Chicken Pox - Past Surgical History HEENT Surgical History: Reports: Adenoidectomy, Myringotomy w Tube(s), Tonsillectomy Cardiovascular Surgical History: Reports: None Respiratory Surgical History: Reports: None GI Surgical History: Reports: Cholecystectomy Endocrine Surgical History: Reports: None Musculoskeletal Surgical History: Reports: None Social & Family History - Family History Family Medical History: Noncontributory - Tobacco Use Smoking Status *Q: Never Smoker - Caffeine Use Caffeine Use: Reports: None - Recreational Drug Use Recreational Drug Use: Yes Recreational Drug Type: Reports: Marijuana/Hashish Other Recreational Drug Type: Has not for 2 weeks Recreational Drug Use Frequency: Daily - Living Situation & Occupation Living situation: Reports: Single, Alone Occupation: Employed ([employer] ED ROS GENERAL - Review of Systems Review Of Systems: See Below Constitutional: Denies: Fever, Chills HEENT: Reports: No Symptoms Respiratory: Denies: Shortness of Breath Cardiovascular: Denies: Chest Pain Endocrine: Reports: Fatigue GI/Abdominal: Reports: Abdominal Pain, Nausea, Vomiting. Denies: Constipation, Diarrhea : Reports: Urinary Retention Skin: Reports: No Symptoms Neurological: Reports: No Symptoms Psychiatric: Reports: No Symptoms Hematologic/Lymphatic: Reports: No Symptoms Immunologic: Reports: No Symptoms ED EXAM, GI/ABD - Physical Exam Exam: See Below General Appearance: Alert, WD/WN, No Apparent Distress Neck: Normal Inspection, Supple, Non-Tender Respiratory/Chest: No Respiratory Distress, Lungs Clear, Normal Breath Sounds, No Accessory Muscle Use, Chest Non-Tender Cardiovascular: Normal Peripheral Pulses, Regular Rate, Rhythm, No Edema, No Gallop, No JVD, No Murmur, No Rub GI/Abdominal Exam: Normal Bowel Sounds, Soft, Non-Tender, No Organomegaly, No Distention, No Abnormal Bruit, No Mass Back Exam: Normal Inspection, Full Range of Motion Neurological: Alert, Oriented, CN II-XII Intact, Normal Cognition, Normal Gait Psychiatric: Normal Affect, Normal Mood Skin Exam: Warm, Dry, Intact, Normal Color, No Rash Course - Vital Signs Last Recorded V/S: Last Vital Signs Temp 97.8 F 12/24/18 11:09 Pulse 77 12/24/18 11:09 Resp 20 12/24/18 11:09 BP 175/102 H 12/24/18 11:09 Pulse Ox 100 12/24/18 11:09 - Orders/Labs/Meds Orders: Active Orders 24 hr Category Date Time Status Sodium Chloride 0.9% [Normal Saline] 1,000 ml Med 12/24/18 11:30 Active IV ASDIRECTED Sodium Chloride 0.9% [Saline Flush] Med 12/24/18 11:20 Active 10 ml FLUSH ASDIRECTED PRN Saline Lock Insert [OM.PC] Routine Oth 12/24/18 11:20 Ordered Medication Orders Sodium Chloride (Normal Saline) 1,000 mls @ 999 mls/hr IV ASDIRECTED MARIBELL Last Admin: 12/24/18 11:38 Dose: 999 mls/hr Sodium Chloride (Saline Flush) 10 ml FLUSH ASDIRECTED PRN PRN Reason: Keep Vein Open Last Admin: 12/24/18 11:38 Dose: 10 ml Labs: Laboratory Tests 12/24/18 12/24/18 12/24/18 Range/Units 11:30 11:30 12:32 WBC 11.58 H (3.98-10.04) K/mm3 RBC 5.20 (3.98-5.22) M/mm3 Hgb 14.2 (11.2-15.7) gm/L Hct 41.9 (34.1-44.9) % MCV 80.6 (79.4-94.8) fl MCH 27.3 (25.6-32.2) pg MCHC 33.9 (32.2-35.5) g/dl RDW Std Deviation 41.7 (36.4-46.3) fL Plt Count 253 (182-369) K/mm3 MPV 11.1 (9.4-12.3) fl Neut % (Auto) 81.5 H (34.0-71.1) % Lymph % (Auto) 10.8 L (19.3-51.7) % [place] % (Auto) 6.5 (4.7-12.5) % Eos % (Auto) 0.8 (0.7-5.8) Baso % (Auto) 0.1 (0.1-1.2) % Neut # (Auto) 9.45 H (1.56-6.13) K/mm3 Lymph # (Auto) 1.25 (1.18-3.74) K/mm3 [place] # (Auto) 0.75 H (0.24-0.36) K/mm3 Eos # (Auto) 0.09 (0.04-0.36) K/mm3 Baso # (Auto) 0.01 (0.01-0.08) K/mm3 Sodium 134 L (136-145) mEq/L Potassium 3.7 (3.5-5.1) mEq/L Chloride 99 (98-107) mEq/L Carbon Dioxide 23 (21-32) mEq/L Anion Gap 15.7 H (5-15) BUN 11 (7-18) mg/dL Creatinine 1.0 (0.55-1.02) mg/dL Est Cr Clr Drug Dosing 85.09 mL/min Estimated GFR (MDRD) > 60 (>60) mL/min BUN/Creatinine Ratio 11.0 L (14-18) Glucose 116 H (74-106) mg/dL Calcium 9.4 (8.5-10.1) mg/dL Total Bilirubin 0.5 (0.2-1.0) mg/dL AST 17 (15-37) U/L ALT 36 (14-59) U/L Alkaline Phosphatase 61 (46-116) U/L Total Protein 7.9 (6.4-8.2) g/dl Albumin 4.4 (3.4-5.0) g/dl Globulin 3.5 gm/dL Albumin/Globulin Ratio 1.3 (1-2) Urine Color Yellow (Yellow) Urine Appearance Clear (Clear) Urine pH 8.5 H (5.0-8.0) Ur Specific [place] 1.020 (1.005-1.030) Urine Protein Negative (Negative) Urine Glucose (UA) Negative (Negative) Urine Ketones Negative (Negative) Urine Occult Blood Negative (Negative) Urine Nitrite Negative (Negative) Urine Bilirubin Negative (Negative) Urine Urobilinogen 0.2 (0.2-1.0) Ur Leukocyte Esterase Negative (Negative) Urine HCG, Qual (NEGATIVE) 12/24/18 Range/Units 12:32 WBC (3.98-10.04) K/mm3 RBC (3.98-5.22) M/mm3 Hgb (11.2-15.7) gm/L Hct (34.1-44.9) % MCV (79.4-94.8) fl MCH (25.6-32.2) pg MCHC (32.2-35.5) g/dl RDW Std Deviation (36.4-46.3) fL Plt Count (182-369) K/mm3 MPV (9.4-12.3) fl Neut % (Auto) (34.0-71.1) % Lymph % (Auto) (19.3-51.7) % [place] % (Auto) (4.7-12.5) % Eos % (Auto) (0.7-5.8) Baso % (Auto) (0.1-1.2) % Neut # (Auto) (1.56-6.13) K/mm3 Lymph # (Auto) (1.18-3.74) K/mm3 [place] # (Auto) (0.24-0.36) K/mm3 Eos # (Auto) (0.04-0.36) K/mm3 Baso # (Auto) (0.01-0.08) K/mm3 Sodium (136-145) mEq/L Potassium (3.5-5.1) mEq/L Chloride (98-107) mEq/L Carbon Dioxide (21-32) mEq/L Anion Gap (5-15) BUN (7-18) mg/dL Creatinine (0.55-1.02) mg/dL Est Cr Clr Drug Dosing mL/min Estimated GFR (MDRD) (>60) mL/min BUN/Creatinine Ratio (14-18) Glucose (74-106) mg/dL Calcium (8.5-10.1) mg/dL Total Bilirubin (0.2-1.0) mg/dL AST (15-37) U/L ALT (14-59) U/L Alkaline Phosphatase (46-116) U/L Total Protein (6.4-8.2) g/dl Albumin (3.4-5.0) g/dl Globulin gm/dL Albumin/Globulin Ratio (1-2) Urine Color (Yellow) Urine Appearance (Clear) Urine pH (5.0-8.0) Ur Specific [place] (1.005-1.030) Urine Protein (Negative) Urine Glucose (UA) (Negative) Urine Ketones (Negative) Urine Occult Blood (Negative) Urine Nitrite (Negative) Urine Bilirubin (Negative) Urine Urobilinogen (0.2-1.0) Ur Leukocyte Esterase (Negative) Urine HCG, Qual Negative (NEGATIVE) Meds: Medications Generic Name Dose Route Start Last Admin Trade Name Freq PRN Reason Stop Dose Admin Sodium Chloride 1,000 mls @ 999 mls/hr 12/24/18 11:30 12/24/18 11:38 Normal Saline IV 999 mls/hr ASDIRECTED MARIBELL Administration Sodium Chloride 10 ml 12/24/18 11:20 12/24/18 11:38 Saline Flush FLUSH 10 ml ASDIRECTED PRN Administration Keep Vein Open Discontinued Medications Generic Name Dose Route Start Last Admin Trade Name Freq PRN Reason Stop Dose Admin Hyoscyamine 0.125 mg 12/24/18 11:27 12/24/18 11:38 Hyomax-Sl SL 12/24/18 11:28 0.125 mg ONETIME ONE Administration Metoclopramide HCl 10 mg 12/24/18 11:53 12/24/18 12:03 Reglan IVPUSH 12/24/18 11:54 10 mg ONETIME ONE Administration Promethazine HCl 25 mg 12/24/18 11:21 12/24/18 11:38 Phenergan IM 12/24/18 11:22 25 mg ONETIME ONE Administration - Re-Assessments/Exams Free Text/Narrative Re-Assessment/Exam: 12/24/18 12:22 WBC 11.58 H & H 14.2/41.9 NA+ 134 k+ 3.7 CHL 99 CO2 23 BUN 11 creatine 1.0 glucose 116 ast 17 alt 36. She states she feels better after receiving Levsin, IVF, Pepcid and Phenergan. 12/24/18 12:56 Patient is tolerating P.O. challenge. I will discharge home with instructions to take medications as prescribed and to fill her Reglan and take it as prescribed. I will discharge with Phenergan suppositories. 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 Instructed to return to the ER for any new or acute worsening symptoms. She verbalized understanding and is comfortable with plan for discharge. She is stable at time of discharge. Departure - Departure Time of Disposition: 12:58 Disposition: Home, Self-Care 01 Condition: Good Clinical Impression: Gastritis Qualifiers: Gastritis type: unspecified gastritis Chronicity: acute Gastritis bleeding: without bleeding Qualified Code(s): K29.00 - Acute gastritis without bleeding - Discharge Information Prescriptions: Promethazine HCl [Phenergan] 25 mg RC Q6HR PRN 3 Days #6 supp.rect PRN Reason: Nausea Instructions: Gastritis, Adult, [id number] Referrals: Jayla Figueroa MD [Primary Care Provider] - Forms: ED Department Discharge Additional Instructions: You have been diagnosis with gastritis. I recommend you fill your prescriptions and take your medications as prescribed. Follow up with your PCP. Return to the ER for any new or acute worsening symptoms. You have been prescribed Phenergan suppositories for nausea. Do not take this medication and drink, drive or operate machinery. - My Orders Last 24 Hours: My Active Orders 12/24/18 11:20 Sodium Chloride 0.9% [Saline Flush] 10 ml FLUSH ASDIRECTED PRN Saline Lock Insert [OM.PC] Routine 12/24/18 11:30 Sodium Chloride 0.9% [Normal Saline] 1,000 ml IV ASDIRECTED - Assessment/Plan Last 24 Hours: My Active Orders 12/24/18 11:20 Sodium Chloride 0.9% [Saline Flush] 10 ml FLUSH ASDIRECTED PRN Saline Lock Insert [OM.PC] Routine 12/24/18 11:30 Sodium Chloride 0.9% [Normal Saline] 1,000 ml IV ASDIRECTED
[2018-12-24] MEDS ORDERED: Metoclopramide 10 MG/2 ML SDV IVPUSH ONE (11:53)
== END 2018-12-24 13:14 | disposition home or self-care (01) ==
LOC: JD.ED 11:03
DX: K29.00 Acute gastritis without bleeding (principal); F41.9 Anxiety disorder, unspecified; Z79.899 Other long term (current) drug therapy; Z88.0 Allergy status to penicillin; Z91.018 Allergy to other foods
CPT/HCPCS: 36415; 80053; 81003; 81025; 85025; 96360; 96372; 96374; 99284; A9270; J2550; J2765; J7040

== ENCOUNTER 2020-05-19 06:06 | Emergency (ER) | payer BC ==
[2020-05-19] MEDS ORDERED: Sodium Chloride 0.9% 10 ML Syringe FLUSH PRN (07:38)
[2020-05-19] MEDS ORDERED: Metoclopramide 10 MG/2 ML SDV IVPUSH ONE (07:38)
[2020-05-19] MEDS ORDERED: HYDROmorphone 0.5 MG/0.5 ML Syringe IVPUSH ONE (07:38)
--- NOTE | 2020-05-19 07:39 | EDM.PDOC ---
ED HPI GENERAL MEDICAL PROBLEM - General Chief Complaint: Abdominal Pain Stated Complaint: VOMITTING AND ABD PAIN Time Seen by Provider: 05/19/20 07:03 Source of Information: Reports: Patient, RN Notes Reviewed - History of Present Illness INITIAL COMMENTS - FREE TEXT/NARRATIVE: 25 yr old female with onset of nausea, vomiting yesterday AM followed by frequent watery diarrhea. No fever. Chills this AM. Coughing only when she vomits. GB is out. Still has appendix. Had a covid screen done for sent out yesterday at one of the clinics. Left Lower Abdomen Pain Score (Numeric/FACES): 6 - Related Data Allergies Allergy/AdvReac Type Severity Reaction Status Date / Time cheese Allergy unknown Verified 05/19/20 06:13 gluten Allergy unknown Verified 05/19/20 06:13 mold Allergy unknown Verified 05/19/20 06:13 Penicillins Allergy Hives Verified 05/19/20 06:13 Home Meds: Home Meds Potassium Chloride [Klor-Con M20] 20 meq PO Q12H #4 tab.er 05/20/20 [Rx] Past Medical History - Past Health History Medical/Surgical History: Denies Medical/Surgical History HEENT History: Reports: None Cardiovascular History: Reports: None Respiratory History: Reports: Asthma Gastrointestinal History: Reports: None Genitourinary History: Reports: None 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 Musculoskeletal History: Reports: Back Pain, Chronic Neurological History: Reports: None Psychiatric History: Reports: Anxiety Endocrine/Metabolic History: Reports: Obesity/BMI 30+ Hematologic History: Reports: None Immunologic History: Reports: None Oncologic (Cancer) History: Reports: None Dermatologic History: Reports: None - Infectious Disease History Infectious Disease History: Reports: Chicken Pox - Past Surgical History HEENT Surgical History: Reports: Adenoidectomy, Myringotomy w Tube(s), Tonsillectomy GI Surgical History: Reports: Cholecystectomy Social & Family History - Family History Family Medical History: Noncontributory - Tobacco Use Tobacco Use Status *Q: Never Tobacco User - Caffeine Use Caffeine Use: Reports: None - Recreational Drug Use Recreational Drug Use: Yes Drug Use in Last 12 Months: Yes Recreational Drug Type: Reports: Marijuana/Hashish Recreational Drug Use Frequency: Not Used In Over 1 Month - Living Situation & Occupation Living situation: Reports: Single, Alone Occupation: Employed ([employer]) ED ROS GENERAL - Review of Systems Review Of Systems: See Below Constitutional: Denies: Fever, Chills HEENT: Reports: No Symptoms Respiratory: Denies: Shortness of Breath Cardiovascular: Denies: Chest Pain GI/Abdominal: Reports: Abdominal Pain, Diarrhea, Nausea, Vomiting Musculoskeletal: Reports: No Symptoms Skin: Reports: No Symptoms Neurological: Reports: No Symptoms ED EXAM, GI/ABD - Physical Exam Exam: See Below General Appearance: Alert, No Apparent Distress Head: Atraumatic Neck: Supple Respiratory/Chest: No Respiratory Distress, Lungs Clear, Normal Breath Sounds Cardiovascular: Regular Rate, Rhythm Back Exam: No: CVA Tenderness (L), CVA Tenderness (R) Extremities: Normal Inspection, Normal Range of Motion Neurological: Alert, Oriented, No Motor/Sensory Deficits Skin Exam: Warm, Dry, Normal Color Course - Vital Signs Last Recorded V/S: Last Vital Signs Temp 97.7 F 05/19/20 06:14 Pulse 67 05/19/20 06:14 Resp 17 05/19/20 06:14 BP 143/104 H 05/19/20 06:14 Pulse Ox 97 05/19/20 06:14 - Orders/Labs/Meds Labs: Laboratory Tests 05/19/20 05/19/20 Range/Units 06:36 06:36 WBC 5.28 (3.98-10.04) K/mm3 RBC 4.83 (3.98-5.22) M/mm3 Hgb 13.3 (11.2-15.7) gm/dl Hct 41.3 (34.1-44.9) % MCV 85.5 D (79.4-94.8) fl MCH 27.5 (25.6-32.2) pg MCHC 32.2 (32.2-35.5) g/dl RDW Std Deviation 45.1 (36.4-46.3) fL Plt Count 245 (182-369) K/mm3 MPV 10.4 (9.4-12.3) fl Neut % (Auto) 73.9 H (34.0-71.1) % Lymph % (Auto) 12.1 L (19.3-51.7) % [place] % (Auto) 13.6 H (4.7-12.5) % Eos % (Auto) 0.2 L (0.7-5.8) Baso % (Auto) 0.2 (0.1-1.2) % Neut # (Auto) 3.90 (1.56-6.13) K/mm3 Lymph # (Auto) 0.64 L (1.18-3.74) K/mm3 [place] # (Auto) 0.72 H (0.24-0.36) K/mm3 Eos # (Auto) 0.01 L (0.04-0.36) K/mm3 Baso # (Auto) 0.01 (0.01-0.08) K/mm3 Sodium 138 (136-145) mEq/L Potassium 3.4 L (3.5-5.1) mEq/L Chloride 101 (98-107) mEq/L Carbon Dioxide 23 (21-32) mEq/L Anion Gap 17.4 H (5-15) BUN 12 (7-18) mg/dL Creatinine 1.0 (0.55-1.02) mg/dL Est Cr Clr Drug Dosing 83.63 mL/min Estimated GFR (MDRD) > 60 (>60) mL/min BUN/Creatinine Ratio 12.0 L (14-18) Glucose 129 H (74-106) mg/dL Calcium 8.7 (8.5-10.1) mg/dL Total Bilirubin 0.4 (0.2-1.0) mg/dL AST 13 L (15-37) U/L ALT 23 (14-59) U/L Alkaline Phosphatase 58 (46-116) U/L Total Protein 8.0 (6.4-8.2) g/dl Albumin 4.1 (3.4-5.0) g/dl Globulin 3.9 gm/dL Albumin/Globulin Ratio 1.1 (1-2) Meds: Medications Discontinued Medications Generic Name Dose Route Start Last Admin Trade Name Freq PRN Reason Stop Dose Admin Hydromorphone HCl 0.5 mg 05/19/20 07:38 05/19/20 08:12 Dilaudid IVPUSH 05/19/20 07:39 0.5 mg ONETIME ONE Administration Sodium Chloride 1,000 mls @ 999 mls/hr 05/19/20 07:45 05/19/20 08:14 Normal Saline IV 999 mls/hr ONETIME MARIBELL Administration Metoclopramide HCl 5 mg 05/19/20 07:38 10/14/20 08:09 Reglan IVPUSH 05/19/20 07:39 5 mg ONETIME ONE Administration Sodium Chloride 10 ml 05/19/20 07:38 05/19/20 08:11 Saline Flush FLUSH 10 ml ASDIRECTED PRN Administration Keep Vein Open - Re-Assessments/Exams Free Text/Narrative Re-Assessment/Exam: 05/20/20 14:56 WBC nl, anion gap mildly elevated, have given 1 liter of fluid, IV meds, she feels better at time of discharge. Departure - Departure Time of Disposition: 09:17 Disposition: Home, Self-Care 01 Condition: Fair Clinical Impression: Vomiting, Diarrhea, Abdominal pain - Discharge Information Instructions: Diarrhea, Adult, Abdominal Pain, Adult, Vomiting, Adult Referrals: Jayla Figueroa MD [Primary Care Provider] - Forms: ED Department Discharge Additional Instructions: Clear liquids until this evening, than very careful bland diet as tolerated. Reglan q 8 hr if needed for further nausea or vomiting. [facility] Self Isolate until you get results of the covid screen. Probiotic twice daily. Follow up clinic if symptoms not resolving as expected. Return to ED as needed. Sepsis Event Note (ED) - Evaluation Sepsis Screening Result: No Definite Risk
[2020-05-19] MEDS ORDERED: Sodium Chloride 0.9% 1,000 ML IV SCH (07:45)
== END 2020-05-19 09:40 | disposition home or self-care (01) ==
LOC: JD.ED 06:06
DX: R11.2 Nausea with vomiting, unspecified (principal); R19.7 Diarrhea, unspecified; R10.32 Left lower quadrant pain; J45.909 Unspecified asthma, uncomplicated; E66.9 Obesity, unspecified; Z68.36 Body mass index [BMI] 36.0-36.9, adult; Z91.048 Other nonmedicinal substance allergy status; Z88.0 Allergy status to penicillin; Z91.018 Allergy to other foods
CPT/HCPCS: 36415; 80053; 85025; 96374; 96375; 99284; J1170; J2765; J7030

== ENCOUNTER 2020-05-19 19:58 | Emergency (ER) | payer BC ==
--- NOTE | 2020-05-19 20:08 | EDM.PDOC ---
ED HPI GENERAL MEDICAL PROBLEM - General Chief Complaint: Gastrointestinal Problem Stated Complaint: TROWING UP AND STOMACH PAIN Time Seen by Provider: 05/19/20 20:07 - History of Present Illness INITIAL COMMENTS - FREE TEXT/NARRATIVE: 25-year-old female presents the emergency room with abdominal pain and continued nausea and vomiting. Patient was seen in the emergency department this morning her labs look pretty good she was given a prescription for Reglan. She went to the clinic pharmacy and apparently the walk-in clinic gave her a prescription for Phenergan and that is what she was given. But is not working. Patient denies any fevers or chills she complains of left lower quadrant pain for the most part. Patient states she had abdominal pain before the nausea and vomiting started. This is been going on now approaching 2 days. Left Lower Abdomen Pain Score (Numeric/FACES): 8 - Related Data Allergies Allergy/AdvReac Type Severity Reaction Status Date / Time cheese Allergy unknown Verified 05/19/20 06:13 gluten Allergy unknown Verified 05/19/20 06:13 mold Allergy unknown Verified 05/19/20 06:13 Penicillins Allergy Hives Verified 05/19/20 06:13 Home Meds: Home Meds Potassium Chloride [Klor-Con M20] 20 meq PO Q12H #4 tab.er 05/20/20 [Rx] Past Medical History - Past Health History Medical/Surgical History: Denies Medical/Surgical History HEENT History: Reports: None Cardiovascular History: Reports: None Respiratory History: Reports: Asthma Gastrointestinal History: Reports: None Genitourinary History: Reports: None 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 Musculoskeletal History: Reports: Back Pain, Chronic Neurological History: Reports: None Psychiatric History: Reports: Anxiety Endocrine/Metabolic History: Reports: Obesity/BMI 30+ Hematologic History: Reports: None Immunologic History: Reports: None Oncologic (Cancer) History: Reports: None Dermatologic History: Reports: None - Infectious Disease History Infectious Disease History: Reports: Chicken Pox - Past Surgical History HEENT Surgical History: Reports: Adenoidectomy, Myringotomy w Tube(s), Tonsillectomy GI Surgical History: Reports: Cholecystectomy Social & Family History - Family History Family Medical History: Noncontributory - Caffeine Use Caffeine Use: Reports: None - Living Situation & Occupation Living situation: Reports: Single, Alone Occupation: Employed ([employer]) ED ROS GENERAL - Review of Systems Review Of Systems: See Below Constitutional: Reports: No Symptoms HEENT: Reports: No Symptoms, Vertigo Cardiovascular: Reports: No Symptoms GI/Abdominal: Reports: Abdominal Pain, Diarrhea (Yellow-green watery diarrhea nonbloody), Nausea, Vomiting. Denies: Black Stool, Bloody Stool ED EXAM, GI/ABD - Physical Exam Exam: See Below Exam Limited By: No Limitations General Appearance: Alert, No Apparent Distress Head: Atraumatic, Normocephalic Neck: Normal Inspection, Supple, Non-Tender, Full Range of Motion Respiratory/Chest: No Respiratory Distress, Lungs Clear, Normal Breath Sounds Cardiovascular: Regular Rate, Rhythm, No Edema, No Murmur GI/Abdominal Exam: Normal Bowel Sounds, Soft, Other (Significant left lower quadrant pain vague mild generalized pain elsewhere no right lower quadrant pain she has some. Umbilical pain. No rigidity rebound or guarding) Back Exam: Normal Inspection. No: CVA Tenderness (L), CVA Tenderness (R) Extremities: Normal Inspection, No Pedal Edema Neurological: Alert, Oriented, Normal Cognition Course - Vital Signs Last Recorded V/S: Last Vital Signs Temp 37.0 C 05/19/20 20:06 Pulse 81 05/19/20 20:06 Resp 18 05/19/20 20:06 BP 169/97 H 05/19/20 20:06 Pulse Ox 98 05/19/20 20:06 - Orders/Labs/Meds Orders: Active Orders 24 hr Category Date Time Status Abdomen Pelvis w Cont [CT] Stat Exams 05/19/20 20:55 Taken Labs: Laboratory Tests 05/19/20 05/19/20 05/19/20 Range/Units 20:18 20:18 20:18 WBC 4.76 (3.98-10.04) K/mm3 RBC 4.54 (3.98-5.22) M/mm3 Hgb 12.7 (11.2-15.7) gm/dl Hct 38.9 (34.1-44.9) % MCV 85.7 (79.4-94.8) fl MCH 28.0 (25.6-32.2) pg MCHC 32.6 (32.2-35.5) g/dl RDW Std Deviation 44.1 (36.4-46.3) fL Plt Count 195 (182-369) K/mm3 MPV 10.3 (9.4-12.3) fl Neut % (Auto) 71.9 H (34.0-71.1) % Lymph % (Auto) 16.6 L (19.3-51.7) % [place] % (Auto) 11.1 (4.7-12.5) % Eos % (Auto) 0 L (0.7-5.8) Baso % (Auto) 0.2 (0.1-1.2) % Neut # (Auto) 3.42 (1.56-6.13) K/mm3 Lymph # (Auto) 0.79 L (1.18-3.74) K/mm3 [place] # (Auto) 0.53 H (0.24-0.36) K/mm3 Eos # (Auto) 0.00 L (0.04-0.36) K/mm3 Baso # (Auto) 0.01 (0.01-0.08) K/mm3 Sodium 138 (136-145) mEq/L Potassium 3.4 L (3.5-5.1) mEq/L Chloride 103 (98-107) mEq/L Carbon Dioxide 21 (21-32) mEq/L Anion Gap 17.4 H (5-15) BUN 12 (7-18) mg/dL Creatinine 0.9 (0.55-1.02) mg/dL Est Cr Clr Drug Dosing 92.92 mL/min Estimated GFR (MDRD) > 60 (>60) mL/min BUN/Creatinine Ratio 13.3 L (14-18) Glucose 119 H (74-106) mg/dL Calcium 8.5 (8.5-10.1) mg/dL HCG, Qual Negative (NEGATIVE) Urine Color (Yellow) Urine Appearance (Clear) Urine pH (5.0-8.0) Ur Specific [place] (1.005-1.030) Urine Protein (Negative) Urine Glucose (UA) (Negative) Urine Ketones (Negative) Urine Occult Blood (Negative) Urine Nitrite (Negative) Urine Bilirubin (Negative) Urine Urobilinogen (0.2-1.0) Ur Leukocyte Esterase (Negative) Urine RBC (0-5) /hpf Urine WBC (0-5) /hpf Ur Squamous Epith Cells (0-5) /hpf Urine Bacteria (FEW) /hpf Urine Mucus (FEW) /hpf Urine HCG, Qual (NEGATIVE) 05/19/20 05/19/20 Range/Units 21:51 21:51 WBC (3.98-10.04) K/mm3 RBC (3.98-5.22) M/mm3 Hgb (11.2-15.7) gm/dl Hct (34.1-44.9) % MCV (79.4-94.8) fl MCH (25.6-32.2) pg MCHC (32.2-35.5) g/dl RDW Std Deviation (36.4-46.3) fL Plt Count (182-369) K/mm3 MPV (9.4-12.3) fl Neut % (Auto) (34.0-71.1) % Lymph % (Auto) (19.3-51.7) % [place] % (Auto) (4.7-12.5) % Eos % (Auto) (0.7-5.8) Baso % (Auto) (0.1-1.2) % Neut # (Auto) (1.56-6.13) K/mm3 Lymph # (Auto) (1.18-3.74) K/mm3 [place] # (Auto) (0.24-0.36) K/mm3 Eos # (Auto) (0.04-0.36) K/mm3 Baso # (Auto) (0.01-0.08) K/mm3 Sodium (136-145) mEq/L Potassium (3.5-5.1) mEq/L Chloride (98-107) mEq/L Carbon Dioxide (21-32) mEq/L Anion Gap (5-15) BUN (7-18) mg/dL Creatinine (0.55-1.02) mg/dL Est Cr Clr Drug Dosing mL/min Estimated GFR (MDRD) (>60) mL/min BUN/Creatinine Ratio (14-18) Glucose (74-106) mg/dL Calcium (8.5-10.1) mg/dL HCG, Qual (NEGATIVE) Urine Color Yellow (Yellow) Urine Appearance Clear (Clear) Urine pH 6.0 (5.0-8.0) Ur Specific [place] > or = 1.030 (1.005-1.030) Urine Protein Trace H (Negative) Urine Glucose (UA) Negative (Negative) Urine Ketones 4+ H (Negative) Urine Occult Blood Negative (Negative) Urine Nitrite Negative (Negative) Urine Bilirubin 1+ H (Negative) Urine Urobilinogen 0.2 (0.2-1.0) Ur Leukocyte Esterase Negative (Negative) Urine RBC 0-5 (0-5) /hpf Urine WBC 0-5 (0-5) /hpf Ur Squamous Epith Cells 0-5 (0-5) /hpf Urine Bacteria Moderate H (FEW) /hpf Urine Mucus Moderate H (FEW) /hpf Urine HCG, Qual Negative (NEGATIVE) Meds: Medications Discontinued Medications Generic Name Dose Route Start Last Admin Trade Name Freq PRN Reason Stop Dose Admin Lactated Ringer's 1,000 mls @ 999 mls/hr 05/19/20 20:35 05/19/20 20:43 Ringers, Lactated IV 05/19/20 21:35 999 mls/hr .BOLUS ONE Administration Lactated Ringer's 1,000 mls @ 999 mls/hr 05/20/20 01:56 05/20/20 02:18 Ringers, Lactated IV 05/20/20 02:56 Not Given .BOLUS ONE Metoclopramide HCl 5 mg 05/19/20 22:05 05/19/20 22:10 Reglan IVPUSH 05/19/20 22:06 5 mg ONETIME ONE Administration Metoclopramide HCl 5 mg 05/20/20 01:36 05/20/20 01:42 Reglan IVPUSH 05/20/20 01:37 5 mg ONETIME ONE Administration Ondansetron HCl 4 mg 05/19/20 20:35 05/19/20 20:44 Zofran IVPUSH 05/19/20 20:36 4 mg ONETIME ONE Administration Promethazine HCl 25 mg 05/19/20 23:44 05/19/20 23:49 Phenergan IM 05/19/20 23:45 25 mg ONETIME ONE Administration - Re-Assessments/Exams Free Text/Narrative Re-Assessment/Exam: 05/19/20 22:06 Patient is not doing well with the Zofran she still has nausea vomiting cannot keep the contrast down and she said Reglan is the only thing that ever really works for her Phenergan suppositories have worked in the past but the Phenergan she got from the pharmacy rather than the Reglan she was prescribed here did not do the job today we will try 5 mg of Reglan repeat if needed. 05/19/20 23:44 Still having problems with keeping fluids down we will try 25 of IM Phenergan. 05/20/20 01:57 I gave 5 more milligrams of Reglan. Nothing seems to be working out well we will give her another liter of fluid before she goes. Denies using any marijuana. I was just informed that this patient would like to go home. We will discharge her. I did discuss that if Reglan is the best thing for her then she should use the prescription received she received earlier that was not filled yesterday and get it filled. Did have her CT done with and this was for the most part unrevealing she did exhibit some fluid-filled loops of small and large bowel but no obstruction she had some mild wall thickening in the rectosigmoid region most likely related to enterocolitis. This information was discussed with the patient and could be a finding associated with her gastroenteritis/enterocolitis. Departure - Departure Time of Disposition: 02:00 Disposition: Home, Self-Care 01 Clinical Impression: Nausea vomiting and diarrhea - Discharge Information Prescriptions: Potassium Chloride [Klor-Con M20] 20 meq PO Q12H #4 tab.er Instructions: Nausea and Vomiting, Adult, [id number] Referrals: Jayla Figueroa MD [Primary Care Provider] - Forms: ED Department Discharge Additional Instructions: Return to the emergency room with any questions problems or worsening symptoms. Your potassium is a little low I will put a prescription in for you to take oral potassium when you feel like you can keep it down. Follow-up with your regular doctor on Sunday if needed. Sepsis Event Note (ED) - Focused Exam Vital Signs: Vital Signs Temp Pulse Resp BP Pulse Ox 05/19/20 20:06 37.0 C 81 18 169/97 H 98 - My Orders Last 24 Hours: My Active Orders 05/19/20 20:55 Abdomen Pelvis w Cont [CT] Stat - Assessment/Plan Last 24 Hours: My Active Orders 05/19/20 20:55 Abdomen Pelvis w Cont [CT] Stat
[2020-05-19] MEDS ORDERED: Ondansetron 4 MG/2 ML SDV IVPUSH ONE (20:35)
[2020-05-19] MEDS ORDERED: Lactated Ringers 1,000 ML IV ONE (20:35)
[2020-05-19] MEDS ORDERED: Metoclopramide 10 MG/2 ML SDV IVPUSH ONE (22:05)
[2020-05-19] MEDS ORDERED: Promethazine 25 MG/ML SDV IM ONE (23:44)
[2020-05-20] MEDS ORDERED: Metoclopramide 10 MG/2 ML SDV IVPUSH ONE (01:36)
[2020-05-20] MEDS ORDERED: Lactated Ringers 1,000 ML IV ONE (01:56)
== END 2020-05-20 02:18 | disposition home or self-care (01) ==
LOC: JD.ED 19:58
DX: R11.2 Nausea with vomiting, unspecified (principal); R19.7 Diarrhea, unspecified; R10.32 Left lower quadrant pain; J45.909 Unspecified asthma, uncomplicated; E66.9 Obesity, unspecified; Z90.49 Acquired absence of other specified parts of digestive tract; Z88.0 Allergy status to penicillin; Z91.018 Allergy to other foods; Z88.8 Allergy status to other drugs, medicaments and biological substances; Z91.09 Other allergy status, other than to drugs and biological substances; Z68.36 Body mass index [BMI] 36.0-36.9, adult
CPT/HCPCS: 36415; 74177; 80048; 81001; 81025; 84703; 85025; 96372; 96374; 96375; 96376; 99284; J2405; J2550; J2765; J7120

== ENCOUNTER 2020-05-22 03:18 | Emergency (ER) | payer BC ==
[2020-05-22] MEDS ORDERED: Metoclopramide 10 MG/2 ML SDV IVPUSH ONE ×2 (04:19→10:01)
[2020-05-22] MEDS ORDERED: Lactated Ringers 1,000 ML IV ONE ×2 (04:20→05:08)
[2020-05-22] MEDS: Potassium Chloride 10 MEQ in Premix Bag 1 BAG IV SCH ×4 (05:19→08:44)
--- NOTE | 2020-05-22 05:45 | EDM.PDOC ---
<Brenden Lott - Last Filed: 05/22/20 05:45> ED HPI GENERAL MEDICAL PROBLEM - General Chief Complaint: Abdominal Pain Stated Complaint: ABDOMINAL PAIN/VOMITING Time Seen by Provider: 05/22/20 03:30 - History of Present Illness INITIAL COMMENTS - FREE TEXT/NARRATIVE: 25-year-old female presents to the emergency room with continued nausea vomiting and abdomen pain. This is been a continued problem I saw the patient not long ago. She was too busy to get her Reglan refilled as well as the potassium. She was seen in the emergency room in [place]. But did not follow-up with her regular provider in [place]. She continues to have frequent nausea and vomiting. This aggravates her abdominal discomfort. I saw her last year 3 days ago she had a thorough evaluation including abdominal CT that was unrevealing. It is been suggested in the past that maybe she has cannabinoid induced click vomiting syndrome, however the patient dismisses this says she is not used marijuana in over a month. Abdominal Pain Score (Numeric/FACES): 7 - Related Data Allergies Allergy/AdvReac Type Severity Reaction Status Date / Time cheese Allergy unknown Verified 05/22/20 03:47 gluten Allergy unknown Verified 05/22/20 03:47 mold Allergy unknown Verified 05/22/20 03:47 Penicillins Allergy Hives Verified 05/22/20 03:47 Home Meds: Home Meds Potassium Chloride [Klor-Con M20] 20 meq PO Q12H #4 tab.er 05/20/20 [Rx] Past Medical History - Past Health History Medical/Surgical History: Denies Medical/Surgical History HEENT History: Reports: None Cardiovascular History: Reports: None Respiratory History: Reports: Asthma Gastrointestinal History: Reports: None Genitourinary History: Reports: None 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 Musculoskeletal History: Reports: Back Pain, Chronic Neurological History: Reports: None Psychiatric History: Reports: Anxiety Endocrine/Metabolic History: Reports: Obesity/BMI 30+ Hematologic History: Reports: None Immunologic History: Reports: None Oncologic (Cancer) History: Reports: None Dermatologic History: Reports: None - Infectious Disease History Infectious Disease History: Reports: Chicken Pox - Past Surgical History HEENT Surgical History: Reports: Adenoidectomy, Myringotomy w Tube(s), Tonsillectomy GI Surgical History: Reports: Cholecystectomy Social & Family History - Family History Family Medical History: Noncontributory - Tobacco Use Tobacco Use Status *Q: Never Tobacco User - Caffeine Use Caffeine Use: Reports: None - Recreational Drug Use Recreational Drug Use: Yes Recreational Drug Type: Reports: Marijuana/Hashish - Living Situation & Occupation Living situation: Reports: Single, Alone Occupation: Employed ([employer]) ED ROS GENERAL - Review of Systems Review Of Systems: See Below Constitutional: Reports: No Symptoms HEENT: Reports: No Symptoms Respiratory: Reports: No Symptoms Cardiovascular: Reports: No Symptoms GI/Abdominal: Reports: Abdominal Pain, Nausea, Vomiting : Reports: No Symptoms Musculoskeletal: Reports: No Symptoms Neurological: Reports: No Symptoms ED EXAM, GI/ABD - Physical Exam Exam: See Below Exam Limited By: No Limitations General Appearance: Alert, No Apparent Distress, Obese Head: Atraumatic, Normocephalic Neck: Normal Inspection, Supple, Non-Tender, Full Range of Motion Respiratory/Chest: No Respiratory Distress, Lungs Clear, Normal Breath Sounds Cardiovascular: Regular Rate, Rhythm, No Edema, No Murmur GI/Abdominal Exam: Normal Bowel Sounds, Soft, Tender (Mild diffuse tenderness no rigidity rebound or guarding noted) Back Exam: Normal Inspection. No: CVA Tenderness (L), CVA Tenderness (R) Course - Re-Assessments/Exams Free Text/Narrative Re-Assessment/Exam: 05/22/20 05:50 Labs reviewed anion gap is up potassium is low at 2.8 the patient does not believe she can keep oral potassium down at this point will start IV potassium. And give a second liter of LR. Departure - Departure Disposition: Home, Self-Care 01 Clinical Impression: Vomiting, Abdominal pain - Discharge Information Instructions: Abdominal Pain, Adult, Nausea and Vomiting, Adult Referrals: Jayla Figueroa MD [Primary Care Provider] - Forms: ED Department Discharge Additional Instructions: Rest. Clear liquids only until this evening. Than careful bland diet as tolerated. You may alternate the phenergan and thorazine previously prescribed for nausea and vomiting as needed. Avoid further marijuana. Follow up clinic as needed. Your potassium was very low to today at 2.8. Bananas, other fruit and vegetables are good sources of potassium. Return to ED if symptoms worsening in any way. Sepsis Event Note (ED) - Evaluation Sepsis Screening Result: No Definite Risk <Emeli,Conner L - Last Filed: 05/22/20 10:18> Course - Vital Signs Last Recorded V/S: Last Vital Signs Temp 97.9 F 05/22/20 10:09 Pulse 66 05/22/20 10:09 Resp 16 05/22/20 10:09 BP 142/91 H 05/22/20 10:09 Pulse Ox 99 05/22/20 10:09 - Orders/Labs/Meds Orders: Active Orders 24 hr Category Date Time Status Lactated Ringers [Ringers, Lactated] 1,000 ml Med 05/22/20 07:15 Active IV ASDIRECTED Medication Orders Lactated Ringer's (Ringers, Lactated) 1,000 mls @ 150 mls/hr IV ASDIRECTED MARIBELL Labs: Laboratory Tests 05/22/20 05/22/20 Range/Units 03:50 03:50 WBC 4.49 (3.98-10.04) K/mm3 RBC 4.54 (3.98-5.22) M/mm3 Hgb 12.5 (11.2-15.7) gm/dl Hct 38.0 (34.1-44.9) % MCV 83.7 (79.4-94.8) fl MCH 27.5 (25.6-32.2) pg MCHC 32.9 (32.2-35.5) g/dl RDW Std Deviation 40.9 (36.4-46.3) fL Plt Count 222 (182-369) K/mm3 MPV 10.2 (9.4-12.3) fl Neut % (Auto) 64.6 (34.0-71.1) % Lymph % (Auto) 20.3 (19.3-51.7) % [place] % (Auto) 14.7 H (4.7-12.5) % Eos % (Auto) 0 L (0.7-5.8) Baso % (Auto) 0.2 (0.1-1.2) % Neut # (Auto) 2.90 (1.56-6.13) K/mm3 Lymph # (Auto) 0.91 L (1.18-3.74) K/mm3 [place] # (Auto) 0.66 H (0.24-0.36) K/mm3 Eos # (Auto) 0.00 L (0.04-0.36) K/mm3 Baso # (Auto) 0.01 (0.01-0.08) K/mm3 Manual Slide Review Normal smear Sodium 137 (136-145) mEq/L Potassium 2.8 L (3.5-5.1) mEq/L Chloride 99 (98-107) mEq/L Carbon Dioxide 24 (21-32) mEq/L Anion Gap 16.8 H (5-15) BUN 8 (7-18) mg/dL Creatinine 0.7 (0.55-1.02) mg/dL Est Cr Clr Drug Dosing 119.47 mL/min Estimated GFR (MDRD) > 60 (>60) mL/min BUN/Creatinine Ratio 11.4 L (14-18) Glucose 126 H (74-106) mg/dL Calcium 8.6 (8.5-10.1) mg/dL Total Bilirubin 0.4 (0.2-1.0) mg/dL AST 24 (15-37) U/L ALT 38 (14-59) U/L Alkaline Phosphatase 49 (46-116) U/L Total Protein 7.5 (6.4-8.2) g/dl Albumin 3.8 (3.4-5.0) g/dl Globulin 3.7 gm/dL Albumin/Globulin Ratio 1.0 (1-2) Meds: Medications Generic Name Dose Route Start Last Admin Trade Name Freq PRN Reason Stop Dose Admin Lactated Ringer's 1,000 mls @ 150 mls/hr 05/22/20 07:15 Ringers, Lactated IV ASDIRECTED MARIBELL Discontinued Medications Generic Name Dose Route Start Last Admin Trade Name Freq PRN Reason Stop Dose Admin Lactated Ringer's 1,000 mls @ 999 mls/hr 05/22/20 04:20 05/22/20 04:28 Ringers, Lactated IV 05/22/20 05:20 999 mls/hr .BOLUS ONE Administration Potassium Chloride 10 meq/ 100 mls @ 100 mls/hr 05/22/20 05:15 05/22/20 08:44 Premix IV 05/22/20 09:14 100 mls/hr Q1H MARIBELL Administration Lactated Ringer's 1,000 mls @ 999 mls/hr 05/22/20 05:08 05/22/20 06:20 Ringers, Lactated IV 05/22/20 06:08 999 mls/hr .BOLUS ONE Administration Metoclopramide HCl 10 mg 05/22/20 04:19 05/22/20 04:27 Reglan IVPUSH 05/22/20 04:20 10 mg ONETIME ONE Administration Metoclopramide HCl 5 mg 05/22/20 10:01 05/22/20 10:05 Reglan IVPUSH 05/22/20 10:02 5 mg ONETIME ONE Administration Prochlorperazine Edisylate 10 mg 05/22/20 06:55 05/22/20 07:07 Compazine IVPUSH 05/22/20 06:56 10 mg ONETIME ONE Administration - Re-Assessments/Exams Free Text/Narrative Re-Assessment/Exam: 05/22/20 10:02. Have assumed care from Dr Lott at change of shift. I agree with his hx and eval. as documented. Her potassium is in. She is starting to get nauseated again. I did review her report from [place] ED from yesterday. Abd Xrays did show mild ileus per that report. Her drug screen was positive for marijuana. WBC today nl, K 2.8. She has had 40 meq KCL IV> She has now had close to 3 liters fluid. Will give further reglan 5 mg IV, discharge instr. as documented. Departure - Departure Time of Disposition: 10:04 Condition: Fair Sepsis Event Note (ED) - Focused Exam Vital Signs: Vital Signs Temp Pulse Resp BP Pulse Ox 05/22/20 10:09 97.9 F 66 16 142/91 H 99 05/22/20 07:43 97.0 F 60 16 135/83 98 05/22/20 03:43 97.6 F 64 16 144/91 H 98
[2020-05-22] MEDS ORDERED: Prochlorperazine 10 MG/2 ML SDV IVPUSH ONE (06:55)
[2020-05-22] MEDS ORDERED: Lactated Ringers 1,000 ML IV SCH (07:15)
== END 2020-05-22 10:18 | disposition home or self-care (01) ==
LOC: JD.ED 03:18
DX: R11.2 Nausea with vomiting, unspecified (principal); R10.9 Unspecified abdominal pain; E66.9 Obesity, unspecified; J45.909 Unspecified asthma, uncomplicated; Z68.34 Body mass index [BMI] 34.0-34.9, adult; Z88.0 Allergy status to penicillin; Z91.011 Allergy to milk products; Z91.09 Other allergy status, other than to drugs and biological substances; Z90.89 Acquired absence of other organs; Z90.49 Acquired absence of other specified parts of digestive tract
CPT/HCPCS: 36415; 80053; 85025; 96365; 96366; 96375; 96376; 99284; J0780; J2765; J3480; J7120

== ENCOUNTER 2020-08-22 21:52 | Emergency (ER) | payer BC ==
--- NOTE | 2020-08-22 22:07 | EDM.PDOC ---
ED HPI GENERAL MEDICAL PROBLEM - General Chief Complaint: Upper Extremity Injury/Pain Stated Complaint: RT HAND INJURY FROM FALL ON ICE Time Seen by Provider: 08/22/20 22:00 Source of Information: Reports: Patient, RN Notes Reviewed History Limitations: Reports: No Limitations - History of Present Illness INITIAL COMMENTS - FREE TEXT/NARRATIVE: Patient is a 25-year-old female who presents to the ED for the evaluation of a right wrist injury. Patient states that she was taking out the garbage, when she slipped on the ice/snow, and caught herself with an outstretched right hand. She developed a bump to the posterior aspect of her right wrist, near the radial aspect of the wrist. She states she can still move her fingers pretty good, but movement at the wrist has been quite limited. She did not take any pain medications prior to coming to the ER. Patient denies any other sick-like symptoms, fever/chills, cough/shortness of breath, nausea/vomiting/diarrhea. Patient notes she is right-hand dominant. Right Wrist Pain Score (Numeric/FACES): 1 - Related Data Allergies Allergy/AdvReac Type Severity Reaction Status Date / Time cheese Allergy unknown Verified 08/22/20 21:59 gluten Allergy unknown Verified 08/22/20 21:59 mold Allergy unknown Verified 08/22/20 21:59 Penicillins Allergy Hives Verified 08/22/20 21:59 Home Meds: Home Meds Acetaminophen/HYDROcodone [[place] 325-5 MG] 1 tab PO Q6H PRN #15 tablet 08/22/20 [Rx] Lactobacillus Combo No.10 [Probiotic] 1 tab PO DAILY 08/22/20 [History] Past Medical History - Past Health History Medical/Surgical History: Denies Medical/Surgical History HEENT History: Reports: None Cardiovascular History: Reports: None Respiratory History: Reports: Asthma Gastrointestinal History: Reports: None Genitourinary History: Reports: None DIRECTOR OF FINANCIAL REPORTING History: Reports: None Musculoskeletal History: Reports: Back Pain, Chronic Neurological History: Reports: None Psychiatric History: Reports: Anxiety Endocrine/Metabolic History: Reports: Obesity/BMI 30+ Hematologic History: Reports: None Immunologic History: Reports: None Oncologic (Cancer) History: Reports: None Dermatologic History: Reports: None - Infectious Disease History Infectious Disease History: Reports: Chicken Pox - Past Surgical History HEENT Surgical History: Reports: Adenoidectomy, Myringotomy w Tube(s), Tonsillectomy Cardiovascular Surgical History: Reports: None Respiratory Surgical History: Reports: None GI Surgical History: Reports: Cholecystectomy Endocrine Surgical History: Reports: None Musculoskeletal Surgical History: Reports: None Social & Family History - Family History Family Medical History: No Pertinent Family History - Tobacco Use Tobacco Use Status *Q: Never Tobacco User Second Hand Smoke Exposure: No - Caffeine Use Caffeine Use: Reports: None - Recreational Drug Use Recreational Drug Use: No - Living Situation & Occupation Living situation: Reports: Single, Alone Occupation: Employed ([employer]) Review of Systems - Review of Systems Review Of Systems: Comprehensive ROS is negative, except as noted in HPI. ED EXAM, GENERAL - Physical Exam Exam: See Below Exam Limited By: No Limitations General Appearance: Alert, WD/WN, No Apparent Distress Peripheral Pulses: 2+: Radial (L), Radial (R) Extremities: Normal Inspection (overall, but there is a lump to the radial aspect of the patient's posterior R wrist), Normal Capillary Refill, Limited Range of Motion (of right wrist d/t pain) Neurological: Alert, Oriented, Normal Cognition, No Motor/Sensory Deficits Psychiatric: Normal Affect, Normal Mood Skin Exam: Warm, Dry, Intact, Normal Color, No Rash ED TRAUMA EXTREMITY PROCEDURES - Splinting Left Upper Extremity Splint Site: left wrist Pre-Procedure NV Status: Normal Post-Procedure NV Status: Normal Splint Material: Fiberglass Splint Design: Gutter (ulnar gutter short arm) Applied & Form Fitted By: Provider Provider Post-Splint Application NV Check: NV Status Normal, Good Position Complications: No Course - Vital Signs Last Recorded V/S: Last Vital Signs Temp 97.8 F 08/22/20 21:57 Pulse 90 08/22/20 21:57 Resp 16 08/22/20 21:57 BP 139/84 08/22/20 21:57 Pulse Ox 98 08/22/20 21:57 - Orders/Labs/Meds Orders: Active Orders 24 hr Category Date Time Status Wrist Comp Min 3V Rt [CR] Stat Exams 08/22/20 22:00 Ordered Meds: Medications Discontinued Medications Generic Name Dose Route Start Last Admin Trade Name Freq PRN Reason Stop Dose Admin Hydrocodone Bitart/Acetaminophen 2 tab 08/22/20 22:36 [place] 325-5 Mg PO 08/22/20 22:37 ONETIME ONE - Re-Assessments/Exams Free Text/Narrative Re-Assessment/Exam: 08/22/20 22:06 Patient presents to the ED for her right wrist injury. She denies any chance of at this time. We will go ahead and get x-rays. She is not requesting anything for pain management at this time. 08/22/20 22:20 The patient's distal radius does have a fracture, on the ulnar aspect of the distal radius. This does not appear displaced, and should heal nicely. We will get her in a splint and have her follow-up with Ortho for casting purposes. Departure - Departure Time of Disposition: 22:21 Disposition: Home, Self-Care 01 Condition: Good Clinical Impression: Distal radius fracture, right Qualifiers: Encounter type: initial encounter Fracture type: closed Fracture morphology: other fracture Qualified Code(s): S52.591A - Other fractures of lower end of right radius, initial encounter for closed fracture - Discharge Information *PRESCRIPTION DRUG MONITORING PROGRAM REVIEWED*: No *COPY OF PRESCRIPTION DRUG MONITORING REPORT IN PATIENT MARIBELL: No Prescriptions: Acetaminophen/HYDROcodone [[place] 325-5 MG] 1 tab PO Q6H PRN #15 tablet PRN Reason: Pain Instructions: Wrist Fracture Treated With Immobilization, [id number] Referrals: Jayla Figueroa MD [Primary Care Provider] - Forms: ED Department Discharge Additional Instructions: You have been evaluated in the ED for your right wrist injury. Your x-ray demonstrated a fracture of your distal radius, this is nondisplaced and should heal fine. A splint was placed at [facility]'s ER visit, to allow for some moderate swelling. Please use ice as tolerated to the affected area. You may elevate the affected area to provide further relief from swelling. You may take Tylenol 500 mg or ibuprofen 600mg q6 hrs for pain relief. Please do so until you have a tolerable level of pain with activity. Do not exceed 4000mg Tylenol, Do not exceed 3200mg ibuprofen in a 24 hour time period. You were given a prescription for a strong pain medication, hydrocodone/acetaminophen 5/325, please take 1 tab every 6 hours as needed for pain not relieved by Tylenol or ibuprofen alone. Please note this does contain Tylenol in it, so do not take more than 4000 mg in a 24-hour time span. These medications can be addictive, so please take as few as possible to achieve adequate pain control. These meds can also be quite constipating, recommend that you increase your oral fluid intake and take a stool softener like MiraLAX while taking these medications. Please call Ortho for follow-up and further evaluation Dr. Cai is our orthopedic surgeon, his office number is [phone]. Please call and set up an appointment as soon as possible for further management. Please return to ED if your symptoms should change or worsen. Sepsis Event Note (ED) - Evaluation Sepsis Screening Result: No Definite Risk - Focused Exam Vital Signs: Vital Signs Temp Pulse Resp BP Pulse Ox 08/22/20 21:57 97.8 F 90 16 139/84 98 - My Orders Last 24 Hours: My Active Orders 08/22/20 22:00 Wrist Comp Min 3V Rt [CR] Stat - Assessment/Plan Last 24 Hours: My Active Orders 08/22/20 22:00 Wrist Comp Min 3V Rt [CR] Stat
[2020-08-22] MEDS ORDERED: Acetaminophen/HYDROcodone 325-5 MG Tab PO ONE (22:36)
--- NOTE | 2020-08-23 08:03 | CR ---
Wrist: 3 views of the right wrist were obtained. Comparison: No previous study. Slightly comminuted distal radial fracture is seen with transverse line through the metaphysis as well as additional 90 degree extension of two fracture lines into the radial articular margin. Alignment remains close to anatomic. Equivocal nondisplaced fracture within the distal ulna. No additional bony abnormality is seen. Diffuse soft tissue swelling is noted. Impression: 1. Distal radial fracture with equivocal distal ulnar fracture. 2. Soft tissue swelling. Diagnostic code #3
== END 2020-08-22 23:00 | disposition home or self-care (01) ==
LOC: JD.ED 21:52
DX: S52.591A Other fractures of lower end of right radius, initial encounter for closed fracture (principal); S52.601A Unspecified fracture of lower end of right ulna, initial encounter for closed fracture; J45.909 Unspecified asthma, uncomplicated; E66.9 Obesity, unspecified; Z68.36 Body mass index [BMI] 36.0-36.9, adult; Z91.018 Allergy to other foods; Z91.048 Other nonmedicinal substance allergy status; Z88.0 Allergy status to penicillin; W00.0XXA Fall on same level due to ice and snow, initial encounter
CPT/HCPCS: 29125; 73110; 99283; A9270

== ENCOUNTER 2022-12-05 22:43 | Emergency (ER) | payer SELFPAY ==
[2022-12-05] MEDS ORDERED: Sodium Chloride 0.9% 500 ML IV STA (23:46)
[2022-12-05] MEDS ORDERED: Metoclopramide 10 MG/2 ML SDV IVPUSH ONE (23:53)
== END 2022-12-06 01:00 | disposition home or self-care (01) ==
LOC: JD.ED 22:43
DX: K52.9 Noninfective gastroenteritis and colitis, unspecified (principal); E66.9 Obesity, unspecified; Z68.33 Body mass index [BMI] 33.0-33.9, adult; Z91.018 Allergy to other foods; Z88.0 Allergy status to penicillin; Z91.048 Other nonmedicinal substance allergy status
CPT/HCPCS: 36415; 80053; 85025; 96374; 99284; J2765; J7030

== ENCOUNTER 2023-12-31 23:23 | Emergency (ER) | payer SELFPAY ==
[2024-01-01] MEDS: Prochlorperazine 10 MG/2 ML SDV IVPUSH ONE (01:02)
[2024-01-01] MEDS: Sodium Chloride 0.9% 1,000 ML IV ONE ×2 (01:02→02:12)
[2024-01-01] MEDS: Sodium Chloride 0.9% 10 ML Syringe FLUSH PRN (01:03)
== END 2024-01-01 02:16 | disposition home or self-care (01) ==
LOC: JD.ED 23:23
DX: K52.9 Noninfective gastroenteritis and colitis, unspecified (principal); J45.909 Unspecified asthma, uncomplicated; E66.9 Obesity, unspecified; Z68.36 Body mass index [BMI] 36.0-36.9, adult; Z88.0 Allergy status to penicillin; Z91.018 Allergy to other foods; Z88.8 Allergy status to other drugs, medicaments and biological substances; Z79.899 Other long term (current) drug therapy; Z90.49 Acquired absence of other specified parts of digestive tract
CPT/HCPCS: 96361; 96374; 99284; J0780; J3490; J7030

== ENCOUNTER 2024-01-01 12:18 | Emergency (ER) | payer SELFPAY ==
[2024-01-01] MEDS: Sodium Chloride 0.9% 1,000 ML IV STA (13:53)
[2024-01-01] MEDS: Metoclopramide 10 MG/2 ML SDV IVPUSH ONE (13:54)
[2024-01-01] MEDS: diphenhydrAMINE 50 MG/ML SDV IVPUSH ONE (13:54)
[2024-01-01] MEDS: Sodium Chloride 0.9% 10 ML Syringe FLUSH PRN (13:55)
[2024-01-01] MEDS: HYDROmorphone 0.5 MG/0.5 ML Syringe IVPUSH ONE (13:55)
[2024-01-01 13:56] LABS: BASOPHILS PERCENT AUTO 0.2 % (0.0-1.0); HEMATOCRIT 35.6 % (37.0-47.0); HEMOGLOBIN 12.3 gm/dl (12.0-16.0); IMMATURE GRAN ABSOLUTE AUTO 0.04 K/mm3 (0.00-0.05); IMMATURE GRAN PERCENT AUTO 0.4 % (0.0-0.4); LYMPHOCYTES ABSOLUTE AUTO 1.5 K/mm3 (1.0-4.8); LYMPHOCYTES PERCENT AUTO 13.2 % (24.0-44.0); MEAN CORPUSCULAR HEMOGLOBIN 29.1 pg (28.0-32.0); MEAN CORPUSCULAR HGB CONC 34.6 g/dl (32.0-36.0); MEAN CORPUSCULAR VOLUME 84.2 fl (83.0-99.0); MEAN PLATELET VOLUME 10.4 fl (9.4-12.3); MONOCYTES ABSOLUTE AUTO 0.8 K/mm3 (0.0-0.8); MONOCYTES PERCENT AUTO 7.1 % (0.0-8.0); NEUTROPHILS ABSOLUTE AUTO 8.8 K/mm3 (1.8-7.7); NEUTROPHILS PERCENT AUTO 79.1 % (41.0-71.0); PLATELET COUNT,PLT 264 K/mm3 (150-400); RED BLOOD CELL COUNT 4.23 M/mm3 (4.10-5.30); WHITE BLOOD CELL COUNT,WBC 11.14 K/mm3 (3.9-11.3)
[2024-01-01 14:04] LABS: A/G RATIO 1.3 (1-2); ALBUMIN 4.1 g/dl (3.4-5.0); ANION GAP 14.1 (5-15); BILIRUBIN TOTAL 0.8 mg/dL (0.2-1.0); CALCIUM 8.7 mg/dL (8.5-10.1); CREATININE 0.8 mg/dL (0.55-1.02); EST CRCL DRUG DOSING (CG) 101.81 mL/min; MAGNESIUM 1.8 mg/dL (1.8-2.4); POTASSIUM,K 3.1 mEq/L (3.5-5.1); PROTEIN TOTAL,TP 7.3 g/dl (6.4-8.2)
== END 2024-01-01 16:04 | disposition home or self-care (01) ==
LOC: JD.ED 12:18
DX: A08.4 Viral intestinal infection, unspecified (principal); Z91.018 Allergy to other foods; Z91.048 Other nonmedicinal substance allergy status; Z88.0 Allergy status to penicillin; Z79.899 Other long term (current) drug therapy
CPT/HCPCS: 36415; 80053; 83690; 83735; 84703; 85025; 93005; 96361; 96374; 96375; 99285; J1170; J1200; J2765; J3490; J7030

== ENCOUNTER 2024-01-02 07:14 | Emergency (ER) | payer SELFPAY ==
[2024-01-02 08:11] LABS: BASOPHILS PERCENT AUTO 0.2 % (0.0-1.0); EOSINOPHILS ABSOLUTE AUTO 0.1 K/mm3 (0.0-0.4); EOSINOPHILS PERCENT AUTO 0.6 % (0.0-6.0); HEMATOCRIT 38.6 % (37.0-47.0); IMMATURE GRAN ABSOLUTE AUTO 0.05 K/mm3 (0.00-0.05); IMMATURE GRAN PERCENT AUTO 0.5 % (0.0-0.4); LYMPHOCYTES ABSOLUTE AUTO 1.9 K/mm3 (1.0-4.8); LYMPHOCYTES PERCENT AUTO 17.2 % (24.0-44.0); MEAN CORPUSCULAR HGB CONC 33.7 g/dl (32.0-36.0); MEAN PLATELET VOLUME 10.2 fl (9.4-12.3); MONOCYTES ABSOLUTE AUTO 0.7 K/mm3 (0.0-0.8); MONOCYTES PERCENT AUTO 6.4 % (0.0-8.0); NEUTROPHILS ABSOLUTE AUTO 8.1 K/mm3 (1.8-7.7); NEUTROPHILS PERCENT AUTO 75.1 % (41.0-71.0); PLATELET COUNT,PLT 311 K/mm3 (150-400); RED BLOOD CELL COUNT 4.49 M/mm3 (4.10-5.30); WHITE BLOOD CELL COUNT,WBC 10.81 K/mm3 (3.9-11.3)
[2024-01-02] MEDS: Sodium Chloride 0.9% 1,000 ML IV STA (08:18)
[2024-01-02] MEDS: HYDROmorphone 0.5 MG/0.5 ML Syringe IVPUSH ONE ×2 (08:20→13:11)
[2024-01-02] MEDS: Metoclopramide 10 MG/2 ML SDV IVPUSH ONE (08:22)
[2024-01-02] MEDS: Sodium Chloride 0.9% 10 ML Syringe FLUSH PRN ×2 (08:25→10:45)
[2024-01-02 08:30] LABS: A/G RATIO 1.3 (1-2); ALBUMIN 4.4 g/dl (3.4-5.0); ANION GAP 16.8 (5-15); BILIRUBIN TOTAL 0.7 mg/dL (0.2-1.0); CALCIUM 9.1 mg/dL (8.5-10.1); EST CRCL DRUG DOSING (CG) 81.45 mL/min; POTASSIUM,K 2.8 mEq/L (3.5-5.1); PROTEIN TOTAL,TP 7.9 g/dl (6.4-8.2)
[2024-01-02] MEDS: Iopamidol 612 MG/ML 100 ML Bottle IVPUSH ONE (09:07)
[2024-01-02] MEDS: Prochlorperazine 10 MG/2 ML SDV IVPUSH ONE (10:08)
[2024-01-02] MEDS: diphenhydrAMINE 50 MG/ML SDV IVPUSH ONE (10:10)
[2024-01-02] MEDS: Potassium Chloride 10 MEQ in Premix Bag 1 BAG IV SCH (10:11)
[2024-01-02 10:14] LABS: APPEARANCE,URINE CLEAR (Clear); BILIRUBIN,URINE NEGATIVE (Negative); COLOR,URINE YELLOW (Yellow); GLUCOSE,URINE NEGATIVE (Negative); KETONES,URINE 2+ (Negative); LEUKOCYTE ESTERASE,URINE NEGATIVE (Negative); NITRITE,URINE NEGATIVE (Negative); OCCULT BLOOD,URINE NEGATIVE (Negative); PROTEIN,URINE NEGATIVE (Negative); UROBILINOGEN,URINE 0.2 (0.2-1.0)
[2024-01-02 11:06] LABS: AMPHETAMINES SCREEN, URINE NEGATIVE (CUTOFF=500)
[2024-01-02 11:07] LABS: BARBITURATE SCREEN,URINE NEGATIVE (CUTOFF=200); BENZODIAZEPINES SCREEN,URINE NEGATIVE (CUTOFF=150); BUPRENORPHINE SCREEN,URINE NEGATIVE (CUTOFF=10); METHADONE SCREEN, URINE NEGATIVE (CUTOFF=200); METHAMPHETAMINES SCREEN, URINE NEGATIVE (CUTOFF=500); OXYCODONE SCREEN,URINE NEGATIVE (CUT0FF=100); THC SCREEN,URINE 20 NG/ML PRESUMPTIVE POSITIVE (CUTOFF=50)
[2024-01-02 11:30] LABS: BACTERIA,URINE RARE /hpf (FEW); EPITHELIAL CELLS,URINE 0-5 /hpf (0-5); MUCUS,URINE NOT SEEN /hpf (FEW); RBC,URINE 0-5 /hpf (0-5); WBC,URINE 0-5 /hpf (0-5)
[2024-01-02] MEDS: Promethazine 25 MG Tab PO ONE (13:11)
[2024-01-02] MEDS: Sodium Chloride 0.9% 500 ML ONE (13:48)
== END 2024-01-02 14:57 | disposition home or self-care (01) ==
LOC: JD.ED 07:14
DX: R10.13 Epigastric pain (principal); R11.2 Nausea with vomiting, unspecified; E66.9 Obesity, unspecified; Z90.49 Acquired absence of other specified parts of digestive tract; Z79.899 Other long term (current) drug therapy; Z88.0 Allergy status to penicillin; Z91.018 Allergy to other foods; Z91.011 Allergy to milk products; Z68.36 Body mass index [BMI] 36.0-36.9, adult
CPT/HCPCS: 36415; 74177; 80053; 80306; 81001; 83690; 83735; 84703; 85025; 96361; 96374; 96375; 96376; 99284; J0780; J1170; J1200; J2765; J3480; J3490; J7030; J7040; J8597; Q9967